=== PATIENT | female | born 1990 | race Caucasian/White ===

== ENCOUNTER 2016-11-22 14:49 | Emergency (ER) | payer BC, OTHER ==
[~2016-11-22] VITALS: Ht 152.4 cm; Wt 94.5 kg
[~2016-11-22 14:49] MED LIST: CITA20TA9 PO; GLC/500 PO; HMLI SQ; WARF5TAB7 PO
[2016-11-22 14:53] VITALS: TEMP 37.1; Ht 152.4 cm; Wt 94.5 kg
--- NOTE | 2016-11-22 17:37 | DIAGNOSTIC IMAGING REPORT ---
CHEST ONE VIEW PORTABLE CLINICAL HISTORY: Mood Disorder COMPARISON STUDY: 01/28/2016 FINDINGS: The cardiac and mediastinal contours are normal. There is no evidence of focal pulmonary consolidation. There is no evidence of failure. No pleural effusions are visualized.[ IMPRESSION: No active disease in the chest. Electronically signed by: Kin Smith M.D. 11/22/2016 5:36 PM Dictated Date/Time: 11/22/2016 5:35 PM
[2016-11-22 17:46] LABS: BASO % 0.2 %; BASO ABS # 0.02 K/uL (0-0.2); COMPLETE YES; EOS % 1.5 %; HEMATOCRIT 38.5 % (37-47); IG% 0.6 %; LYMPH % 22.3 %; LYMPH ABS # 2.19 K/uL (1.2-3.4); MEAN CELL VOLUME 82.4 fL (80-100); MEAN CORPUSCULAR HEMOGLOBIN 28.3 pg (25-34); MEAN CORPUSCULAR HGB CONC 34.3 g/dl (32-36); MEAN PLATELET VOLUME 10.1 fL (7.4-10.4); MONO % 5.1 %; NEUT % 70.3 %; PLATELET COUNT 235 K/uL (130-400); RED BLOOD COUNT 4.67 M/uL (4.2-5.4); WHITE BLOOD COUNT 9.81 K/uL (4.8-10.8)
[2016-11-22] MEDS ORDERED: EFFSR75 PO (17:55)
[2016-11-22 17:56] LABS: INR 1.2 (0.9-1.1); PROTHROMBIN TIME (PATIENT) 12.4 SECONDS (9.0-12.0)
[2016-11-22 18:05] LABS: BUN/CREATININE RATIO 23.9 (10-20); CALCIUM 9.1 mg/dl (8.5-10.1); CREATININE 0.65 mg/dl (0.60-1.20); POTASSIUM 3.8 mmol/L (3.5-5.1)
[2016-11-22] MEDS ORDERED: OPTIRAY 320 IV PRN (18:15)
[2016-11-22 18:16] LABS: ALB/GLOB RATIO 1.3 (0.9-2); THYROID STIMULATING HORMONE 2.35 uIu/ml (0.300-4.500)
--- NOTE | 2016-11-22 20:27 | EMERGENCY ROOM VISIT NOTE ---
History Report prepared by Hoang: Marija Mccullough Under the Supervision of: Dr. Robin Leavitt D.O. First contact with patient: 16:51 Chief Complaint: ANXIETY Stated Complaint: REOCCURING ANXIETY ATTACKS History of Present Illness The patient is a 25 year old female who presents to the Emergency Room with complaints of intermittent, reoccurring anxiety attacks that have been ongoing for the past year and a half. She currently rates her discomfort as a 10/10 in severity. The patient states that she is unsure what has been causing her anxiety attacks, but states that she has been getting them 2-3 times per week. She states that her longest one lasted one hour. The patient states that with each attack, she has been experiencing chest pain describing it as a tightness and diaphoresis. She states that she becomes worked up, has been crying, freaking out, and scratching herself with each attack. The patient stats that if someone tells her to calm down, it worsens her symptoms, but states that music alleviates her symptoms. She states that she is a previous self-mutilator , stating that she used to cut herself. The patient denies any current suicidal or homicidal ideation. She states that when she scratches herself during the anxiety attacks, she feels itchy, and is not trying to do it out of self harm. The patient states that she is on Effexor, but is unsure of her dosage. She states that she has been compliant with her medications. The patient additionally notes with her anxiety attacks she experiences hallucinations. She denies any current or regular auditory or visual hallucinations. The patient notes that she has a diagnosis of depression and anxiety, but denies any other psychiatric diagnosis. She states that she was following with a therapist up until August, but states that her mother's insurance is no longer accepted where she was going, so she had to stop seeing her therapist. The patient states that since she stopped seeing the therapist, her anxiety attacks have worsened. She states that she has a history of diabetes and Factor Five, noting that she is on Warfarin. The patient states that she has her INR checked monthly, and states that last time it was only slightly abnormal. She denies any history of heart disease. The patient states that she had chest pain today, and was seeing her PCP, so she was sent to the emergency department for further evaluation and treatment. Pt denies headache, change in vision, fevers, shortness of breath, nausea, vomiting, diarrhea, pain with urination, and melena. Source of History: patient Onset: year and a half Position: other (global) Symptom Intensity: 08/02 Quality: other (anxiety attacks) Timing: intermittent Modifying Factors (Worsening): other (telling her to calm down) Modifying Factors (Relieving): other (music) Associated Symptoms: + chest pain, + diaphoresis Note: Associated Symptoms: scratching self, crying, freaking out, hallucinations with anxiety attacks. Review of Systems See HPI for pertinent positives & negatives. A total of 10 systems reviewed and were otherwise negative. Past Medical & Surgical Medical Problems: (1) Diabetes mellitus type 2 in obese (2) Hearing loss (3) History of DVT (deep vein thrombosis) (4) History of pulmonary embolism (5) Learning disorder (6) Obesity Surgical Problems: (1) History of dental surgery (2) History of tonsillectomy and adenoidectomy (3) Hx of tympanostomy tubes Family History Diabetes mellitus Heart disease Kidney disease Kidney stones Social History Smoking Status: Never Smoker Alcohol Use: none Drug Use: none Marital Status: single Housing Status: lives with family Current/Historical Medications Scheduled Insulin Lispro (Humalog), 15 UNITS SQ AC Metformin Hcl (Glucophage), 500 MG PO BID Venlafaxine Hcl (Effexor Extended Rel), 75 MG PO DAILY Warfarin Sod (Jantoven), 15 MG PO UD Allergies Coded Allergies: No Known Allergies (Verified , 11/22/16) Physical Exam Vital Signs Date Time Temp Pulse Resp B/P Pulse Ox O2 Delivery O2 Flow Rate FiO2 11/22/16 19:19 95 18 168/72 99 Room Air 11/22/16 17:52 90 15 135/88 97 Room Air 11/22/16 14:53 37.1 104 18 138/75 96 Room Air Physical Exam GENERAL: Sitting up in bed, disheveled, no acute distress, nontoxic. EYE EXAM: normal conjunctiva. OROPHARYNX: no exudate, no erythema, lips, buccal mucosa, and tongue normal and mucous membranes are moist NECK: supple, no nuchal rigidity, no adenopathy, non-tender LUNGS: Clear to auscultation. Normal chest wall mechanics HEART: no murmurs, S1 normal and S2 normal ABDOMEN: abdomen soft, non-tender, normo-active bowel sounds, no masses, no rebound or guarding. BACK: Back is symmetrical on inspection and there is no deformity, no midline tenderness, no CVA tenderness. SKIN: Multiple tattoos. Four abrasions over the dorsal aspect of the right hand , no bleeding. no rashes. UPPER EXTREMITIES: upper extremities are grossly normal. LOWER EXTREMITIES: No pitting edema. Calves are equal bilaterally. NEURO EXAM: Normal sensorium, cranial nerves II-XII grossly intact, normal speech, no gross weakness of arms, no gross weakness of legs. PSYCH: Denies any suicidal or homicidal ideation. Denies any auditory or visual hallucinations. Medical Decision & Procedures ER Provider Diagnostic Interpretation: Xray results per the radiologist and my interpretation. Other results have been interpreted by the radiologist and reviewed by me. CHEST ONE VIEW PORTABLE CLINICAL HISTORY: Mood Disorder COMPARISON STUDY: 01/28/2016 FINDINGS: The cardiac and mediastinal contours are normal. There is no evidence of focal pulmonary consolidation. There is no evidence of failure. No pleural effusions are visualized.[ IMPRESSION: No active disease in the chest. Electronically signed by: Kin Smith M.D. 11/22/2016 5:36 PM Dictated Date/Time: 11/22/2016 5:[address] ANGIOGRAM OF THE CHEST CLINICAL HISTORY: Chest pain. Low INR. SUSPECTED PULMONARY EMBOLISM. HISTORY OF PRIOR PULMONARY EMBOLISM. COMPARISON STUDY: 09/06/2016 TECHNIQUE: Following the IV administration of 90 mL of Optiray-320, CT angiogram of the thorax was performed from the thoracic inlet to the lung bases utilizing the pulmonary embolus protocol. Images are reviewed in the axial, sagittal, and coronal planes. IV contrast was administered without complication. MIP imaging was performed. CT DOSE: 465.48 mGy.cm FINDINGS: No pathologically enlarged axillary mediastinal or hilar lymph nodes were visualized. There was no evidence of thoracic aortic dilatation. There were no pulmonary artery filling defects to indicate acute pulmonary embolism. No pleural effusions are visualized. There was no evidence of focal pulmonary consolidation. There is severe hepatic steatosis. IMPRESSION: 1. No CT evidence of acute pulmonary embolism 2. No evidence of pathologic adenopathy 3. No evidence of acute parenchymal consolidation 4. Severe hepatic steatosis Electronically signed by: Kin Smith M.D. 11/22/2016 8:32 PM Dictated Date/Time: 11/22/2016 8:28 PM Laboratory Results 11/22/16 17:30 Red Blood Count 4.67, Mean Corpuscular Volume 82.4, Mean Corpuscular Hemoglobin 28.3, Mean Corpuscular Hemoglobin Concent 34.3, Mean Platelet Volume 10.1, Neutrophils (%) (Auto) 70.3, Lymphocytes (%) (Auto) 22.3, Monocytes (%) (Auto) 5.1, Eosinophils (%) (Auto) 1.5, Basophils (%) (Auto) 0.2, Neutrophils # (Auto) 6.89, Lymphocytes # (Auto) 2.19, Monocytes # (Auto) 0.50, Eosinophils # (Auto) 0.15, Basophils # (Auto) 0.02 11/22/16 17:30 Test 11/22/16 17:30 11/22/16 17:39 11/22/16 18:25 White Blood Count 9.81 K/uL (4.8-10.8) Red Blood Count 4.67 M/uL (4.2-5.4) Hemoglobin 13.2 g/dL (12.0-16.0) Hematocrit 38.5 % (37-47) Mean Corpuscular Volume 82.4 fL (80-100) Mean Corpuscular Hemoglobin 28.3 pg (25-34) Mean Corpuscular Hemoglobin Concent 34.3 g/dl (32-36) Platelet Count 235 K/uL (130-400) Mean Platelet Volume 10.1 fL (7.4-10.4) Neutrophils (%) (Auto) 70.3 % Lymphocytes (%) (Auto) 22.3 % Monocytes (%) (Auto) 5.1 % Eosinophils (%) (Auto) 1.5 % Basophils (%) (Auto) 0.2 % Neutrophils # (Auto) 6.89 K/uL (1.4-6.5) Lymphocytes # (Auto) 2.19 K/uL (1.2-3.4) Monocytes # (Auto) 0.50 K/uL (0.11-0.59) Eosinophils # (Auto) 0.15 K/uL (0-0.5) Basophils # (Auto) 0.02 K/uL (0-0.2) RDW Standard Deviation 53.2 fL (36.4-46.3) RDW Coefficient of Variation 17.8 % (11.5-14.5) Immature Granulocyte % (Auto) 0.6 % Immature Granulocyte # (Auto) 0.06 K/uL (0.00-0.02) Prothrombin Time 12.4 SECONDS (9.0-12.0) Prothromb Time International Ratio 1.2 (0.9-1.1) Anion Gap 12.0 mmol/L (3-11) Est Creatinine Clear Calc Drug Dose 138.3 ml/min Estimated GFR () 145.0 Estimated GFR (Non- 125.1 BUN/Creatinine Ratio 23.9 (10-20) Calcium Level 9.1 mg/dl (8.5-10.1) Total Bilirubin 0.5 mg/dl (0.2-1) Direct Bilirubin 0.1 mg/dl (0-0.2) Aspartate Amino Transf (AST/SGOT) 16 U/L (15-37) Alanine Aminotransferase (ALT/SGPT) 36 U/L (12-78) Alkaline Phosphatase 86 U/L (45-117) Total Protein 7.7 gm/dl (6.4-8.2) Albumin 4.3 gm/dl (3.4-5.0) Globulin 3.4 gm/dl (2.5-4.0) Albumin/Globulin Ratio 1.3 (0.9-2) Thyroid Stimulating Hormone (TSH) 2.350 uIu/ml (0.300-4.500) Ethyl Alcohol mg/dL < 3.0 mg/dl (0-3) Bedside Glucose 164 mg/dl (70-90) Urine Color YELLOW Urine Appearance CLEAR (CLEAR) Urine pH 6.0 (4.5-7.5) Urine Specific [place] 1.019 (1.000-1.030) Urine Protein NEG (NEG) Urine Glucose (UA) NEG (NEG) Urine Ketones NEG (NEG) Urine Occult Blood NEG (NEG) Urine Nitrite NEG (NEG) Urine Bilirubin NEG (NEG) Urine Urobilinogen NEG (NEG) Urine Leukocyte Esterase MODERATE (NEG) Urine WBC (Auto) 10-30 /hpf (0-5) Urine RBC (Auto) 0-4 /hpf (0-4) Urine Hyaline Casts (Auto) 1-5 /lpf (0-5) Urine Epithelial Cells (Auto) >30 /lpf (0-5) Urine Bacteria (Auto) 1+ (NEG) Laboratory results per my review. ECG Indication: chest pain Rate (beats per minute): 83 Rhythm: sinus rhythm Findings: no ectopy, other (normal axis) ED Course ED COURSE: Vital signs were reviewed and showed tachycardic The patients medical record was reviewed The above diagnostic studies were performed and reviewed. ED treatments and interventions as stated above. 1654: The patient was evaluated in room A8. A complete history and physical examination was performed. 1826: I reevaluated the patient and she is resting comfortably. I discussed doing a CT PE with her and her family and they verbalized complete understanding and agreement. The patient will have a CT PE. 840: CT PE neg 845: Upon reevaluation, the patient is comfortable .I discussed my findings with the patient and family understands and agrees with the treatment plan. Based on the patients age, coexisting illnesses, exam and lab findings the decision to treat as an outpatient was made. The patient remained stable while under my care. The patient appeared well at the time of discharge. The patient will be evaluated for further management. Medical Decision Differential diagnosis: Etiologies such as viral syndrome, otitis, pharyngitis, pneumonia, meningitis, urinary tract infection, sepsis, bacteremia, intussusception, as well as others were entertained. Patient is a 25-year-old female who presents the ER for bouts of anxiety. She notes that she gets these panic attacks but 3 times a week has been having this for about 1.5 years. When she gets these attacks she feels very anxious, heart racing and has some mild chest pain. 2 days ago she started scratching her hand. She denies any suicidal or homicidal ideations. She notes that she would not hurt herself. She notes that she does have a history of depression and anxiety and takes Effexor. She just wishes these anxiety attacks would stop. Patient was evaluated by psych liaison and notes that the patient doesn' t meet any inpatient criteria. She set her up with outpatient psychiatry and will check which places tomorrow except her based on her insurance. Patient family were comfortable with this. Labs were obtained and showed no significant leukocytosis or anemia. BMP along with LFTs, bilirubin and TSH were unremarkable. INR was subtherapeutic at 1.2. Patient notes that she has missed several overdoses. CT PE was performed as she had a subtherapeutic INR did have some chest pain. EKG and chest x-ray were unremarkable. This was negative. Patient tolerated updated bedside. They're instructed to follow up with psychiatry as an outpatient as set forth by our care managers. Any worsening of her symptoms she'll return to the ER. She is also showed start taking her Coumadin again and follow-up with her prescriber. Discussed with Pt concerning signs and symptoms to watch out for. Pt was instructed to follow up with their PCP and discussed with the patient their option to return to the ED at anytime for persistent or worsening symptoms. The appropriate anticipatory guidance and out-patient management, including indications for return to the emergency department, were explained at length to the patient and understood. Impression Primary Impression: Mood disorder Additional Impression: Anxiety Scribe Attestation The scribe's documentation has been prepared under my direction and personally reviewed by me in its entirety. I confirm that the note above accurately reflects all work, treatment, procedures, and medical decision making performed by me. Departure Information Referrals Blake López M.D. (PCP) Patient Instructions My [facility] Additional Instructions Please follow up with your primary care doctor with in the next 24 hours. Any worsening of your symptoms, please return to the ED immediately. This includes any thoughts of of wanting to harm herself, thoughts of wanting to harming anybody else, auditory or visual hallucinations, or any other concerning signs or symptoms from your standpoint. Please make sure that you follow up with outpatient treatment as set forward by care management. Please restart taking your Coumadin tonight and follow up with the coming in clinic for your primary care doctor providing this. Problem Qualifiers
[2016-11-22 20:32] LABS: URINE APPEARANCE CLEAR (CLEAR); URINE BILIRUBIN NEG (NEG); URINE COLOR YELLOW; URINE EPITHELIAL CELL AUTO >30 /lpf (0-5); URINE NITRITE NEG (NEG); URINE SPECIFIC GRAVITY 1.019 (1.000-1.030); UROBILINOGEN NEG (NEG)
--- NOTE | 2016-11-22 20:33 | DIAGNOSTIC IMAGING REPORT ---
CT ANGIOGRAM OF THE CHEST CLINICAL HISTORY: Chest pain. Low INR. SUSPECTED PULMONARY EMBOLISM. HISTORY OF PRIOR PULMONARY EMBOLISM. COMPARISON STUDY: 09/06/2016 TECHNIQUE: Following the IV administration of 90 mL of Optiray-320, CT angiogram of the thorax was performed from the thoracic inlet to the lung bases utilizing the pulmonary embolus protocol. Images are reviewed in the axial, sagittal, and coronal planes. IV contrast was administered without complication. MIP imaging was performed. CT DOSE: 465.48 mGy.cm FINDINGS: No pathologically enlarged axillary mediastinal or hilar lymph nodes were visualized. There was no evidence of thoracic aortic dilatation. There were no pulmonary artery filling defects to indicate acute pulmonary embolism. No pleural effusions are visualized. There was no evidence of focal pulmonary consolidation. There is severe hepatic steatosis. IMPRESSION: 1. No CT evidence of acute pulmonary embolism 2. No evidence of pathologic adenopathy 3. No evidence of acute parenchymal consolidation 4. Severe hepatic steatosis Electronically signed by: Kin Smith M.D. 11/22/2016 8:32 PM Dictated Date/Time: 11/22/2016 8:28 PM
[2016-11-22 20:34] LABS: MANUAL MICROSCOPIC REQUIRED? NO; REVIEW REQ? NO
[2016-11-22 20:55] VITALS: BP 112/56; PULSE 96; O2SAT 100
[2016-11-22 21:00] LABS: BENZODIAZEPINE, URINE NEG (NEG); COCAINE,URINE NEG (NEG); PHENCYCLIDINE, URINE NEG (NEG)
== END 2016-11-22 20:58 | disposition home or self-care (01) ==
LOC: C.EDB 14:51 → C.EDA 20:58
DX: F39 Unspecified mood [affective] disorder (principal); F41.8 Other specified anxiety disorders; E11.9 Type 2 diabetes mellitus without complications; Z86.711 Personal history of pulmonary embolism; Z86.718 Personal history of other venous thrombosis and embolism; Z79.4 Long term (current) use of insulin; Z79.01 Long term (current) use of anticoagulants; Z83.3 Family history of diabetes mellitus; Z82.49 Family history of ischemic heart disease and other diseases of the circulatory system; Z84.1 Family history of disorders of kidney and ureter

== ENCOUNTER 2019-07-04 16:06 | Inpatient (IN) ==
--- OUTSIDE RECORDS SUMMARY | 2019-07-04 16:10 | External Medical Summary | Continuity of Care Document ---
:1990 Author Name Alfredo Crane, Provider Address Unavailable Unavailable , Care Team Providers Name Role Phone Tommie Crane, [email or web address], A Unavailable Unavailable Unavailable Unavailable Unavailable Assessments Assessed Problems:External hemorrhoids with complicationThrombosed external hemorrhoids Problems H/O blood clots (V12.51) (Z86.718) Thrombosed external hemorrhoids (455.4) (K64.5) External hemorrhoids with complication (455.5) (K64.4) Allergies and Adverse Reactions No Known Drug Allergies (Allergy) Medications No Reported Medications Refills: 0 Procedures History of Tonsillectomy Status: Complet ed Immunizations Immunizations not documented Family History Grandmother Family history of diabetes mellitus (V18.0) (Z83.3) Status: Active Grandfather Family history of diabetes mellitus (V18.0) (Z83.3) Status: Active uncle Family history of hypertension (V17.49) (Z82.49) Status: Act ra Social History - Smoking Status Never smoker Plan of Treatment Planned Observations Planned Goals not documented Results No Known Results Results not documented Encounters Appointment; You Reilly M.D. 18-Jul-2014 13:40 Encounter Diagnosis: Problem not documented
[2019-07-04] MEDS ORDERED: SODIUM CHLORIDE 0.9% 1000ML 1,000 ML IV SCH (16:45)
[2019-07-04 17:27] LABS: Basophils # (auto) 0.01 K/uL (0-0.2); Basophils % (auto) 0.1 %; Hematocrit (blood only) 39.3 % (37-47); Hemoglobin 13.3 g/dL (12.0-16.0); Immature Granulocytes # (auto) 0.09 K/uL (0.00-0.02); Immature Granulocytes % (auto) 0.9 %; Lymphocytes % (auto) 12.6 %; Mean Corpuscular Hemoglobin 27.9 pg (25-34); Mean Corpuscular Hgb Conc 33.8 g/dL (32-36); Mean Corpuscular Volume 82.6 fL (80-100); Mean Platelet Volume 10.5 fL (7.4-10.4); Monocytes # (auto) 0.58 K/uL (0.11-0.59); Monocytes % (auto) 5.6 %; Neutrophils # (auto) 8.27 K/uL (1.4-6.5); Neutrophils % (auto) 79.8 %; Platelet Count 187 K/uL (130-400); RDW Coefficient of Variation 17.5 % (11.5-14.5); RDW Standard Deviation 51.8 fL (36.4-46.3); Red Blood Count 4.76 M/uL (4.2-5.4); White Blood Count 10.35 K/uL (4.8-10.8)
[2019-07-04 17:34] LABS: iSTAT Creatinine 0.6 mg/dl (0.6-1.3); iSTAT Hemoglobin 12.9 g/dl (12.0-16.0); iSTAT Ionized Calcium 1.25 mmol/l (1.12-1.32); iSTAT Potassium 3.1 mEq/L (3.3-5.0)
[2019-07-04 17:44] LABS: Alanine Aminotransferase 31 U/L (12-78); Albumin Level 4.2 gm/dl (3.4-5.0); Aspartate Aminotransferase 19 U/L (15-37); BUN Creatinine Ratio 27.2 (10-20); Blood Urea Nitrogen 21 mg/dl (7-18); Calcium 9.1 mg/dl (8.5-10.1); Carbon Dioxide 25 mmol/L (21-32); Chloride 106 mmol/L (98-107); Creatinine Clr Calc Pharmacy 111.5 ml/min; Est GFR (African American) 125.5; Est GFR (Non-African American) 108.3; Glucose 62 mg/dl (70-99); Lipase 173 U/L (73-393); Potassium 3.1 mmol/L (3.5-5.1); Sodium 140 mmol/L (136-145)
[2019-07-04] MEDS ORDERED: OPTIRAY 320 125ml IV PRN (17:45)
[2019-07-04] MEDS ORDERED: POTASSIUM CHLORIDE 20 MEQ TABCR PO STA (17:50)
[2019-07-04 17:51] LABS: Albumin Globulin Ratio 1.1 (0.9-2); Alkaline Phosphatase 100 U/L (45-117); Bilirubin,Total 0.4 mg/dl (0.2-1); Creatine Kinase 51 U/L (26-192); Creatine Kinase MB 1.1 ng/ml (0.5-3.6); Globulin 3.8 gm/dl (2.5-4.0); Troponin I < 0.015 ng/ml (0-0.045)
--- NOTE | 2019-07-04 17:58 | CT Scan Report ---
CT angio chest PE protocol CLINICAL HISTORY: 28 years-old Female presenting with atypical chest pain and shortness of breath. TECHNIQUE: Multidetector CT angiography of the chest was performed after administration of intravenou s contrast. 3-D volumetric and/or maximum intensity projection (MIP) images were subsequently reconst ructed for review. IV contrast: 117 mL of Optiray 320. One or more dose lowering techniques were used consistent with the principles of ALARA (as low as reasonably achievable), including automatic expos ure control, mA or kV adjustment to individual patient size, and/or use of iterative reconstruction. COMPARISON: 11/22/2016. CT DOSE (mGy.cm): The estimated cumulative dose is 394.68 mGy.cm. FINDINGS: [place] topogram: Unremarkable. Pulmonary vasculature: The study is suboptimal for the assessment of the pulmonary vascular tree secondary to timing of the contrast bolus and respiratory motion artifact. Findings highly suspicious for acute pulmonary emboli in segmental and subsegmental pulmonary arteries of the bilateral lower lobes. These are poorly demo nstrated given the respiratory motion artifact in the timing of the contrast bolus. Enlargement of th e main pulmonary artery, which measures 3.2 cm in diameter. No flattening of the interventricular sep nina. No intracardiac filling defect. No reflux of contrast into the hepatic veins. Remaining chest: Soft tissues: Normal thyroid and thoracic inlet. No axillary, supraclavicular, mediastinal, or hilar lymphadenopathy. Normal aorta. Normal heart size. No pericardial or pleural effusion. Hepatic steatos is. Lungs and airways: No pneumothorax. Central airways patent. Pulmonary arteries are not significantly enlarged relative to adjacent bronchi. No interlobular septal thickening. Prominent mosaic attenuatio n. Punctate nodule in the lingula (series 4 image 81), unchanged. No new nodule or focal infiltrate. Musculoskeletal: Normal osseous structures. IMPRESSION: 1. Findings highly suspicious for segmental and subsegmental acute pulmonary emboli in the lower lob es. However, given the degree of respiratory motion artifact and the timing of the contrast bolus, th danita findings are not definitive. A VQ scan could be considered for further confirmation versus short- term follow-up CTA. Alternatively, bilateral lower extremity DVT study could be useful to height the clinical confidence. 2. Main pulmonary artery enlargement is evidence of mild pulmonary hypertension. 3. Mosaic attenuation could suggest small airways disease or have a vascular etiology in the setting of pulmonary emboli. No focal infiltrate to suggest pneumonia or infarct. The report will be called/faxed according to standard departmental protocol for a critical finding. Electronically signed by: Jacky Holland M.D. 07/04/2019 5:57 PM
[2019-07-04 18:14] LABS: Pregnancy Test, Serum Negative (Negative)
--- NOTE | 2019-07-04 18:55 | Ultrasound Report ---
US venous doppler LE BI CLINICAL HISTORY: 28 years-old Female presenting with Pt c/o B/l leg cramp, history of DVT. TECHNIQUE: Real-time grayscale and color and spectral Doppler ultrasound imaging of the veins of the bilateral lower extremities was performed. Compression and augmentation were also utilized. COMPARISON: 09/06/2016. FINDINGS: RIGHT: Common femoral vein: Nonocclusive filling defect consistent with thrombus at the saphenofemoral junct ion. Greater saphenous vein (superficial): Patent. Deep femoral vein: Patent. Femoral vein: Extensive nearly occlusive thrombus throughout the femoral vein. Popliteal vein: Nonocclusive thrombus throughout. Calf veins: Limited thrombus noted within the peroneal vein. Anterior and posterior tibial veins wood nt. Superficial vein within the popliteal fossa likely the lesser saphenous vein also contains thromb us. LEFT: Common femoral vein: Patent. Greater saphenous vein (superficial): Patent. Deep femoral vein: Patent. Femoral vein: Patent. Popliteal vein: Nonocclusive eccentric thrombus. Calf veins: Nonocclusive thrombus in the posterior tibial and peroneal veins. Anterior tibial vein pa tent. Nonocclusive thrombus in the lesser saphenous vein. Other: None. IMPRESSION: Bilateral deep venous thrombosis more extensive on the right. There is suspected acute or acute on ch ronic DVT on the right and largely chronic appearing DVT on the left. The report will be called/faxed according to standard departmental protocol for a critical finding. Electronically signed by: Jacky Holland M.D. 07/04/2019 6:54 PM
[2019-07-04] MEDS ORDERED: WARFARIN SOD 5 MG TAB PO ONE (19:48)
--- NOTE | 2019-07-04 19:58 | History & Physical Report ---
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 CTA Chest revealed high suspicious for segmental and subsegmental acute pulmonary emboli in bilateral lower lobes. Venous Doppler: Bilateral DVT more extensive on the right. Suspected acute DVT on the right and large chronic appearing DVT on the left. Remarkable lab abnormalities include potassium 3.1, BUN 21, creatinine 0.76, glucose 62 Negative troponin, negative hCG, CBC relatively unremarkable Please refer to HPI in regards to patient's extensive past medical history regarding prior anticoagulants Admit to telemetry Initiate heparin drip Given failed Eliquis will discontinue and initiate warfarin 5 mg this evening Monitor PTT, PT/INR replace electrolytes will need to have discussion in a.m. regarding pt recurrent hx of DVT/PE and previous failure of eliquis, xarelto and difficulty maintaining therapeutic INR on warfarin in past Consider discussion with hematology for further management (4) Hypokalemia: repleted in ED repeat bmp in a.m. (5) Diabetes mellitus type 2 in obese: uncontrolled t2dm Last A1C 10.3 on 06/21 On Basaglar, Lispro, Janumet as outpt Hold outpt regimen lantus/novolog per protocol (6) Obesity: encourage lifestyle modifications Disposition: discharge to home when able Follow up: PCP Stephany Castillo PA-C upon discharge Patient was seen and examined in collaboration with Dr. Trejo, please see addendum History of Present Illness Chief Complaint: Chest pain with exertion and RLE pain x 1 day. 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 Patient was in her usual state of health whenever she was walking today and noted to have precordial, nonradiating chest discomfort, not worse with deep breathing or movement. Chest discomfort similar to prior diagnosis of PE. Did not try anything OTC for pain. She also complained of right leg and ankle pain and increased swelling of her right leg. Due to these concerns she called her PCP who recommended she seek ED. Currently she denies any fever, chills, sweats, recent illness, lightheadedness, dizziness, chest pain at rest, palpitations, hemoptysis, nausea, vomiting, abdominal pain, change in her bowel or urinary habits. She denies smoking. Denies OCP use. Of significance patient was first diagnosed with PE at age 19. Was found to have antiphospholipid antibody syndrome. Was on warfarin in past with difficulty maintaining therapeutic INR and therefore was switched to NOAC. Has been on Xarelto and most recently Eliquis. Unfortunately patient recently hospitalized 04/12 at [facility] secondary to CT scan revealing multiple PEs are new from prior study. At this time she was on Eliquis. She was seen by hematology who recommended discontinuing Eliquis and patient was discharged home on Lovenox. She did success with Lovenox in the past and had previously been on it for a year duration, but not a fan of it due to discomfort of injection. She admits to being compliant with Eliquis. She is very frustrated with her frequent hospitalizations without answers as to why she keeps getting blood clots. Patient family members at bedside. Outline of recent medical history: - November 2017: Admitted to [facility] for bilateral pulmonary emboli with possible right heart strain. Found to have Antiphospholipid syndrome. - January 2018: At [facility]. Re-admitted with sub-therapeutic INR, found to have new RLE DVT w/ bilateral pulmonary emboli. Discharged on coumadin. - January 2018 - November 2018: at some point patient started taking Eliquis, after sometime she was unable to afford this and switched to Xarelto. - November 2018: Admitted to [facility], on Xarelto at presentation, diagnosed with recurrent DVT and PE, discharged on Lovenox. Was supposed to follow up with Dr. Dariusz Kohler (hematology at [facility] for recurrent DVT/PE while on OAC). - January 2019: Per [facility] ED note and patient, still on Lovenox at home - February 2019: Transitioned to Eliquis (says PCP switched her to Eliquis and was supplying free samples bc she could not afford Lovenox) Says the only anticoagulant that she did not experience pulmonary emboli or DVT while taking was Lovenox during her teenage years. Stopped coumadin as she was unable to maintain a therapeutic INR. Allergies Allergy/AdvReac Type Severity Reaction Status Date / Time No Known Allergies Allergy Verified 07/04/19 17:16 Home Medications Home Medications Medication Instructions Recorded Confirmed Type apixaban [Eliquis] 10 mg PO BID 07/04/19 07/04/19 History fluoxetine [Prozac] 20 mg PO DAILY 07/04/19 07/04/19 History insulin glargine [Basaglar KwikPen 40 unit SUBCUT HS 07/04/19 07/04/19 History U-100 Insulin] insulin lispro [Admelog SoloStar 15 unit SUBCUT TIDM 07/04/19 07/04/19 History U-100 Insulin] lamotrigine [Lamictal] 100 mg PO DAILY 07/04/19 07/04/19 History sitagliptin-metformin [Janumet] 1 tab PO BIDM 07/04/19 07/04/19 History trazodone 100 mg PO HS 07/04/19 07/04/19 History Past Med/Surg History Medical History Hearing loss (Chronic) Learning disorder (Chronic) History of DVT (deep vein thrombosis) (Chronic) "LLE in 2009 and 12/2015" Diabetes mellitus type 2 in obese (Chronic) Obesity (Chronic) History of pulmonary embolism (Chronic) "06/2010- Multiple segmental and subsegmental pulmonary emboli bilaterally 01/09/16 CTA chest- Small bilateral pulmonary emboli" Substernal chest pain (Acute) Subtherapeutic international normalized ratio (INR) (Acute) Surgical History Hx of tympanostomy tubes (Chronic) History of tonsillectomy and adenoidectomy (Chronic) History of dental surgery (Chronic) Family History Grandfather (Maternal) Coronary heart disease CABG Grandmother (Paternal) Coronary heart disease CABG Social History Preferred Language: Syrian Communication Ability: Effective Current Living Situation: Family Feels Safe at Home: Yes Smoking Status: Never smoker Hx Alcohol Use: Yes Alcohol Intake Frequency: Rarely Hx Substance Use: Yes substance use type: marijuana Last Used Substance Other:: 1 week ago Review of Systems Review of Systems: All systems reviewed & are unremarkable except as noted in HPI & below Results & Data Vital Signs (Past 12 Hours) Vital Signs Temp Pulse Pulse Resp BP BP Pulse Ox 07/04/19 18:00 103 H 18 123/79 98 07/04/19 16:11 37.0 C 113 H 20 146/95 H 98 Laboratory Results Short CBC 07/04/19 Range/Units 17:11 WBC 10.35 (4.8-10.8) K/uL Hgb 13.3 (12.0-16.0) g/dL Hct 39.3 (37-47) % Plt Count 187 (130-400) K/uL BMP 07/04/19 17:11 Sodium 140 Potassium 3.1 L Chloride 106 Carbon Dioxide 25 BUN 21 H Creatinine 0.76 Glucose 62 L Calcium 9.1 Cardiac Enzymes 07/04/19 Range/Units 17:11 Total Creatine Kinase 51 (26-192) U/L CK-MB (CK-2) 1.1 (0.5-3.6) ng/ml Troponin I < 0.015 (0-0.045) ng/ml Liver Function 07/04/19 Range/Units 17:11 Total Bilirubin 0.4 (0.2-1) mg/dl AST 19 (15-37) U/L ALT 31 (12-78) U/L Alkaline Phosphatase 100 (45-117) U/L Albumin 4.2 (3.4-5.0) gm/dl Diagnostic Findings Venous Doppler: IMPRESSION: Bilateral deep venous thrombosis more extensive on the right. There is suspected acute or acute on chronic DVT on the right and largely chronic appearing DVT on the left. Chest CTA: IMPRESSION: 1. Findings highly suspicious for segmental and subsegmental acute pulmonary emboli in the lower lobes. However, given the degree of respiratory motion artifact and the timing of the contrast bolus, these findings are not definitive. A VQ scan could be considered for further confirmation versus short- term follow-up CTA. Alternatively, bilateral lower extremity DVT study could be useful to height the clinical confidence. 2. Main pulmonary artery enlargement is evidence of mild pulmonary hypertension. 3. Mosaic attenuation could suggest small airways disease or have a vascular etiology in the setting of pulmonary emboli. No focal infiltrate to suggest pneumonia or infarct. Medications Administered Ioversol (Optiray 320 125ml) 117 ml IV ONCE PRN PRN Reason: Interaction Checking Stop: 07/08/19 17:44 Last Admin: 07/04/19 17:45 Dose: 117 ml Documented by: [id number] Discontinued Medications Sodium Chloride (Nss 1000ml) 1,000 mls @ 999 mls/hr IV .Q1H1M ALDEN Stop: 07/04/19 17:45 Last Infusion: 07/04/19 18:28 Dose: 0 mls/hr Documented by: [id number] Admin: 07/04/19 17:20 Dose: 999 mls/hr Documented by: [id number] Potassium Chloride (Klor-Con M20) 40 meq PO NOW STA Stop: 07/04/19 17:51 Last Admin: 07/04/19 18:00 Dose: 40 meq Documented by: [id number] Code Status & VTE Plan Code Status Full Code VTE Prophylaxis Plan VTE Prophylaxis will be ordered: Yes Supervising Physician Co-Signing Physician Notes I, Dr. Tyson Trejo, have seen and examined the patient with physician special education assistant and agree with the assessment and plan as above and would like to comment that This is a 28 year old female with OBESITY with BMII of 38.4 who had been taking Eliquis for anticogualtion and presents to the hospital and found to have concerns for exacerbation of acute progression of Thromboembolism as ACUTE PULMONARY EMBOLISM and ACUTE ON CHRONIC DEEP VEIN THROMBOSIS Admission Imaging as below (US venous doppler Bilateral deep venous thrombosis more extensive on the right. There is suspected acute or acute on chronic DVT on the right and largely chronic appearing DVT on the left CT angio chest PE protocol 1. Findings highly suspicious for segmental and subsegmental acute pulmonary emboli in the lower lobes. However, given the degree of respiratory motion artifact and the timing of the contrast bolus, these findings are not definitive. A VQ scan could be considered for further confirmation versus short- term follow-up CTA. Alternatively, bilateral lower extremity DVT study could be useful to height the clinical confidence. 2. Main pulmonary artery enlargement is evidence of mild pulmonary hypertension. 3. Mosaic attenuation could suggest small airways disease or have a vascular etiology in the setting of pulmonary emboli. No focal infiltrate to suggest pneumonia or infarct.) One EXAM general: no acute distress Lungs: breathing on room air, no wheezing, non labored, no use of accessory muscles Heart: regular rate and rhythm Abdomen: soft, nontender Legs: right calf larger than left calf Skin: no rashes observed, has multiple tattoos Neuro/Psych: awake and alert, verbal, oriented to person/time/place, normal affect Patient reports that she has been consistently taking twice a day Eliquis, previously had issues with Coumadin monitoring in the past, when initially diagnosed with ANTIPHOSPHOLIPID SYNDROME at age 19 she was doing well for 1 year on Lovenox but her insurance would not cover the medication At this time, will started patient on IV heparin drip with bolus on admission and start first dose of Coumadin for now as patient may have failed NOAC. In addition, patients obesity also puts her at the borderline on researched efficacy of NOACs for obese patients with a BMI >40 kg/m2 or weight >120 kg due to the lack of clinical data in this population Case management consult needed on drug benefits and costs as outpatient Agree with other medical issues as documented by physician special education assistant My colleague Dr. Whitley will be taking over the patient care as hospitalist physician starting on 07/05/19
[2019-07-04] MEDS ORDERED: HEPARIN 25000 UNIT/500 ML D5W IV ONE (20:50)
[2019-07-04] MEDS ORDERED: HEPARIN SOD 5,000 UNIT/0.5 ML VIAL ONE (20:50)
[2019-07-04] MEDS: Heparin Adult STANDARD Wt-Based Dextrose 5% 25,000 units/500 mL IV SCH (20:56)
[2019-07-04] MEDS ORDERED: GLUCOSE 10 TABS/TUBE PO PRN (21:14)
[2019-07-04] MEDS ORDERED: GLUCAGON FOR INJ 1 MG VIAL SQ PRN (21:14)
[2019-07-04] MEDS ORDERED: GLUCOSE 40% GEL 15 GM TUBE PO PRN (21:14)
[2019-07-04] MEDS ORDERED: ALUMINUM/MAGNESIUM SUSP 30 ML UDC PO PRN (21:14)
[2019-07-04] MEDS ORDERED: TRAZODONE HCL 50 MG TAB PO SCH (21:14)
[2019-07-04] MEDS ORDERED: POLYETHYLENE (MIRALAX) 17 GM PACK PO PRN (21:14)
[2019-07-04] MEDS ORDERED: CARBOHYDRATES FOR HYPOGLYCEMIA PO PRN (21:14)
[2019-07-04] MEDS ORDERED: MAGNESIUM HYDROXIDE SUSP 30 ML UDC PO PRN (21:14)
[2019-07-04] MEDS ORDERED: HEPARIN SODIUM/DEXTROSE 25,000 UNITS/500 ML BAG IV SCH (21:14)
[2019-07-04] MEDS ORDERED: DEXTROSE 50% 50 ML SYRINGE IV PRN (21:14)
[2019-07-04] MEDS ORDERED: ONDANSETRON INJ 2 MG/ML 2 ML VIAL IV PRN (21:14)
[2019-07-04] MEDS: INSULIN GLARGINE SOLOSTAR 100 UNITS/ML 3 ML PEN SC SCH (21:39)
[2019-07-04] MEDS: INSULIN ASPART 100 UNITS/ML 3 ML PEN SC SCH (21:39)
--- NOTE | 2019-07-05 00:10 | Emergency Department Note ---
Entered by Lori Lynn acting as a scribe for William Rick MD History of Present Illness General Chief complaint: Leg Injury/Pain Stated complaint: PAIN IN RT LEG/CHEST DISCOMFORT/FACTOR 5 Time Seen by Provider: 07/04/19 16:32 Source: patient Limitations: no limitations History of Present Illness Provider complaint: Leg pain/ chest discomfort Onset (ago): hour(s) Location: chest and right (leg) Pain Consistency: + constant Maximum Pain Intensity: 6 Quality: + constant Associated symptoms: + shortness of breath and + other (Positive: right leg pain, chest discofmort, purpolish discoloration on right ankle. Negative: numbness or tingling in hands or feet.) The patient is a 28 year old female with past medical history of DVT, substernal chest pain, INR, who presents to the ED with complaints of constant right leg pain and chest discomfort that started a few hours ago. The patient reports her symptoms started after a 15 minute walk to the hospital. She notes she has shortness of breath that is worsened with exertion and relieved by embolization. The patient states she called her PCP and was referred to the ED. She reports she has history of blood clots in her lung and legs. The patient states she was diagnosed with the clot in her legs in March. She notes she takes her eliquis daily and has not missed a dose. The patient additionally states she has never h ad a stress done before because her doctor was worried about too much movement. She reports she has a purplish discoloration on her right ankle. The patient denies numbness or tingling in her hands or feet. Home Medications Home Medications Medication Instructions Recorded Confirmed Type apixaban [Eliquis] 10 mg PO BID 07/04/19 07/04/19 History fluoxetine [Prozac] 20 mg PO DAILY 07/04/19 07/04/19 History insulin glargine [Basaglar KwikPen 40 unit SUBCUT HS 07/04/19 07/04/19 History U-100 Insulin] insulin lispro [Admelog SoloStar 15 unit SUBCUT TIDM 07/04/19 07/04/19 History U-100 Insulin] lamotrigine [Lamictal] 100 mg PO DAILY 07/04/19 07/04/19 History sitagliptin-metformin [Janumet] 1 tab PO BIDM 07/04/19 07/04/19 History trazodone 100 mg PO HS 07/04/19 07/04/19 History Allergies Allergy/AdvReac Type Severity Reaction Status Date / Time No Known Allergies Allergy Verified 07/04/19 17:16 Past Med/Surg History Medical History Hearing loss (Chronic) Learning disorder (Chronic) History of DVT (deep vein thrombosis) (Chronic) "LLE in 2009 and 12/2015" Diabetes mellitus type 2 in obese (Chronic) Obesity (Chronic) History of pulmonary embolism (Chronic) "06/2010- Multiple segmental and subsegmental pulmonary emboli bilaterally 01/09/16 CTA chest- Small bilateral pulmonary emboli" Substernal chest pain (Acute) Subtherapeutic international normalized ratio (INR) (Acute) Surgical History Hx of tympanostomy tubes (Chronic) History of tonsillectomy and adenoidectomy (Chronic) History of dental surgery (Chronic) Family History Grandfather (Maternal) Coronary heart disease CABG Grandmother (Paternal) Coronary heart disease CABG Social History Preferred Language: Luxembourgish Communication Ability: Effective Woods Overseer Required: No Beliefs That Will Affect Care: None Current Living Situation: Parent Other Information That Helps Us Care for You: No Feels Safe at Home: Yes Safety Concerns: Feels Safe At This Time Smoking Status: Never smoker Do You Dip or Chew Tobacco: No ; Second Hand Exposure: No ; Tobacco Cessation Education Requested by Patient: No Hx Alcohol Use: Yes Alcohol type: beer Alcohol Intake Frequency: Rarely Hx Substance Use: No Review of Systems See HPI for pertinent positives & negatives. and A total of 10 systems reviewed and were otherwise negative Physical Exam Vital Signs Vital Signs - 24 hr 07/04/19 16:11 07/04/19 18:00 Temperature 37.0 C Temperature Source Oral Sepsis Recent Fever Within 48 Hours No Sepsis New/Unexplained Change in Mental Status No Sepsis Action Taken by Nursing No Action Required Pulse Rate 113 H Pulse Rate [Apical] 103 H Respiratory Rate 20 18 Respiratory Effort / Characteristics Non-Labored Spontaneous Respiratory Depth Normal Blood Pressure 146/95 H Blood Pressure [Left Arm] 123/79 Blood Pressure Mean 112 Blood Pressure Mean [Left Arm] 93 Blood Pressure Position Sitting Pulse Oximetry 98 98 Oxygen Delivery Method Room Air Room Air GENERAL: Awake, alert, hyperventilating, diaphoretic HENT: Normocephalic, atraumatic. Oropharynx unremarkable. EYES: Normal conjunctiva. Sclera non-icteric. NECK: Supple. No nuchal rigidity. FROM. No JVD. RESPIRATORY: Clear to auscultation. CARDIAC: Regular rate, normal rhythm. Extremities warm and well perfused. Pulses equal. ABDOMEN: Soft, non-distended. No tenderness to palpation. No rebound or guarding. No masses. RECTAL: Deferred. MUSCULOSKELETAL: Chest examination reveals no tenderness. The back is symmetrical on inspection without obvious abnormality. There is no CVA tenderness to palpation. No joint edema. LOWER EXTREMITIES: Calves are equal size bilaterally and non-tender. No edema. No discoloration. NEURO: Normal sensorium. No sensory or motor deficits noted. SKIN: No rash or jaundice noted. Course 1633: The patient was evaluated in room B9. A complete history and physical exam was performed. 1644: I checked on the patient. 175: I checked on the patient. 1907: I discussed the patient's case with Lydia Smith PA-C. The patient will be evaluated for [facility]: Upon reevaluation, the patient appeared to have improvement of her symptoms. I discussed findings with her and the mother. The patient verbalized agreement of the treatment plan. The patient was discharged home. Administered Medications Heparin Sodium/Dextrose (Heparin Sodium/Dextrose) 25,000 units in 500 mls @ 23 mls/hr IV .[id number] ALDEN; Protocol Stop: 08/03/19 20:59 Last Admin: 07/04/19 20:56 Dose: 1,150 units/hr, 23 mls/hr Documented by: [id number] Cosigned by: [id number] Insulin Aspart (Novolog Flexpen) 0 units SC ACHS ALDEN Stop: 08/03/19 21:13 Last Admin: 07/04/19 21:39 Dose: Not Given Documented by: [id number] Cosigned by: [id number] Insulin Glargine (Lantus Solostar Pen) 0 units SC BID ALDEN; Protocol Stop: 08/03/19 21:13 Last Admin: 07/04/19 21:39 Dose: Not Given Documented by: [id number] Cosigned by: [id number] Trazodone HCl (Desyrel) 100 mg PO HS ALDEN Stop: 08/03/19 21:13 Last Admin: 07/04/19 22:09 Dose: 100 mg Documented by: [id number] Discontinued Medications Heparin Sodium (Porcine) (Heparin Sodium (Porcine)) Confirm Administered Dose 5,000 units .ROUTE .STK-MED ONE Stop: 07/04/19 20:51 Last Admin: 07/04/19 20:55 Dose: 5,000 units Documented by: [id number] Cosigned by: [id number] Heparin Sodium/Dextrose (Heparin Sodium/Dextrose) Confirm Administered Dose 25,000 units IV .STK-MED ONE Stop: 07/04/19 20:51 Last Admin: 07/04/19 20:57 Dose: Not Given Documented by: [id number] Sodium Chloride (Nss 1000ml) 1,000 mls @ 999 mls/hr IV .Q1H1M ALDEN Stop: 07/04/19 17:45 Last Infusion: 07/04/19 18:28 Dose: 0 mls/hr Documented by: [id number] Admin: 07/04/19 17:20 Dose: 999 mls/hr Documented by: [id number] Ioversol (Optiray 320 125ml) 117 ml IV ONCE PRN PRN Reason: Interaction Checking Stop: 07/08/19 17:44 Last Admin: 07/04/19 17:45 Dose: 117 ml Documented by: [id number] Potassium Chloride (Klor-Con M20) 40 meq PO NOW STA Stop: 07/04/19 17:51 Last Admin: 07/04/19 18:00 Dose: 40 meq Documented by: [id number] Warfarin Sodium (Coumadin) 5 mg PO NOW ONE Stop: 07/04/19 19:49 Last Admin: 07/04/19 19:58 Dose: 5 mg Documented by: [id number] Medical Decision Making Differential Diagnosis Differential diagnosis: Etiologies such as cardiac ischemia, aortic dissection, pulmonary embolism, pneumonia, pneumothorax, musculoskeletal, infections, pericarditis, myocarditis, esophageal rupture, gastrointestinal, as well as others were entertained. Medical Records Attestation: I reviewed the patient's medical records. Home Medications Current Medication List: was personally reviewed by me Laboratory Data Attestation: I reviewed the patient's lab results. Result diagrams: 07/04/19 17:11 07/04/19 17:11 Lab Results 07/04/19 07/04/19 07/04/19 Range/Units 16:41 16:42 17:11 WBC 10.35 (4.8-10.8) K/uL RBC 4.76 (4.2-5.4) M/uL Hgb 13.3 (12.0-16.0) g/dL POC Hgb (12.0-16.0) g/dl Hct 39.3 (37-47) % POC Hct (37-47) % MCV 82.6 (80-100) fL MCH 27.9 (25-34) pg MCHC 33.8 (32-36) g/dL RDW Std Deviation 51.8 H (36.4-46.3) fL RDW Coeff of Rosita 17.5 H (11.5-14.5) % Plt Count 187 (130-400) K/uL MPV 10.5 H (7.4-10.4) fL Immature Gran % (Auto) 0.9 % Neut % (Auto) 79.8 % Lymph % (Auto) 12.6 % [place] % (Auto) 5.6 % Eos % (Auto) 1.0 % Baso % (Auto) 0.1 % Immature Gran # (Auto) 0.09 H (0.00-0.02) K/uL Neut # (Auto) 8.27 H (1.4-6.5) K/uL Lymph # (Auto) 1.30 (1.2-3.4) K/uL [place] # (Auto) 0.58 (0.11-0.59) K/uL Eos # (Auto) 0.10 (0-0.5) K/uL Baso # (Auto) 0.01 (0-0.2) K/uL POC Sodium (135-144) mEq/L Sodium (136-145) mmol/L POC Potassium (3.3-5.0) mEq/L Potassium (3.5-5.1) mmol/L POC Chloride (101-112) mEq/L Chloride (98-107) mmol/L Carbon Dioxide (21-32) mmol/L POC Total CO2 (24-31) mEq/l Anion Gap (3-11) POC Anion Gap (16-25) mmol/L POC BUN (7-18) mg/dl BUN (7-18) mg/dl Creatinine (0.6-1.2) mg/dl POC Creatinine (0.6-1.3) mg/dl Est Cr Clr Drug Dosing ml/min Est GFR ( Amer) Est GFR (Non-Af Amer) BUN/Creatinine Ratio (10-20) Glucose (70-99) mg/dl POC Glucose 64 L* 68 L* (70-99) POC Glucose (other) (70-99) mg/dl Calcium (8.5-10.1) mg/dl POC Ioniz Calcium Gabriella (1.12-1.32) mmol/l Total Bilirubin (0.2-1) mg/dl AST (15-37) U/L ALT (12-78) U/L Alkaline Phosphatase (45-117) U/L Total Creatine Kinase (26-192) U/L CK-MB (CK-2) (0.5-3.6) ng/ml CK/CKMB % Calc (0-3.0) Troponin I (0-0.045) ng/ml Total Protein (6.4-8.2) gm/dl Albumin (3.4-5.0) gm/dl Globulin (2.5-4.0) gm/dl Albumin/Globulin Ratio (0.9-2) Lipase (73-393) U/L HCG, Qual (Negative) 07/04/19 07/04/19 07/04/19 Range/Units 17:11 17:11 17:22 WBC (4.8-10.8) K/uL RBC (4.2-5.4) M/uL Hgb (12.0-16.0) g/dL POC Hgb 12.9 (12.0-16.0) g/dl Hct (37-47) % POC Hct 38 (37-47) % MCV (80-100) fL MCH (25-34) pg MCHC (32-36) g/dL RDW Std Deviation (36.4-46.3) fL RDW Coeff of Rosita (11.5-14.5) % Plt Count (130-400) K/uL MPV (7.4-10.4) fL Immature Gran % (Auto) % Neut % (Auto) % Lymph % (Auto) % [place] % (Auto) % Eos % (Auto) % Baso % (Auto) % Immature Gran # (Auto) (0.00-0.02) K/uL Neut # (Auto) (1.4-6.5) K/uL Lymph # (Auto) (1.2-3.4) K/uL [place] # (Auto) (0.11-0.59) K/uL Eos # (Auto) (0-0.5) K/uL Baso # (Auto) (0-0.2) K/uL POC Sodium 139 (135-144) mEq/L Sodium 140 (136-145) mmol/L POC Potassium 3.1 L (3.3-5.0) mEq/L Potassium 3.1 L (3.5-5.1) mmol/L POC Chloride 104 (101-112) mEq/L Chloride 106 (98-107) mmol/L Carbon Dioxide 25 (21-32) mmol/L POC Total CO2 24 (24-31) mEq/l Anion Gap 9.0 (3-11) POC Anion Gap 16.0 (16-25) mmol/L POC BUN 21 H (7-18) mg/dl BUN 21 H (7-18) mg/dl Creatinine 0.76 (0.6-1.2) mg/dl POC Creatinine 0.6 (0.6-1.3) mg/dl Est Cr Clr Drug Dosing 111.5 ml/min Est GFR ( Amer) 125.5 Est GFR (Non-Af Amer) 108.3 BUN/Creatinine Ratio 27.2 H (10-20) Glucose 62 L (70-99) mg/dl POC Glucose (70-99) POC Glucose (other) 60 L* (70-99) mg/dl Calcium 9.1 (8.5-10.1) mg/dl POC Ioniz Calcium Gabriella 1.25 (1.12-1.32) mmol/l Total Bilirubin 0.4 (0.2-1) mg/dl AST 19 (15-37) U/L ALT 31 (12-78) U/L Alkaline Phosphatase 100 (45-117) U/L Total Creatine Kinase 51 (26-192) U/L CK-MB (CK-2) 1.1 (0.5-3.6) ng/ml CK/CKMB % Calc 2.2 (0-3.0) Troponin I < 0.015 (0-0.045) ng/ml Total Protein 8.0 (6.4-8.2) gm/dl Albumin 4.2 (3.4-5.0) gm/dl Globulin 3.8 (2.5-4.0) gm/dl Albumin/Globulin Ratio 1.1 (0.9-2) Lipase 173 (73-393) U/L HCG, Qual Negative (Negative) Imaging Data Radiologist's Impression: Radiology results as stated below per my review and the radiologist's interpretation: CT angio chest PE protocol CLINICAL HISTORY: 28 years-old Female presenting with atypical chest pain and shortness of breath. TECHNIQUE: Multidetector CT angiography of the chest was performed after administration of intravenous contrast. 3-D volumetric and/or maximum intensity projection (MIP) images were subsequently reconstructed for review. IV contrast: 117 mL of Optiray 320. One or more dose lowering techniques were used consistent with the principles of ALARA (as low as reasonably achievable), including automatic exposure control, mA or kV adjustment to individual patient size, and/or use of iterative reconstruction. COMPARISON: 11/22/2016. CT DOSE (mGy.cm): The estimated cumulative dose is 394.68 mGy.cm. FINDINGS: Powder Loader topogram: Unremarkable. Pulmonary vasculature: The study is suboptimal for the assessment of the pulmonary vascular tree secondary to timing of the contrast bolus and respiratory motion artifact. Findings highly suspicious for acute pulmonary emboli in segmental and subsegmental pulmonary arteries of the bilateral lower lobes. These are poorly demonstrated given the respiratory motion artifact in the timing of the contrast bolus. Enlargement of the main pulmonary artery, which measures 3.2 cm in d iameter. No flattening of the interventricular septum. No intracardiac filling defect. No reflux of contrast into the hepatic veins. Remaining chest: Soft tissues: Normal thyroid and thoracic inlet. No axillary, supraclavicular, mediastinal, or hilar lymphadenopathy. Normal aorta. Normal heart size. No pericardial or pleural effusion. Hepatic steatosis. Lungs and airways: No pneumothorax. Central airways patent. Pulmonary arteries are not significantly enlarged relative to adjacent bronchi. No interlobular septal thickening. Prominent mosaic attenuation. Punctate nodule in the lingula (series 4 image 81), unchanged. No new nodule or focal infiltrate. Musculoskeletal: Normal osseous structures. IMPRESSION: 1. Findings highly suspicious for segmental and subsegmental acute pulmonary em boli in the lower lobes. However, given the degree of respiratory motion artifact and the timing of the contrast bolus, these findings are not definitive. A VQ scan could be considered for further confirmation versus short- term follow-up CTA. Alternatively, bilateral lower extremity DVT study could be useful to height the clinical confidence. 2. Main pulmonary artery enlargement is evidence of mild pulmonary hypertension. 3. Mosaic attenuation could suggest small airways disease or have a vascular etiology in the setting of pulmonary emboli. No focal infiltrate to suggest pneumonia or infarct. The report will be called/faxed according to standard departmental protocol for a critical finding. Electronically signed by: Jacky Holland M.D. 07/04/2019 5:57 PM US venous doppler LE BI CLINICAL HISTORY: 28 years-old Female presenting with Pt c/o B/l leg cramp, history of DVT. TECHNIQUE: Real-time grayscale and color and spectral Doppler ultrasound imaging of the veins of the bilateral lower extremities was performed. Compression and augmentation were also utilized. COMPARISON: 09/06/2016. FINDINGS: RIGHT: Common femoral vein: Nonocclusive filling defect consistent with thrombus at the saphenofemoral junction. Greater saphenous vein (superficial): Patent. Deep femoral vein: Patent. Femoral vein: Extensive nearly occlusive thrombus throughout the femoral vein. Popliteal vein: Nonocclusive thrombus throughout. Calf veins: Limited thrombus noted within the peroneal vein. Anterior and posterior tibial veins patent. Superficial vein within the popliteal fossa likely the lesser saphenous vein also contains thrombus. LEFT: Common femoral vein: Patent. Greater saphenous vein (superficial): Patent. Deep femoral vein: Patent. Femoral vein: Patent. Popliteal vein: Nonocclusive eccentric thrombus. Calf veins: Nonocclusive thrombus in the posterior tibial and peroneal veins. Anterior tibial vein patent. Nonocclusive thrombus in the lesser saphenous vein. Other: None. IMPRESSION: Bilateral deep venous thrombosis more extensive on the right. There is suspected acute or acute on chronic DVT on the right and largely chronic appearing DVT on the left. The report will be called/faxed according to standard departmental protocol for a critical finding. Electronically signed by: Jacky Holland M.D. 07/04/2019 6:54 PM ECG Data Attestation: I personally reviewed and interpreted this ECG as follows: Indication: chest pain Rate (beats per minute): 94 Rhythm: normal sinus Findings: + other (Normal axis and intervals); no ST depression and no ST elevation Blood Pressure Blood Pressure Findings: Normal blood pressure Blood Pressure Disposition: did not require urgent referral MDM Narrative This is a 28-year-old female who presents emergency department complaining of cramping in her legs as well as chest pain. Patient has a history of DVT as well as PE and is on Eliquis. She denies missing any doses of the Eliquis. Ultrasound of the lower extremities are concerning for acute DVT in the does appear to be acute PE on the CAT scan of the chest. In addition the patient's potassium was repleted here in the emergency department. Because of the failure of Eliquis I did discuss the case with the hospitalist service who agreed to admit the patient. Patient family were in agreement with the treatment plan. Impression & Plan DVT, bilateral lower limbs, Bilateral pulmonary embolism, Diabetes mellitus type 2 in obese Discharge Plan Visit Data *Final* Discharge Date/Time: 07/04/19 20:30 Chief Complaint: Leg Injury/Pain Stated Complaint: PAIN IN RT LEG/CHEST DISCOMFORT/FACTOR 5 ED Provider: William Rick Discharge Problem: DVT, bilateral lower limbs, Bilateral pulmonary embolism, Diabetes mellitus type 2 in obese Patient Disposition: Admitted As Inpatient Discharge Instructions Interventions: ED Discharge Assessment Last Done: 07/04/19 20:30 The scribe's documentation has been prepared under my direction and personally reviewed by me in its entirety. I confirm that the note above accurately reflects all work, treatment, procedures, and medical decision making performed by me.
[2019-07-05 03:12] LABS: Hematocrit (blood only) 34.3 % (37-47); Hemoglobin 11.5 g/dL (12.0-16.0); Mean Corpuscular Hgb Conc 33.5 g/dL (32-36); Mean Corpuscular Volume 83.7 fL (80-100); Mean Platelet Volume 10.3 fL (7.4-10.4); Platelet Count 177 K/uL (130-400); RDW Coefficient of Variation 17.7 % (11.5-14.5); RDW Standard Deviation 53.7 fL (36.4-46.3); White Blood Count 8.69 K/uL (4.8-10.8)
[2019-07-05 03:30] LABS: Albumin Level 3.3 gm/dl (3.4-5.0); BUN Creatinine Ratio 28.7 (10-20); Calcium 8.1 mg/dl (8.5-10.1); Creatinine Clr Calc Pharmacy 118.5 ml/min; Est GFR (African American) 136.2; Est GFR (Non-African American) 117.6; Potassium 3.6 mmol/L (3.5-5.1)
[2019-07-05 03:37] LABS: Partial Thromboplastin Ratio 2.1
[2019-07-05 03:39] LABS: Partial Thromboplastin Time 57.8 Seconds (21.0-31.0)
[2019-07-05 03:43] LABS: Albumin Globulin Ratio 1.1 (0.9-2); Bilirubin,Total 0.4 mg/dl (0.2-1); Globulin 3.1 gm/dl (2.5-4.0); Total Protein 6.4 gm/dl (6.4-8.2)
[2019-07-05] MEDS ORDERED: PNEUMOCOCCAL ADMINISTRATION CHARGE ONE (04:45)
[2019-07-05] MEDS ORDERED: PNEUMOCOCCAL POLYSACCHARIDES 25 MCG/0.5 ML VIAL/SYR IM ONE (04:45)
[2019-07-05] MEDS: INSULIN ASPART 100 UNITS/ML 3 ML PEN SC SCH ×4 (07:52→21:14)
[2019-07-05] MEDS: INSULIN GLARGINE SOLOSTAR 100 UNITS/ML 3 ML PEN SC SCH (07:53)
[2019-07-05] MEDS: lamoTRIgine 100 MG TAB PO SCH (07:53)
[2019-07-05] MEDS: FLUOXETINE HCL 20 MG CAP PO SCH (07:55)
[2019-07-05] MEDS ORDERED: INSULIN GLARGINE SOLOSTAR 100 UNITS/ML 3 ML PEN SC SCH (08:31)
[2019-07-05 08:47] LABS: Prothrombin Time 10.7 Seconds (9.0-12.0)
[2019-07-05] MEDS ORDERED: PHARMACY GLYCEMIC MGMT CONSULT PRN (14:11)
--- NOTE | 2019-07-05 14:19 | Hospitalist Progress Note ---
Date of Service July 05, 2019 Assessment & Plan (1) Bilateral pulmonary embolism: (2) DVT, bilateral lower limbs: (3) Antiphospholipid antibody syndrome: Patient is a 28 yr female with H/O antiphospholipid antibody syndrome, recurrent DVTs/PEs, DM II, bipolar disorder, depression, morbid obesity who presents secondary to exertional chest pain and right leg pain x1 day. Acute pulmonary emboli B/L R LE DVT H/O antiphospholipid syndrome, recurrent DVT, PEs --CTA:high suspicious for segmental and subsegmental acute pulmonary emboli in bilateral lower lobes. --Venous Doppler: Bilateral DVT more extensive on the right. Suspected acute DVT on the right and large chronic appearing DVT on the left. Negative troponin, negative hCG Was on Eliquis 10 mg p.o. twice daily Given history of antiphospholipid antibody syndrome, patient not an ideal candidate for Eliquis Continue heparin, Coumadin Monitor PT/INR Appreciate input from Needs follow-up with Coumadin clinic upon discharge Saturating well on room air As per patient, due to insurance issues patient cannot afford Lovenox (4) Hypokalemia: Replace and monitor electrolytes as needed (5) Diabetes mellitus type 2 in obese: uncontrolled DM II Last A1C 10.3 on 06/21 On Basaglar, Lispro, Janumet as outpt Hold outpt regimen Continue lantus/novolog per protocol (6) Obesity: BMI:38.1 encourage lifestyle modifications DVT Px: on Heparin, coumadin Code Status Full Code Disposition: Expected discharge home in stable Follow up: PCP Stephany Castillo PA-C upon discharge Subjective Patient is seen and examined at bedside Complains of pleuritic chest pain, right leg discomfort Also reports shortness of breath on exertion On Heparin ggt No bleeding issues Offers no other complaints Review of Systems Review of Systems: All systems reviewed & are unremarkable except as noted in HPI & below Physical Exam Physical Exam: Physical Exam: Vitals signs as noted above General Appearance:Obese, no apparent distress Head: normocephalic, Atraumatic Eyes: normal inspection, EOMI Neck: supple, Trachea midline Respiratory/Chest: Normal breath sounds, CTA Cardiovascular: S1, S2, No murmur Abdomen/GI:Soft, Non tender, Bowel sounds present Extremities/Musculoskelatal:normal inspection, Right leg tender Neurologic/Psych:AAOX3, grossly no focal neurological deficits Skin: normal color, warm Results & Data Vital Signs (Past 12 Hours) Vital Signs Temp Pulse Pulse Resp BP BP Pulse Ox 07/05/19 11:00 37.0 C 88 16 118/77 97 07/05/19 08:00 87 07/05/19 06:44 37.0 C 89 20 117/73 98 07/05/19 03:41 36.6 C 98 H 18 113/73 96 Laboratory Results Short CBC 07/04/19 07/05/19 Range/Units 17:11 03:03 WBC 10.35 8.69 (4.8-10.8) K/uL Hgb 13.3 11.5 L (12.0-16.0) g/dL Hct 39.3 34.3 L (37-47) % Plt Count 187 177 (130-400) K/uL BMP 07/04/19 07/05/19 17:11 03:03 Sodium 140 140 Potassium 3.1 L 3.6 D Chloride 106 106 Carbon Dioxide 25 25 BUN 21 H 20 H Creatinine 0.76 0.71 Glucose 62 L 156 H Calcium 9.1 8.1 L Cardiac Enzymes 07/04/19 Range/Units 17:11 Total Creatine Kinase 51 (26-192) U/L CK-MB (CK-2) 1.1 (0.5-3.6) ng/ml Troponin I < 0.015 (0-0.045) ng/ml Liver Function 07/04/19 07/05/19 Range/Units 17:11 03:03 Total Bilirubin 0.4 0.4 (0.2-1) mg/dl AST 19 16 (15-37) U/L ALT 31 28 (12-78) U/L Alkaline Phosphatase 100 77 (45-117) U/L Albumin 4.2 3.3 L (3.4-5.0) gm/dl (1) DVT, bilateral lower limbs Affected thrombotic vein of extremity: unspecified vein of extremity Chronicity: unspecified Qualified Code(s): I82.403 - Acute embolism and thrombosis of unspecified deep veins of lower extremity, bilateral
[2019-07-05] MEDS ORDERED: INSULIN GLARGINE SOLOSTAR 100 UNITS/ML 3 ML PEN SC ONE ×2 (14:30→21:00)
--- NOTE | 2019-07-05 14:43 | Pharmacy Report ---
Glycemic Control Consultation - Date of Service July 05, 2019 - Scope Scope: Glycemic Pharmacist consulted by Dr Whitley on 07/05/19 for glycemic control and to write orders per [facility] inpatient glycemic control protocol - Objective Weight: 88.6 kg Accuchecks BSG (last 24hrs): 07/04/19 07/04/19 07/04/19 16:41 16:42 17:11 Glucose 62 L POC Glucose 64 L* 68 L* POC Glucose (other) 07/04/19 07/04/19 07/05/19 17:22 21:16 03:03 Glucose 156 H POC Glucose 80 POC Glucose (other) 60 L* 07/05/19 07/05/19 07:00 11:11 Glucose POC Glucose 244 H 283 H POC Glucose (other) Laboratory Data (last 24hrs): 07/04/19 07/05/19 17:11 03:03 Potassium 3.1 L 3.6 D Carbon Dioxide 25 25 Anion Gap 9.0 9.0 Creatinine 0.76 0.71 Est Cr Clr Drug Dosing 111.5 118.5 - Recent Pertinent Medications Outpatient Anti-diabetic Regimen: * Lantus 40 units HS, Lispro 15 units TIDM, Janumet * A1c = 10.3 % 06/21 per physician report The patient is currently receiving: * Basal insulin: Lantus scale 0-15 units every 12 hours * Correctional Insulin: Novolog Correction per scale ACHS Goal Range: Low 120 mg/dL - High 140 mg/dL Correction Factor: 25 mg/dL/unit * Prandial insulin: Per carb ratio of 1 unit per 9 grams CHO consumed Risk Factors for Insulin Resistance: * Steroids: * Infection: * Pressors: * IVF: Heparin gtt * Recent Surgery * Diet: T2DM * Mechanical Ventilation: - Assessment & Plan Assessment & Plan: ASSESSMENT: * Ms. Berkowitz was admitted for pulmonary embolism, has a history of DVT/PE, obesity * Patient was hypoglycemic on admission and did not receive her nightly lantus dose, hyperglycemic this morning, suspect combination of basal deficiency, dextrose from heparin infusion and need for tighter carb ratio/correction factor. However, A1c 10.3% indicates poor outpatient control, difficult to predict inpatient insulin needs. * Will give additional dose of lantus this afternoon- up to 30 units (weight based stress of two full daily dose) and place a scale for PM for additional if needed (up to weight based stress of 3/outpatient dose stress of 2) * Novolog parameters tightened to between weight based stress of 2/3- tis is also between outpatient stressed dose of 1/2 PLAN FOR INPATIENT GLYCEMIC CONTROL: * Holding outpatient oral diabetes medications * Basal insulin * Lantus 15 units x1 this AM * 15 units x 1 this evening * Scale for PM 10/15/20 units (up to total daily dose of 50 units) * Bolus insulin * NovoLog per scale ACHS or Q6hrs while NPO * Goal Range: Low 110 mg/dL - High 140 mg/dL * Correction Factor: 20 mg/dL/unit * Nutritional / Prandial insulin per carb ratio of 1 unit per 7 grams CHO consumed * Please note that the plan above was derived based on current level of insulin resistance and hospital stress. These recommendations are appropriate for inpatient admission only. Plan of care upon discharge will need to be reassessed to avoid potential outpatient hypo/hyperglycemia. Thank you.
[2019-07-05] MEDS: WARFARIN SOD 7.5 MG TAB PO SCH (17:19)
[2019-07-05] MEDS: Heparin Adult STANDARD Wt-Based Dextrose 5% 25,000 units/500 mL IV SCH (17:26)
[2019-07-05] MEDS: ACETAMINOPHEN 325 MG TAB PO PRN (17:43)
[2019-07-05] MEDS: TRAZODONE HCL 100 MG TAB PO PRN (21:16)
[2019-07-06] MEDS ORDERED: INSULIN ASPART 100 UNITS/ML 3 ML PEN SC ONE (02:00)
[2019-07-06 05:42] LABS: Hematocrit (blood only) 37.2 % (37-47); Hemoglobin 12.2 g/dL (12.0-16.0); Mean Corpuscular Hemoglobin 27.7 pg (25-34); Mean Corpuscular Hgb Conc 32.8 g/dL (32-36); Mean Corpuscular Volume 84.5 fL (80-100); Mean Platelet Volume 10.7 fL (7.4-10.4); Platelet Count 190 K/uL (130-400); RDW Coefficient of Variation 17.8 % (11.5-14.5); RDW Standard Deviation 54.9 fL (36.4-46.3); White Blood Count 5.82 K/uL (4.8-10.8)
[2019-07-06 06:05] LABS: Prothrombin Time 10.5 Seconds (9.0-12.0)
[2019-07-06 06:10] LABS: BUN Creatinine Ratio 22.1 (10-20); Calcium 8.6 mg/dl (8.5-10.1); Creatinine Clr Calc Pharmacy 134.2 ml/min; Est GFR (African American) 143.5; Est GFR (Non-African American) 123.8; Potassium 3.5 mmol/L (3.5-5.1)
[2019-07-06 06:17] LABS: Partial Thromboplastin Time 54.1 Seconds (21.0-31.0)
[2019-07-06] MEDS: lamoTRIgine 100 MG TAB PO SCH (08:43)
[2019-07-06] MEDS: FLUOXETINE HCL 20 MG CAP PO SCH (08:44)
[2019-07-06] MEDS: INSULIN ASPART 100 UNITS/ML 3 ML PEN SC SCH ×4 (08:46→20:24)
[2019-07-06] MEDS ORDERED: INSULIN GLARGINE SOLOSTAR 100 UNITS/ML 3 ML PEN SC ONE (11:30)
[2019-07-06] MEDS: ACETAMINOPHEN 325 MG TAB PO PRN ×2 (12:10→20:24)
[2019-07-06] MEDS: Heparin Adult STANDARD Wt-Based Dextrose 5% 25,000 units/500 mL IV SCH (13:19)
[2019-07-06] MEDS: LIDOCAINE 5% 1 PATCH TD SCH (13:34)
[2019-07-06] MEDS: WARFARIN SOD 7.5 MG TAB PO SCH (16:50)
--- NOTE | 2019-07-06 18:53 | Hospitalist Progress Note ---
Date of Service July 06, 2019 Assessment & Plan (1) Bilateral pulmonary embolism: (2) DVT, bilateral lower limbs: (3) Antiphospholipid antibody syndrome: Patient is a 28 yr female with H/O antiphospholipid antibody syndrome, recurrent DVTs/PEs, DM II, bipolar disorder, depression, morbid obesity who presents secondary to exertional chest pain and right leg pain x1 day. Acute pulmonary emboli B/L R LE DVT H/O antiphospholipid syndrome, recurrent DVT, PEs --CTA:high suspicious for segmental and subsegmental acute pulmonary emboli in bilateral lower lobes. --Venous Doppler: Bilateral DVT more extensive on the right. Suspected acute DVT on the right and large chronic appearing DVT on the left. Negative troponin, negative hCG Was on Eliquis 10 mg p.o. twice daily Given history of antiphospholipid antibody syndrome, patient not an ideal candidate for Eliquis Appreciate input from Continue heparin, Coumadin Monitor PT/INR: 1.0 We will give 7.5 mg Coumadin today Needs follow-up with Coumadin clinic upon discharge (4) Hypokalemia: Replace and monitor electrolytes as needed (5) Diabetes mellitus type 2 in obese: uncontrolled DM II Last A1C 10.3 on 06/21 On Basaglar, Lispro, Janumet as outpt Hold outpt regimen Continue lantus/novolog per protocol (6) Obesity: BMI:38.1 encourage lifestyle modifications DVT Px: on Heparin, coumadin Code Status Full Code Disposition: Expected discharge home in stable Patient cannot afford Lovenox, due to insurance issues Follow up: PCP Stephany Castillo PA-C upon discharge Subjective Patient is seen and examined at bedside Pleuritic chest pain improved Still has some leg pain Denies any shortness of breath Offers no other complaints Review of Systems Review of Systems: All systems reviewed & are unremarkable except as noted in HPI & below Physical Exam Physical Exam: Physical Exam: Vitals signs as noted above General Appearance:Obese, no apparent distress Head: normocephalic, Atraumatic Eyes: normal inspection, EOMI Neck: supple, Trachea midline Respiratory/Chest: Normal breath sounds, CTA Cardiovascular: S1, S2, No murmur Abdomen/GI:Soft, Non tender, Bowel sounds present Extremities/Musculoskelatal:normal inspection, Right leg tender Neurologic/Psych:AAOX3, grossly no focal neurological deficits Skin: normal color, warm Results & Data Vital Signs (Past 12 Hours) Vital Signs Temp Pulse Pulse Resp BP Pulse Ox 07/06/19 16:30 84 07/06/19 15:15 36.5 C 81 18 99/62 L 95 07/06/19 11:15 36.7 C 88 16 99/62 L 97 Laboratory Results Short CBC 07/06/19 Range/Units 05:15 WBC 5.82 (4.8-10.8) K/uL Hgb 12.2 (12.0-16.0) g/dL Hct 37.2 (37-47) % Plt Count 190 (130-400) K/uL BMP 07/06/19 05:15 Sodium 139 Potassium 3.5 Chloride 105 Carbon Dioxide 26 BUN 14 Creatinine 0.63 Glucose 177 H Calcium 8.6 (1) DVT, bilateral lower limbs Affected thrombotic vein of extremity: unspecified vein of extremity Chronicity: unspecified Qualified Code(s): I82.403 - Acute embolism and thrombosis of unspecified deep veins of lower extremity, bilateral
[2019-07-06] MEDS ORDERED: INSULIN GLARGINE SOLOSTAR 100 UNITS/ML 3 ML PEN SC SCH (21:00)
[2019-07-06] MEDS: TRAZODONE HCL 100 MG TAB PO PRN (23:02)
[2019-07-07 06:12] LABS: Hematocrit (blood only) 34.9 % (37-47); Hemoglobin 11.7 g/dL (12.0-16.0); Mean Corpuscular Hemoglobin 27.9 pg (25-34); Mean Corpuscular Hgb Conc 33.5 g/dL (32-36); Mean Corpuscular Volume 83.3 fL (80-100); Mean Platelet Volume 10.4 fL (7.4-10.4); Platelet Count 193 K/uL (130-400); RDW Coefficient of Variation 17.8 % (11.5-14.5); RDW Standard Deviation 54.2 fL (36.4-46.3); Red Blood Count 4.19 M/uL (4.2-5.4); White Blood Count 6.39 K/uL (4.8-10.8)
[2019-07-07 06:30] LABS: INR 1.2 (0.9-1.1); Partial Thromboplastin Ratio 1.9; Partial Thromboplastin Time 51.5 Seconds (21.0-31.0); Prothrombin Time 11.9 Seconds (9.0-12.0)
[2019-07-07 06:39] LABS: BUN Creatinine Ratio 22.2 (10-20); Calcium 8.6 mg/dl (8.5-10.1); Creatinine Clr Calc Pharmacy 132.7 ml/min; Est GFR (African American) 142.7; Est GFR (Non-African American) 123.2; Potassium 3.4 mmol/L (3.5-5.1)
[2019-07-07] MEDS: ACETAMINOPHEN 325 MG TAB PO PRN (07:20)
[2019-07-07] MEDS: INSULIN ASPART 100 UNITS/ML 3 ML PEN SC SCH ×4 (07:52→22:10)
[2019-07-07] MEDS: lamoTRIgine 100 MG TAB PO SCH (08:00)
[2019-07-07] MEDS: LIDOCAINE 5% 1 PATCH TD SCH (08:00)
[2019-07-07] MEDS: FLUOXETINE HCL 20 MG CAP PO SCH (08:01)
[2019-07-07] MEDS ORDERED: POTASSIUM CHLORIDE 10 MEQ TABCR PO STA (08:51)
[2019-07-07] MEDS: Heparin Adult STANDARD Wt-Based Dextrose 5% 25,000 units/500 mL IV SCH (09:12)
--- NOTE | 2019-07-07 11:34 | Pharmacy Report ---
Pharmacy Glycemic Short Note 2 - Date of Service July 07, 2019 - Glycemic Short BSG Results (Last 24 hours): 07/06/19 07/06/19 07/06/19 11:17 17:08 20:15 Glucose POC Glucose 254 H 221 H 138 H 07/07/19 07/07/19 05:27 07:15 Glucose 128 H POC Glucose 133 H OUTPATIENT ANTIDIABETIC REGIMEN: * Basaglar 40 units qHS * Lispro 15 units with meals * Eliazar ASSESSMENT: 07/07 * Ms. Berkowitz ended up inadvertently receiving 80 units of basal yesterday as the qHS order was started last night; however, it appears that she needed close to this amount as her fasting is in range and her lunch BSG remains elevated * Total insulin received on 07/05 - 95 units * Total insulin received on 07/06 - 121 units * Fasting today = 128 mg/dL * Will adjust regimen to a estimated total daily dose of ~110 units PLAN FOR INPATIENT GLYCEMIC CONTROL: * Hold outpatient oral diabetes medications * Basal insulin * Lantus 60 units qHS * Bolus insulin * NovoLog per scale ACHS or Q6hrs while NPO * Goal Range: Low 110 mg/dL - High 140 mg/dL * Correction Factor: 20 mg/dL/unit * Nutritional / Prandial insulin per carb ratio of 1 unit per 5 grams CHO consumed
[2019-07-07] MEDS ORDERED: LORATADINE 10 MG TAB PO ONE (12:12)
[2019-07-07] MEDS ORDERED: LORATADINE 10 MG TAB PO PRN (12:15)
[2019-07-07] MEDS: ACETAMINOPHEN 1,000 MG/100 ML VIAL IV PRN (13:58)
[2019-07-07] MEDS: KETOROLAC TROMETHAMINE 10 MG TABLET PO PRN ×2 (16:11→22:06)
[2019-07-07] MEDS: WARFARIN SOD 7.5 MG TAB PO SCH (16:11)
--- NOTE | 2019-07-07 17:39 | Hospitalist Progress Note ---
Date of Service July 07, 2019 Assessment & Plan (1) Bilateral pulmonary embolism: (2) DVT, bilateral lower limbs: (3) Antiphospholipid antibody syndrome: Patient is a 28 yr female with H/O antiphospholipid antibody syndrome, recurrent DVTs/PEs, DM II, bipolar disorder, depression, morbid obesity who presents secondary to exertional chest pain and right leg pain x1 day. Acute pulmonary emboli B/L R LE DVT H/O antiphospholipid syndrome, recurrent DVT, PEs --CTA:high suspicious for segmental and subsegmental acute pulmonary emboli in bilateral lower lobes. --Venous Doppler: Bilateral DVT more extensive on the right. Suspected acute DVT on the right and large chronic appearing DVT on the left. Negative troponin, negative hCG Was on Eliquis 10 mg p.o. twice daily Given history of antiphospholipid antibody syndrome, patient not an ideal candidate for Eliquis Appreciate input from Continue heparin, Coumadin Monitor PT/INR: 1.2 Continue 7.5 mg Coumadin today Needs follow-up with Coumadin clinic upon discharge (4) Hypokalemia: Replace and monitor electrolytes as needed (5) Diabetes mellitus type 2 in obese: uncontrolled DM II Last A1C 10.3 on 06/21 On Basaglar, Lispro, Janumet as outpt Hold outpt regimen Continue lantus/novolog per protocol (6) Obesity: BMI:38.1 encourage lifestyle modifications DVT Px: on Heparin, coumadin Code Status Full Code Disposition: Expected discharge home in stable Patient cannot afford Lovenox due to insurance issues Follow up: PCP Stephany Castillo PA-C upon discharge Subjective Patient is seen and examined at bedside Complains of right ankle pain Chest pain resolved No bleeding issues Denies any shortness of breath Offers no other complaints Review of Systems Review of Systems: All systems reviewed & are unremarkable except as noted in HPI & below Physical Exam Physical Exam: Physical Exam: Vitals signs as noted above General Appearance:Obese, no apparent distress Head: normocephalic, Atraumatic Eyes: normal inspection, EOMI Neck: supple, Trachea midline Respiratory/Chest: Normal breath sounds, CTA Cardiovascular: S1, S2, No murmur Abdomen/GI:Soft, Non tender, Bowel sounds present Extremities/Musculoskelatal:normal inspection, Right leg tender Neurologic/Psych:AAOX3, grossly no focal neurological deficits Skin: normal color, warm Results & Data Vital Signs (Past 12 Hours) Vital Signs Temp Pulse Pulse Resp BP Pulse Ox 07/07/19 15:27 36.6 C 78 18 108/70 96 07/07/19 11:53 36.6 C 78 16 117/75 98 07/07/19 07:15 76 07/07/19 06:47 36.5 C 70 19 98/63 L 96 Laboratory Results Short CBC 07/07/19 Range/Units 05:27 WBC 6.39 (4.8-10.8) K/uL Hgb 11.7 L (12.0-16.0) g/dL Hct 34.9 L (37-47) % Plt Count 193 (130-400) K/uL BMP 07/07/19 05:27 Sodium 138 Potassium 3.4 L Chloride 105 Carbon Dioxide 26 BUN 14 Creatinine 0.64 Glucose 128 H Calcium 8.6 (1) DVT, bilateral lower limbs Affected thrombotic vein of extremity: unspecified vein of extremity Chronicity: unspecified Qualified Code(s): I82.403 - Acute embolism and thrombosis of unspecified deep veins of lower extremity, bilateral
[2019-07-07] MEDS ORDERED: INSULIN GLARGINE SOLOSTAR 100 UNITS/ML 3 ML PEN SC SCH (21:00)
[2019-07-07] MEDS: TRAZODONE HCL 100 MG TAB PO PRN (22:52)
[2019-07-08 07:02] LABS: INR 1.4 (0.9-1.1); Partial Thromboplastin Ratio 2.2
[2019-07-08 07:22] LABS: BUN Creatinine Ratio 26.3 (10-20); Calcium 8.6 mg/dl (8.5-10.1); Creatinine Clr Calc Pharmacy 135.6 ml/min; Est GFR (African American) 143.5; Est GFR (Non-African American) 123.8; Potassium 3.7 mmol/L (3.5-5.1)
[2019-07-08] MEDS: KETOROLAC TROMETHAMINE 10 MG TABLET PO PRN ×3 (07:45→22:28)
[2019-07-08] MEDS: FLUOXETINE HCL 20 MG CAP PO SCH (07:45)
[2019-07-08] MEDS: LIDOCAINE 5% 1 PATCH TD SCH (07:45)
[2019-07-08] MEDS: lamoTRIgine 100 MG TAB PO SCH (07:45)
[2019-07-08] MEDS: INSULIN ASPART 100 UNITS/ML 3 ML PEN SC SCH ×4 (07:49→21:26)
[2019-07-08] MEDS: Heparin Adult STANDARD Wt-Based Dextrose 5% 25,000 units/500 mL IV SCH (08:34)
--- NOTE | 2019-07-08 10:55 | Pharmacy Report ---
Pharmacy Glycemic Short Note 2 - Date of Service July 08, 2019 - Glycemic Short BSG Results (Last 24 hours): 07/07/19 07/07/19 07/07/19 11:27 16:20 20:31 Glucose POC Glucose 208 H 170 H 243 H 07/08/19 07/08/19 05:54 07:08 Glucose 144 H POC Glucose 162 H OUTPATIENT ANTIDIABETIC REGIMEN: * Basaglar 40 units qHS * Lispro per sliding scale with meals (ave of 15 units with each meal) * Janumet ASSESSMENT: 07/08 * Ms. Berkowitz received 60 units of basal and 41 units of bolus insulin yesterday * Fasting = 162 mg/dL; this is increased slightly from yesterday so will provide a scaled dose for tonight in case BSGs remain elevated * Postprandials elevated; will tighten CF/CR further * Est TDD ~110-120 units * Spoke with patient on the phone re: outpatient glycemic management. She confirmed that she does not count carbs and only uses a sliding scale for her bolus insulin. I noted that her requirements in here are quite higher (although she does not have the Janumet on board) so she may need to increase her insulin doses on discharge. 07/07 * Ms. Berkowitz ended up inadvertently receiving 80 units of basal yesterday as the qHS order was started last night; however, it appears that she needed close to this amount as her fasting is in range and her lunch BSG remains elevated * Total insulin received on 07/05 - 95 units * Total insulin received on 07/06 - 121 units * Fasting today = 128 mg/dL * Will adjust regimen to a estimated total daily dose of ~110 units PLAN FOR INPATIENT GLYCEMIC CONTROL: * Continue to hold outpatient oral diabetes medications * Basal insulin - add scale to provide increased dose tonight if BSGs remain elevated * Lantus qHS per the following scale: * 60 units for BSG 180 or lower * 70 units for BSG > 180 * Bolus insulin * NovoLog per scale ACHS or Q6hrs while NPO * Goal Range: Low 110 mg/dL - High 140 mg/dL * Correction Factor: 15 mg/dL/unit * Nutritional / Prandial insulin per carb ratio of 1 unit per 4 grams CHO consumed Discharge Recommendations: A1c = 10.3 % on 06/21/19 Goal A1c = < 7 % based on age and comorbidities A reasonable A1C goal for many non- adults is A1c less than 7% Recommendations for Patient A1c greater than 10% with a goal of <7% * A1c is greater than or equal to 10% -> patient already on triple therapy but this is not maximized * Consider increasing Basaglar to 50 units qHS * Consider adding mealtime insulin coverage in addition to her sliding scale. Dose will depend on patient being willing to carb count or not. May need to start with a set dose of 15 units with meals IN ADDITION TO a sliding scale.
[2019-07-08] MEDS: WARFARIN SOD 7.5 MG TAB PO SCH (14:57)
--- NOTE | 2019-07-08 18:36 | Hospitalist Progress Note ---
Date of Service July 08, 2019 Assessment & Plan (1) Bilateral pulmonary embolism: (2) DVT, bilateral lower limbs: (3) Antiphospholipid antibody syndrome: Patient is a 28 yr female with H/O antiphospholipid antibody syndrome, recurrent DVTs/PEs, DM II, bipolar disorder, depression, morbid obesity who presents secondary to exertional chest pain and right leg pain x1 day. Acute pulmonary emboli B/L R LE DVT H/O antiphospholipid syndrome, recurrent DVT, PEs --CTA:high suspicious for segmental and subsegmental acute pulmonary emboli in bilateral lower lobes. --Venous Doppler: Bilateral DVT more extensive on the right. Suspected acute DVT on the right and large chronic appearing DVT on the left. Negative troponin, negative hCG Was on Eliquis 10 mg p.o. twice daily Given history of antiphospholipid antibody syndrome, patient not an ideal candidate for Eliquis Appreciate input from Continue heparin, Coumadin Monitor PT/INR: 1.2>>>1.4 Continue 7.5 mg Coumadin Needs follow-up with Coumadin clinic upon discharge No bleeding issues (4) Hypokalemia: Resolved Replace and monitor electrolytes as needed (5) Diabetes mellitus type 2 in obese: uncontrolled DM II Last A1C 10.3 on 06/21 On Basaglar, Lispro, Janumet as outpt Hold outpt regimen Continue lantus/novolog per protocol (6) Obesity: BMI:38.1 encourage lifestyle modifications DVT Px: on Heparin, coumadin Code Status Full Code Disposition: Expected discharge home when INR is therapeutic Patient cannot afford Lovenox due to insurance issues Follow up: PCP Stephany Castillo PA-C upon discharge Subjective Patient is seen and examined at bedside Right ankle pain improved No bleeding issues Denies any chest pain, SOB, dizziness No other complaints Review of Systems Review of Systems: All systems reviewed & are unremarkable except as noted in HPI & below Physical Exam Physical Exam: Physical Exam: Vitals signs as noted above General Appearance:Obese, no apparent distress Head: normocephalic, Atraumatic Eyes: normal inspection, EOMI Neck: supple, Trachea midline Respiratory/Chest: Normal breath sounds, CTA Cardiovascular: S1, S2, No murmur Abdomen/GI:Soft, Non tender, Bowel sounds present Extremities/Musculoskelatal:normal inspection, Right leg tender Neurologic/Psych:AAOX3, grossly no focal neurological deficits Skin: normal color, warm Results & Data Vital Signs (Past 12 Hours) Vital Signs Temp Pulse Resp BP BP Pulse Ox 07/08/19 15:20 37.0 C 74 17 106/65 97 07/08/19 11:32 37.3 C 80 16 122/79 99 07/08/19 07:11 37.0 C 68 17 95/62 L 98 Laboratory Results [facility] 07/08/19 05:54 Sodium 139 Potassium 3.7 Chloride 106 Carbon Dioxide 25 BUN 17 Creatinine 0.63 Glucose 144 H Calcium 8.6 (1) DVT, bilateral lower limbs Affected thrombotic vein of extremity: unspecified vein of extremity Chronicity: unspecified Qualified Code(s): I82.403 - Acute embolism and thrombosis of unspecified deep veins of lower extremity, bilateral
[2019-07-08] MEDS ORDERED: INSULIN GLARGINE SOLOSTAR 100 UNITS/ML 3 ML PEN SC SCH (21:00)
[2019-07-08] MEDS: TRAZODONE HCL 100 MG TAB PO PRN (22:29)
[2019-07-09 06:16] LABS: Hematocrit (blood only) 33.2 % (37-47); Hemoglobin 11.2 g/dL (12.0-16.0); Mean Corpuscular Hemoglobin 28.1 pg (25-34); Mean Corpuscular Hgb Conc 33.7 g/dL (32-36); Mean Corpuscular Volume 83.4 fL (80-100); Mean Platelet Volume 10.3 fL (7.4-10.4); Platelet Count 200 K/uL (130-400); RDW Coefficient of Variation 17.7 % (11.5-14.5); RDW Standard Deviation 53.9 fL (36.4-46.3); Red Blood Count 3.98 M/uL (4.2-5.4); White Blood Count 6.99 K/uL (4.8-10.8)
[2019-07-09 06:47] LABS: BUN Creatinine Ratio 21.3 (10-20); Calcium 8.9 mg/dl (8.5-10.1); Creatinine Clr Calc Pharmacy 104.2 ml/min; Est GFR (African American) 114.5; Est GFR (Non-African American) 98.8; Potassium 3.5 mmol/L (3.5-5.1)
[2019-07-09 06:48] LABS: Partial Thromboplastin Ratio 2.3
[2019-07-09 06:56] LABS: Partial Thromboplastin Time 62.4 Seconds (21.0-31.0)
[2019-07-09] MEDS: Heparin Adult STANDARD Wt-Based Dextrose 5% 25,000 units/500 mL IV SCH (07:28)
[2019-07-09] MEDS: INSULIN ASPART 100 UNITS/ML 3 ML PEN SC SCH ×4 (08:22→21:28)
[2019-07-09] MEDS: LIDOCAINE 5% 1 PATCH TD SCH (08:24)
[2019-07-09] MEDS: FLUOXETINE HCL 20 MG CAP PO SCH (08:24)
[2019-07-09] MEDS: lamoTRIgine 100 MG TAB PO SCH (08:25)
[2019-07-09] MEDS: KETOROLAC TROMETHAMINE 10 MG TABLET PO PRN (08:26)
[2019-07-09 08:32] LABS: INR 1.6 (0.9-1.1); Prothrombin Time 15.8 Seconds (9.0-12.0)
[2019-07-09] MEDS: WARFARIN SOD 7.5 MG TAB PO SCH (16:56)
--- NOTE | 2019-07-09 18:17 | Hospitalist Progress Note ---
Date of Service July 09, 2019 Assessment & Plan (1) Bilateral pulmonary embolism: (2) DVT, bilateral lower limbs: (3) Antiphospholipid antibody syndrome: Patient is a 28 yr female with H/O antiphospholipid antibody syndrome, recurrent DVTs/PEs, DM II, bipolar disorder, depression, morbid obesity who presents secondary to exertional chest pain and right leg pain x1 day. Acute pulmonary emboli B/L R LE DVT H/O antiphospholipid syndrome, recurrent DVT, PEs --CTA:high suspicious for segmental and subsegmental acute pulmonary emboli in bilateral lower lobes. --Venous Doppler: Bilateral DVT more extensive on the right. Suspected acute DVT on the right and large chronic appearing DVT on the left. Negative troponin, negative hCG Was on Eliquis 10 mg p.o. twice daily Given history of antiphospholipid antibody syndrome, patient not an ideal candidate for Eliquis Appreciate input from Continue heparin, Coumadin Monitor PT/INR: 1.2>>>1.4>>1.6 Continue 7.5 mg Coumadin Needs follow-up with Coumadin clinic upon discharge No bleeding issues Continue current management (4) Hypokalemia: Resolved Replace and monitor electrolytes as needed (5) Diabetes mellitus type 2 in obese: uncontrolled DM II Last A1C 10.3 on 06/21 On Basaglar, Lispro, Janumet as outpt Hold outpt regimen Continue lantus/novolog per protocol (6) Obesity: BMI:38.1 encourage lifestyle modifications DVT Px: on Heparin, coumadin Code Status Full Code Disposition: Expected discharge home when INR is therapeutic Patient cannot afford Lovenox due to insurance issues Follow up: PCP Stephany Castillo PA-C upon discharge Subjective Patient is seen and examined at bedside Right ankle pain is controlled No bleeding issues No new complaints Denies any chest pain, SOB, dizziness INR still subtherapeutic Review of Systems Review of Systems: All systems reviewed & are unremarkable except as noted in HPI & below Physical Exam Physical Exam: Physical Exam: Vitals signs as noted above General Appearance:Obese, no apparent distress Head: normocephalic, Atraumatic Eyes: normal inspection, EOMI Neck: supple, Trachea midline Respiratory/Chest: Normal breath sounds, CTA Cardiovascular: S1, S2, No murmur Abdomen/GI:Soft, Non tender, Bowel sounds present Extremities/Musculoskelatal:normal inspection, Right leg tender Neurologic/Psych:AAOX3, grossly no focal neurological deficits Skin: normal color, warm Results & Data Vital Signs (Past 12 Hours) Vital Signs Temp Pulse Pulse Resp BP BP Pulse Ox 07/09/19 15:46 36.6 C 76 18 112/76 97 07/09/19 11:02 36.9 C 75 18 115/77 97 07/09/19 07:44 78 07/09/19 07:06 36.9 C 76 20 99/63 L 98 Laboratory Results Short CBC 07/09/19 Range/Units 05:24 WBC 6.99 (4.8-10.8) K/uL Hgb 11.2 L (12.0-16.0) g/dL Hct 33.2 L (37-47) % Plt Count 200 (130-400) K/uL BMP 07/09/19 05:24 Sodium 140 Potassium 3.5 Chloride 108 H Carbon Dioxide 23 BUN 18 Creatinine 0.82 Glucose 111 H Calcium 8.9 (1) DVT, bilateral lower limbs Affected thrombotic vein of extremity: unspecified vein of extremity Chronicity: unspecified Qualified Code(s): I82.403 - Acute embolism and thrombosis of unspecified deep veins of lower extremity, bilateral
[2019-07-09] MEDS: INSULIN GLARGINE SOLOSTAR 100 UNITS/ML 3 ML PEN SC SCH (21:29)
[2019-07-09] MEDS: TRAZODONE HCL 100 MG TAB PO PRN (22:14)
[2019-07-10 06:21] LABS: Hematocrit (blood only) 34.9 % (37-47)
[2019-07-10 06:37] LABS: INR 1.8 (0.9-1.1); Prothrombin Time 18.1 Seconds (9.0-12.0)
[2019-07-10 07:16] LABS: Partial Thromboplastin Ratio 2.2
[2019-07-10 07:19] LABS: Partial Thromboplastin Time 59.5 Seconds (21.0-31.0)
[2019-07-10] MEDS: Heparin Adult STANDARD Wt-Based Dextrose 5% 25,000 units/500 mL IV SCH (07:46)
[2019-07-10] MEDS: FLUOXETINE HCL 20 MG CAP PO SCH (09:52)
[2019-07-10] MEDS: INSULIN ASPART 100 UNITS/ML 3 ML PEN SC SCH ×4 (09:53→20:34)
[2019-07-10] MEDS: LIDOCAINE 5% 1 PATCH TD SCH (09:53)
[2019-07-10] MEDS: lamoTRIgine 100 MG TAB PO SCH (09:53)
--- NOTE | 2019-07-10 14:38 | Pharmacy Report ---
Pharmacy Glycemic Short Note 2 - Date of Service July 10, 2019 - Glycemic Short BSG Results (Last 24 hours): 07/09/19 07/09/19 07/10/19 16:21 20:39 11:10 POC Glucose 170 H 232 H 143 H OUTPATIENT ANTIDIABETIC REGIMEN: * Basaglar 40 units qHS * Lispro per sliding scale with meals (ave of 15 units with each meal) * Janumet ASSESSMENT: * Pt has been receiving an average of ~110-125 units of insulin per day with near-adequate control * AM fasting BSG not taken this morning by mistake - HS BSG was used from last night by mistake but pre-lunch BSG was in range. * Regimen is currently weighted slightly more on the basal side- may need to decrease basal to 60-65 units based on AM fasting BSG tomorrow * Heparin infusion remains runnings at ~23ml/hr. Insulin regimen may need reduced once this is stopped since it is mixed in dextrose. * CF/CR are c/w current TDD of 125 units/day --> no changes needed PLAN FOR INPATIENT GLYCEMIC CONTROL: No changes needed at this time * Continue to hold outpatient oral diabetes medications * Basal insulin * Lantus 70 units SQ HS * Bolus insulin * NovoLog per scale ACHS or Q6hrs while NPO * Goal Range: Low 110 mg/dL - High 140 mg/dL * Correction Factor: 15 mg/dL/unit * Nutritional / Prandial insulin per carb ratio of 1 unit per 4 grams CHO consumed Discharge Recommendations: A1c = 10.3 % on 06/21/19 Goal A1c = < 7 % based on age and comorbidities A reasonable A1C goal for many non- adults is A1c less than 7% Recommendations for Patient A1c greater than 10% with a goal of <7% * A1c is greater than or equal to 10% -> patient already on triple therapy but this is not maximized * Continue Janumet as Rx * Consider increasing Basaglar to 50 units qHS * Consider adding mealtime insulin coverage in addition to her sliding scale. Dose will depend on patient being willing to carb count or not. May need to start with a set dose of 15 units with meals IN ADDITION TO a sliding scale.
[2019-07-10] MEDS: WARFARIN SOD 7.5 MG TAB PO SCH (17:12)
--- NOTE | 2019-07-10 17:20 | Hospitalist Progress Note ---
Date of Service July 10, 2019 Assessment & Plan (1) Bilateral pulmonary embolism: (2) DVT, bilateral lower limbs: (3) Antiphospholipid antibody syndrome: Patient is a 28 yr female with H/O antiphospholipid antibody syndrome, recurrent DVTs/PEs, DM II, bipolar disorder, depression, morbid obesity who presents secondary to exertional chest pain and right leg pain x1 day. Acute pulmonary emboli B/L R LE DVT H/O antiphospholipid syndrome, recurrent DVT, PEs --CTA:high suspicious for segmental and subsegmental acute pulmonary emboli in bilateral lower lobes. --Venous Doppler: Bilateral DVT more extensive on the right. Suspected acute DVT on the right and large chronic appearing DVT on the left. Negative troponin, negative hCG Was on Eliquis 10 mg p.o. twice daily Given history of antiphospholipid antibody syndrome, patient not an ideal candidate for Eliquis Appreciate input from Continue heparin, Coumadin Monitor PT/INR: 1.2>>>1.4>>1.6>>1.8 Continue 7.5 mg Coumadin Needs follow-up with Coumadin clinic upon discharge No bleeding issues Continue current management Plan to discharge when INR is therapeutic (4) Hypokalemia: Resolved Replace and monitor electrolytes as needed (5) Diabetes mellitus type 2 in obese: uncontrolled DM II Last A1C 10.3 on 06/21 On Basaglar, Lispro, Janumet as outpt Hold outpt regimen Continue lantus/novolog per protocol (6) Obesity: BMI:38.1 encourage lifestyle modifications DVT Px: on Heparin, coumadin Code Status Full Code Disposition: Expected discharge home when INR is therapeutic --likely tomorrow Patient cannot afford Lovenox due to insurance issues Follow up: PCP Stephany Castillo PA-C upon discharge Subjective Patient is seen and examined at bedside No new complaints Right ankle pain improved No bleeding issues Denies any chest pain, SOB, dizziness INR still subtherapeutic Review of Systems Review of Systems: All systems reviewed & are unremarkable except as noted in HPI & below Physical Exam Physical Exam: Physical Exam: Vitals signs as noted above General Appearance:Obese, no apparent distress Head: normocephalic, Atraumatic Eyes: normal inspection, EOMI Neck: supple, Trachea midline Respiratory/Chest: Normal breath sounds, CTA Cardiovascular: S1, S2, No murmur Abdomen/GI:Soft, Non tender, Bowel sounds present Extremities/Musculoskelatal:normal inspection, Right leg tender Neurologic/Psych:AAOX3, grossly no focal neurological deficits Skin: normal color, warm Results & Data Vital Signs (Past 12 Hours) Vital Signs Temp Pulse Pulse Pulse Resp BP Pulse Ox 07/10/19 15:27 37.2 C 74 20 104/62 98 07/10/19 11:18 37.0 C 78 19 104/65 97 07/10/19 08:00 79 07/10/19 07:03 36.7 C 92 H 18 92/58 L 96 Laboratory Results Short CBC 07/10/19 Range/Units 05:43 Hgb 12.0 (12.0-16.0) g/dL Hct 34.9 L (37-47) % (1) DVT, bilateral lower limbs Affected thrombotic vein of extremity: unspecified vein of extremity Chronicity: unspecified Qualified Code(s): I82.403 - Acute embolism and thrombosis of unspecified deep veins of lower extremity, bilateral
[2019-07-10] MEDS: ACETAMINOPHEN 1,000 MG/100 ML VIAL IV PRN (19:23)
[2019-07-10] MEDS: INSULIN GLARGINE SOLOSTAR 100 UNITS/ML 3 ML PEN SC SCH (20:36)
[2019-07-10] MEDS: TRAZODONE HCL 100 MG TAB PO PRN (21:48)
[2019-07-11] MEDS: Heparin Adult STANDARD Wt-Based Dextrose 5% 25,000 units/500 mL IV SCH (05:16)
[2019-07-11 05:58] LABS: Hematocrit (blood only) 34.8 % (37-47); Hemoglobin 11.6 g/dL (12.0-16.0); Mean Corpuscular Hemoglobin 27.6 pg (25-34); Mean Corpuscular Hgb Conc 33.3 g/dL (32-36); Mean Corpuscular Volume 82.9 fL (80-100); Mean Platelet Volume 9.8 fL (7.4-10.4); Platelet Count 205 K/uL (130-400); RDW Coefficient of Variation 17.6 % (11.5-14.5); RDW Standard Deviation 53.3 fL (36.4-46.3); White Blood Count 6.83 K/uL (4.8-10.8)
[2019-07-11 06:15] LABS: INR 1.7 (0.9-1.1); Partial Thromboplastin Ratio 2.4
[2019-07-11 06:16] LABS: Partial Thromboplastin Time 65.1 Seconds (21.0-31.0)
[2019-07-11 06:29] LABS: BUN Creatinine Ratio 19.2 (10-20); Calcium 8.8 mg/dl (8.5-10.1); Creatinine Clr Calc Pharmacy 123.7 ml/min; Est GFR (African American) 139.2; Est GFR (Non-African American) 120.1; Potassium 3.5 mmol/L (3.5-5.1)
[2019-07-11] MEDS: INSULIN ASPART 100 UNITS/ML 3 ML PEN SC SCH ×4 (08:11→21:12)
[2019-07-11] MEDS: lamoTRIgine 100 MG TAB PO SCH (08:12)
[2019-07-11] MEDS: LIDOCAINE 5% 1 PATCH TD SCH (08:12)
[2019-07-11] MEDS: FLUOXETINE HCL 20 MG CAP PO SCH (08:12)
--- NOTE | 2019-07-11 10:21 | Pharmacy Report ---
Pharmacy Glycemic Short Note 2 - Date of Service July 11, 2019 - Glycemic Short BSG Results (Last 24 hours): 07/10/19 07/10/19 07/10/19 11:10 16:24 20:18 Glucose POC Glucose 143 H 121 H 147 H 07/11/19 07/11/19 07/11/19 05:28 05:43 07:08 Glucose 95 POC Glucose 102 H 112 H OUTPATIENT ANTIDIABETIC REGIMEN: * Basaglar 40 units qHS * Lispro per sliding scale with meals (ave of 15 units with each meal) * Janumet ASSESSMENT: 07/11: * Patient received total of 122 units of insulin yesterday, of which 70 were basal * Fasting trending down more this am at 95 mg/dL - will titrate back on basal to 60 units tonight * BSGs well controlled throughout the day yesterday, continue same CF/CR PLAN FOR INPATIENT GLYCEMIC CONTROL: No changes needed at this time * Continue to hold outpatient oral diabetes medications * Basal insulin - decrease * Lantus 60 units SQ HS * Bolus insulin - no change * NovoLog per scale ACHS or Q6hrs while NPO * Goal Range: Low 110 mg/dL - High 140 mg/dL * Correction Factor: 15 mg/dL/unit * Nutritional / Prandial insulin per carb ratio of 1 unit per 4 grams CHO consumed
[2019-07-11] MEDS: WARFARIN SOD 10 MG TAB PO SCH (15:24)
[2019-07-11] MEDS ORDERED: PNEUMOCOCCAL POLYSACCHARIDES 25 MCG/0.5 ML VIAL/SYR IM ONE (15:45)
[2019-07-11] MEDS ORDERED: PNEUMOCOCCAL ADMINISTRATION CHARGE ONE (15:45)
--- NOTE | 2019-07-11 16:21 | Hospitalist Progress Note ---
Date of Service July 11, 2019 Assessment & Plan (1) Bilateral pulmonary embolism: (2) DVT, bilateral lower limbs: (3) Antiphospholipid antibody syndrome: Patient is a 28 yr female with H/O antiphospholipid antibody syndrome, recurrent DVTs/PEs, DM II, bipolar disorder, depression, morbid obesity who presents secondary to exertional chest pain and right leg pain x1 day. Acute pulmonary emboli B/L R LE DVT H/O antiphospholipid syndrome, recurrent DVT, PEs --CTA:high suspicious for segmental and subsegmental acute pulmonary emboli in bilateral lower lobes. --Venous Doppler: Bilateral DVT more extensive on the right. Suspected acute DVT on the right and large chronic appearing DVT on the left. Negative troponin, negative hCG Was on Eliquis 10 mg p.o. twice daily Given history of antiphospholipid antibody syndrome, patient not an ideal candidate for Eliquis Appreciate input from Continue heparin, Coumadin Monitor PT/INR: 1.2>>>1.4>>1.6>>1.8 Continue 7.5 mg Coumadin 2 (4) Hypokalemia: Resolved Replace and monitor electrolytes as needed (5) Diabetes mellitus type 2 in obese: uncontrolled DM II Last A1C 10.3 on 06/21 On Basaglar, Lispro, Janumet as outpt Hold outpt regimen Continue lantus/novolog per protocol (6) Obesity: BMI:38.1 encourage lifestyle modifications DVT Px: on iv Heparin, coumadin Code Status Full Code Disposition: Expected discharge home when INR is therapeutic -- Patient cannot afford Lovenox due to insurance issues Follow up: PCP Stephany Castillo PA-C upon discharge Subjective pt is very eager to be discharged form hospital disappointed that her INR is still below 2 ( 1.7 today ) no complain of chest pain or SOB , no hypoxia , no complain of leg pain no leg swelling noted Physical Exam Physical Exam: GENERAL: No sign of distress, HEENT: Sclera nonicteric, pink-purple bilateral equal reactive to light extraocular muscle intact Normal oral mucosa, neck: No JVD, no thyromegaly, trachea midline Lungs: Clear to auscultate, no wheeze or rales Cardiovascular: Regular S1 and S2, no murmur or gallop, no JVD, no lower extremity edema Abdomen: Soft, nontender, bowel sounds active, no hepatosplenomegaly Extremities: No rash or deformity, normal joint, Neuro: No focal neurological deficit, no dysarthria, no facial droop Psych: Alert awake oriented x3: Euthymic Skin: No rash LYMPH NODES: No cervical lymphadenopathy Results & Data Vital Signs (Past 12 Hours) Vital Signs Temp Pulse Pulse Resp BP BP Pulse Ox 07/11/19 15:30 90 07/11/19 15:03 36.5 C 83 16 105/68 96 07/11/19 10:56 36.9 C 73 17 100/64 97 07/11/19 07:29 36.9 C 87 18 106/70 97 (1) DVT, bilateral lower limbs Affected thrombotic vein of extremity: unspecified vein of extremity Chronicity: unspecified Qualified Code(s): I82.403 - Acute embolism and thrombosis of unspecified deep veins of lower extremity, bilateral
[2019-07-11] MEDS: INSULIN GLARGINE SOLOSTAR 100 UNITS/ML 3 ML PEN SC SCH (21:11)
[2019-07-11] MEDS: TRAZODONE HCL 100 MG TAB PO PRN (22:29)
[2019-07-12] MEDS: Heparin Adult STANDARD Wt-Based Dextrose 5% 25,000 units/500 mL IV SCH ×2 (01:03→23:44)
[2019-07-12 06:15] LABS: INR 1.9 (0.9-1.1); Partial Thromboplastin Ratio 2.5; Prothrombin Time 18.8 Seconds (9.0-12.0)
[2019-07-12 06:20] LABS: Partial Thromboplastin Time 68.3 Seconds (21.0-31.0)
[2019-07-12] MEDS: INSULIN ASPART 100 UNITS/ML 3 ML PEN SC SCH ×4 (09:55→20:55)
[2019-07-12] MEDS: FLUOXETINE HCL 20 MG CAP PO SCH (09:56)
[2019-07-12] MEDS: lamoTRIgine 100 MG TAB PO SCH (09:56)
[2019-07-12] MEDS: LIDOCAINE 5% 1 PATCH TD SCH (09:57)
--- NOTE | 2019-07-12 10:34 | Pharmacy Report ---
Pharmacy Glycemic Short Note 2 - Date of Service July 12, 2019 - Glycemic Short BSG Results (Last 24 hours): 07/11/19 07/11/19 07/11/19 11:18 16:17 20:21 POC Glucose 116 H 154 H 179 H 07/12/19 07:40 POC Glucose 185 H OUTPATIENT ANTIDIABETIC REGIMEN: * Basaglar 40 units qHS * Lispro per sliding scale with meals (ave of 15 units with each meal) * Janumet ASSESSMENT: * 28yo T2DM female with sub-optimal degree of outpatient control per recent A1c of 10.3% * Pt has been receiving stressed outpatient SQ basal bolus insulin regimen d/t acute illness and continuous dextrose administration {heparin drip} * Have been decreasing basal insulin dosing over the past 2 days for AM fasting BSG trending downwards. Current dosing is at Lantus 60 units SQ HS. * AM fasting BSG is above goal range this morning at 185 mg/dl. However, anticipate heparin infusion {mixed in dextrose} to dc in the next 24hrs as INR = 1.9 and bridging with warfarin. * Fasting trending down more this am at 95 mg/dL - will titrate back on basal to 60 units tonight * BSGs well controlled throughout the day yesterday, continue same CF/CR PLAN FOR INPATIENT GLYCEMIC CONTROL: No changes needed at this time * Continue to hold outpatient oral diabetes medications * Basal insulin - no change * Lantus 60 units SQ HS * Bolus insulin - no change * NovoLog per scale ACHS or Q6hrs while NPO * Goal Range: Low 110 mg/dL - High 140 mg/dL * Correction Factor: 15 mg/dL/unit * Nutritional / Prandial insulin per carb ratio of 1 unit per 4 grams CHO consumed
[2019-07-12 12:44] LABS: Partial Thromboplastin Ratio 2.4
[2019-07-12 13:00] LABS: Partial Thromboplastin Time 64.2 Seconds (21.0-31.0)
[2019-07-12 14:24] LABS: INR 1.9 (0.9-1.1)
[2019-07-12] MEDS: WARFARIN SOD 10 MG TAB PO SCH (16:51)
--- NOTE | 2019-07-12 18:14 | Hospitalist Progress Note ---
Date of Service July 12, 2019 Assessment & Plan (1) Bilateral pulmonary embolism: Recurrent DVT and PE secondary to under lying hyper coagulable state, antiphospholipid antibody syndrome, Patient should be treated with either Coumadin, or low molecular weight Lovenox only Consult NOAC (2) DVT, bilateral lower limbs: (3) Antiphospholipid antibody syndrome: Patient is a 28 yr female with H/O antiphospholipid antibody syndrome, recurrent DVTs/PEs, DM II, bipolar disorder, depression, morbid obesity who presents secondary to exertional chest pain and right leg pain x1 day. Acute pulmonary emboli B/L R LE DVT H/O antiphospholipid syndrome, recurrent DVT, PEs --CTA:high suspicious for segmental and subsegmental acute pulmonary emboli in bilateral lower lobes. --Venous Doppler: Bilateral DVT more extensive on the right. Suspected acute DVT on the right and large chronic appearing DVT on the left. Negative troponin, negative hCG Was on Eliquis 10 mg p.o. twice daily Given history of antiphospholipid antibody syndrome, patient not an ideal candidate for Eliquis Appreciate input from Continue heparin, Coumadin Monitor PT/INR: 1.2>>>1.4>>1.6>>1.8 Continue 7.5 mg Coumadin 2 (4) Hypokalemia: Resolved Replace and monitor electrolytes as needed (5) Diabetes mellitus type 2 in obese: uncontrolled DM II Last A1C 10.3 on 06/21 On Basaglar, Lispro, Janumet as outpt Hold outpt regimen Continue lantus/novolog per protocol (6) Obesity: BMI:38.1 encourage lifestyle modifications DVT Px: on iv Heparin, coumadin Code Status Full Code Disposition: Expected discharge home when INR is therapeutic -- Patient cannot afford Lovenox due to insurance issues Follow up: PCP Stephany Castillo PA-C upon discharge Subjective Waiting to be discharged from hospital, INR 1.9 today, patient is on Coumadin 10 mg daily, on IV heparin bridge therapy Denies of any shortness of breath, no hypoxia in room air ambulating independently, lower extremity swelling, erythema has completely resolved No fever or chills no cough denies of any other GI or symptoms Review of Systems Review of Systems: All systems reviewed & are unremarkable except as noted in HPI & below Physical Exam Physical Exam: GENERAL: No sign of distress, HEENT: Sclera nonicteric, pink-purple bilateral equal reactive to light extraocular muscle intact Normal oral mucosa, neck: No JVD, no thyromegaly, trachea midline Lungs: Clear to auscultate, no wheeze or rales Cardiovascular: Regular S1 and S2, no murmur or gallop, no JVD, no lower extremity edema Abdomen: Soft, nontender, bowel sounds active, no hepatosplenomegaly Extremities: No rash or deformity, normal joint, Neuro: No focal neurological deficit, no dysarthria, no facial droop Psych: Alert awake oriented x3: Euthymic Skin: No rash LYMPH NODES: No cervical lymphadenopathy Results & Data Vital Signs (Past 12 Hours) Vital Signs Temp Pulse Resp BP Pulse Ox 07/12/19 15:20 36.8 C 84 20 123/82 98 07/12/19 07:13 37.0 C 77 18 97/64 L 96 (1) DVT, bilateral lower limbs Affected thrombotic vein of extremity: unspecified vein of extremity Chronicity: unspecified Qualified Code(s): I82.403 - Acute embolism and thrombosis of unspecified deep veins of lower extremity, bilateral
[2019-07-12] MEDS: ACETAMINOPHEN 1,000 MG/100 ML VIAL IV PRN (19:58)
[2019-07-12] MEDS: INSULIN GLARGINE SOLOSTAR 100 UNITS/ML 3 ML PEN SC SCH (20:55)
[2019-07-12] MEDS: TRAZODONE HCL 100 MG TAB PO PRN (20:56)
[2019-07-13 06:03] LABS: INR 2.2 (0.9-1.1); Prothrombin Time 21.2 Seconds (9.0-12.0)
[2019-07-13] MEDS: lamoTRIgine 100 MG TAB PO SCH (07:50)
[2019-07-13] MEDS: LIDOCAINE 5% 1 PATCH TD SCH (07:50)
[2019-07-13] MEDS: FLUOXETINE HCL 20 MG CAP PO SCH (07:50)
[2019-07-13 08:13] LABS: Partial Thromboplastin Ratio 2.6
[2019-07-13 08:18] LABS: Partial Thromboplastin Time 71.8 Seconds (21.0-31.0)
[2019-07-13] MEDS: INSULIN ASPART 100 UNITS/ML 3 ML PEN SC SCH ×2 (08:51→13:34)
[2019-07-13] MEDS ORDERED: ACETAMINOPHEN 325 MG TAB PO STA (14:19)
--- NOTE | 2019-07-13 19:13 | Discharge Summary ---
Date of Service July 13, 2019 Admission HPI Per Admitting Provider This is a 28 yr old F who has significant past medical history of antiphospholipid antibody syndrome, recurrent DVTs/PEs due to above with first being diagnosed at age 19, T2DM, bipolar disorder, depression, morbid obesity who presents to [facility] ED secondary to exertional chest pain and right leg pain x1 day. Patient was in her usual state of health whenever she was walking today and noted to have precordial, nonradiating chest discomfort, not worse with deep breathing or movement. Chest discomfort similar to prior diagnosis of PE. Did not try anything OTC for pain. She also complai amandeep of right leg and ankle pain and increased swelling of her right leg. Due to these concerns she called her PCP who recommended she seek ED. Currently she denies any fever, chills, sweats, recent illness, lightheadedness, dizziness, chest pain at rest, palpitations, hemoptysis, nausea, vomiting, abdominal pain, change in her bowel or urinary habits. She denies smoking. Denies OCP use. Of significance patient was first diagnosed with PE at age 19. Was found to have antiphospholipid antibody syndrome. Was on warfarin in past with difficulty maintaining therapeutic INR and therefore was switched to NOAC. Has been on Xarelto and most recently Eliquis. Unfortunately patient recently hospitalized 04/12 at [facility] secondary to CT scan revealing multiple PEs are new from prior study. At this time she was on Eliquis. She was seen by hematology who recommended discontinuing Eliquis and patient was discharged home on Lovenox. She did success with Lovenox in the past and had previously been on it for a year duration, but not a fan of it due to discomfort of injection. She admits to being compliant with Eliquis. She is very frustrated with her frequent hospitalizations without answers as to why she keeps getting blood clots. Patient family members at bedside. Outline of recent medical history: - November 2017: Admitted to [facility] for bilateral pulmonary emboli with possible right heart strain. Found to have Antiphospholipid syndrome. - January 2018: At [facility]. Re-admitted with sub-therapeutic INR, found to have new RLE DVT w/ bilateral pulmonary emboli. Discharged on coumadin. - January 2018 - November 2018: at some point patient started taking Eliquis, after sometime she was unable to afford this and switched to Xarelto. - November 2018: Admitted to [facility], on Xarelto at presentation, diagnosed with recurrent DVT and PE, discharged on Lovenox. Was supposed to follow up with Dr. Dariusz Kohler (hematology at [facility] for recurrent DVT/PE while on OAC). - January 2019: Per [facility] ED note and patient, still on Lovenox at home - February 2019: Transitioned to Eliquis (says PCP switched her to Eliquis and was supplying free samples bc she could not afford Lovenox) Says the only anticoagulant that she did not experience pulmonary emboli or DVT while taking was Lovenox during her teenage years. Stopped coumadin as she was unable to maintain a therapeutic INR. Principal Diagnosis Bilateral lower extremity deep vein thrombosis/ANTIPHOSPHOLIPID ANTIBODY SYNDROME Discharge Exam GENERAL: No sign of distress, HEENT: Sclera nonicteric, pink-purple bilateral equal reactive to light extraocular muscle intact Normal oral mucosa, neck: No JVD, no thyromegaly, trachea midline Lungs: Clear to auscultate, no wheeze or rales Cardiovascular: Regular S1 and S2, no murmur or gallop, no JVD, no lower extremity edema Abdomen: Soft, nontender, bowel sounds active, no hepatosplenomegaly Extremities: No rash or deformity, normal joint, Neuro: No focal neurological deficit, no dysarthria, no facial droop Psych: Alert awake oriented x3: Euthymic Skin: No rash LYMPH NODES: No cervical lymphadenopathy Discharge Data Allergies Allergy/AdvReac Type Severity Reaction Status Date / Time No Known Allergies Allergy Verified 07/04/19 17:16 Consultations 07/04/19 19:10 ED Decision to Admit Stat 07/04/19 21:14 Consult Case Management - Discharge Planning Routine Ordered Studies 07/04/19 16:41 CT angio chest PE protocol Stat US venous doppler LE BI Stat Hospital Course (1) Bilateral pulmonary embolism: Recurrent DVT and PE secondary to under lying hyper coagulable state, antiphospholipid antibody syndrome, Patient should be treated with either Coumadin, or low molecular weight Lovenox only Avoid NOAC , Insufficient data for the effectiveness of NOAC (new oral anticoagulants) in the setting of hyper coagulable state due to antiphospholipid antibody syndrome Patient presented with bilateral lower extremity extensive DVT/PE while on Eliquis Patient was treated with IV heparin bridge and Coumadin, INR therapeutic 3.1 today, IV heparin bridge discontinued She was discharged home with p.o. Coumadin, goal INR 23, patient will continue to follow with Coumadin clinic (2) DVT, bilateral lower limbs: (3) Antiphospholipid antibody syndrome: Patient is a 28 yr female with H/O antiphospholipid antibody syndrome, recurrent DVTs/PEs, DM II, bipolar disorder, depression, morbid obesity who presents secondary to exertional chest pain and right leg pain x1 day. Presented with acute PE B/L R LE DVT H/O antiphospholipid syndrome, recurrent DVT, PEs --CTA:high suspicious for segmental and subsegmental acute pulmonary emboli in bilateral lower lobes. --Venous Doppler: Bilateral DVT more extensive on the right. Suspected acute DVT on the right and large chronic appearing DVT on the left. Negative troponin, negative hCG Was on Eliquis 10 mg p.o. twice daily Given history of antiphospholipid antibody syndrome, patient not an ideal candidate for Eliquis Appreciate input from Treated with IV heparin bridge therapy, Coumadin INR therapeutic, IV heparin discontinued, patient is discharged on p.o. Coumadin today (4) Hypokalemia: Resolved (5) Diabetes mellitus type 2 in obese: uncontrolled DM II Last A1C 10.3 on 06/21 On Basaglar, Lispro, Janumet as outpt Hold outpt regimen Continue lantus/novolog per protocol (6) Obesity: BMI:38.1 encourage lifestyle modifications DVT Px: On Coumadin Code Status Full Code Disposition: Stable to be discharged home today with oral Coumadin for chronic anticoagulation therapy patient will need lifelong Coumadin anticoagulation secondary to antiphospholipid antibody syndrome Follow up: PCP Stephany Castillo PA-C upon discharge Total Time Total Time Spent Total Time Spent (In Minutes): Approximately 35 minutes Total Time Includes: Examination of the Patient, Discharge Planning and Medication Reconciliation Discharge Plan Discharge Items Patient Disposition: Home - Self-Care Reason For Visit: PE Discharge Diagnosis: Bilateral lower extremity deep vein thrombosis/ANTIPHOSPHOLIPID ANTIBODY SYNDROME Condition on Discharge: Good Activity: Resume your previous activity Non-emergency contact: Primary Care Provider Call non-emergency contact if: you have any medication questions Follow-up/Referrals: PCP,RAPHAEL [Primary Care Provider] - Diet: Regular Addtl Attending Provider Instructions: Hospital follow-up with Dr. Danny Melendez on 07/16/2019 at 11 AM at [facility] Follow-up with Coumadin clinic for further adjustment of Coumadin dose if needed and monitoring of PT/INR Pending Studies at Discharge: No Stand-Alone Forms: My [facility] Medications and DC Order Prescriptions: New warfarin [Coumadin] 7.5 mg tablet 7.5 mg PO DAILY Qty: 30 RF: 5 Continued trazodone 50 mg Tablet 100 mg PO HS RF: 0 lamotrigine [Lamictal] 100 mg Tablet 100 mg PO DAILY RF: 0 insulin lispro [Admelog SoloStar U-100 Insulin] 100 unit/mL Insulin Pen 15 unit subcut TIDM RF: 0 fluoxetine [Prozac] 20 mg Capsule 20 mg PO DAILY RF: 0 Janumet 50-500 mg Tablet 1 tab PO BIDM RF: 0 Basaglar KwikPen U-100 Insulin 100 unit/mL (3 mL) Insulin Pen 40 unit SUBCUT HS RF: 0 Discontinued Eliquis 5 mg Tablet 10 mg PO BID PRN (Reason: Insomnia) RF: 0 Discharge Orders: Discharge Order (Routine); Ordered 07/13/19 Ordered By: Juanita Robbins/Other Patient Handouts: Hyperglycemia, Hypoglycemia, Diabetes Type 2 Coping, Diabetes Meal Planning Admission Data Admit Date/Time: 07/04/19 19:33 Attending Provider: Juanita Brown Admit Provider: Tyson Trejo Primary Care Provider: PCP,NO Other Providers: Tyson Trejo Other Interventions: Discharge Summary Assessment (RN) Last Done: 07/13/19 10:35 DC Date/Time DO NOT enter until pt leaves facility: 07/13/19 15:32
== END 2019-07-13 15:32 | disposition home or self-care (01) | DRG 814 ==
LOC: ED 16:06 → SUATTDRO 19:33 → 2S 19:33 → 4W 07-11 19:12

== ENCOUNTER 2020-01-24 00:46 | Observation (INO) ==
[2020-01-24] MEDS ORDERED: ACETAMINOPHEN 1,000 MG/100 ML VIAL IV STA (00:59)
[2020-01-24] MEDS ORDERED: ONDANSETRON INJ 2 MG/ML 2 ML VIAL IV STA (00:59)
[2020-01-24] MEDS ORDERED: SODIUM CHLORIDE 0.9% 1000ML 1,000 ML IV SCH (01:00)
[2020-01-24 01:20] LABS: Hemoglobin 9.5 g/dL (12.0-16.0); Mean Corpuscular Hemoglobin 29.8 pg (25-34); Mean Corpuscular Hgb Conc 32.8 g/dL (32-36); Mean Corpuscular Volume 90.9 fL (80-100); Mean Platelet Volume 11.1 fL (7.4-10.4); Nucleated RBC # (auto) 0.03 K/uL (0-0); Nucleated RBC % (auto) 0.3 %; Platelet Count 157 K/uL (130-400); RDW Coefficient of Variation 19.1 % (11.5-14.5); RDW Standard Deviation 63.1 fL (36.4-46.3); Red Blood Count 3.19 M/uL (4.2-5.4); White Blood Count 12.63 K/uL (4.8-10.8)
[2020-01-24 01:38] LABS: Appearance Urine Cloudy (Clear); Bacteria Urine Automated 1+ (Negative); Bilirubin Urine Negative (Negative); Blood Urine Negative (Negative); Cast Urine Automated 0 /lpf (0-5); Color Urine Yellow; Glucose Urine UA Negative (Negative); Ketones Urine Negative (Negative); Leukocyte Esterase Urine 1+ (Negative); Nitrite Urine Negative (Negative); Protein Urine Negative (Negative); RBC Urine Automated 0-4 /hpf (0-4); Urobilinogen Urine Negative (Negative)
[2020-01-24 01:38] LABS: Alanine Aminotransferase 140 U/L (12-78); Albumin Level 2.7 gm/dl (3.4-5.0); Aspartate Aminotransferase 78 U/L (15-37); BUN Creatinine Ratio 24.4 (10-20); Blood Urea Nitrogen 18 mg/dl (7-18); Calcium 8.8 mg/dl (8.5-10.1); Carbon Dioxide 24 mmol/L (21-32); Chloride 108 mmol/L (98-107); Est GFR (African American) 126.6; Est GFR (Non-African American) 109.2; Glucose 87 mg/dl (70-99); Potassium 4.1 mmol/L (3.5-5.1); Sodium 137 mmol/L (136-145)
[2020-01-24 01:40] LABS: Albumin Globulin Ratio 0.6 (0.9-2); Alkaline Phosphatase 146 U/L (45-117); Bilirubin,Total 0.5 mg/dl (0.2-1); Globulin 4.7 gm/dl (2.5-4.0); Total Protein 7.4 gm/dl (6.4-8.2)
[2020-01-24 01:41] LABS: Basophils # (auto) 0.02 K/uL (0-0.2); Basophils % (auto) 0.2 %; Eosinophils # (auto) 0.07 K/uL (0-0.5); Eosinophils % (auto) 0.6 %; Immature Granulocytes # (auto) 0.58 K/uL (0.00-0.02); Immature Granulocytes % (auto) 4.6 %; Lymphocytes # (auto) 0.85 K/uL (1.2-3.4); Lymphocytes % (auto) 6.7 %; Monocytes # (auto) 0.75 K/uL (0.11-0.59); Monocytes % (auto) 5.9 %; Neutrophils # (auto) 10.36 K/uL (1.4-6.5); Polychromasia 1+
[2020-01-24 01:55] LABS: Amphetamines+Metham, Urine Neg (Neg); Barbiturates, Urine Neg (Neg); Benzodiazepine, Urine Neg (Neg); Cocaine, Urine Neg (Neg); MDMA (Ecstacy), Urine Neg (Neg); Methadone, Urine Neg (Neg); Opiate, Urine Neg (Neg); Phencyclidine, Urine Neg (Neg)
[2020-01-24 03:41] LABS: Hepatitis B Surface Antigen Neg (Neg)
[2020-01-24 04:09] LABS: Hepatitis C IgG 13Yrs+Old_Rflx Neg (Neg)
[2020-01-24] MEDS ORDERED: FAMOTIDINE 20MG IV PUSH 20 MG/5 ML SYR IV STA (04:10)
[2020-01-24] MEDS ORDERED: BETAMETH SOD PHOS/ACETATE IA 6 MG/ML IM STA (04:38)
[2020-01-24] MEDS ORDERED: ONDANSETRON INJ 2 MG/ML 2 ML VIAL IV PRN (04:38)
[2020-01-24] MEDS ORDERED: PROMETHAZINE HCL 25 MG in SODIUM CHLORIDE 0.9% 50 ML IV PRN (04:44)
[2020-01-24] MEDS ORDERED: FAMOTIDINE 20 MG TAB PO STA (04:52)
[2020-01-24] MEDS ORDERED: PROMETHAZINE HCL INJ 25 MG/ML 1 ML VIAL ONE (04:57)
[2020-01-24] MEDS ORDERED: PROMETHAZINE 25 MG/51 ML NSS IV ONE (04:57)
--- NOTE | 2020-01-24 05:02 | History & Physical Report ---
Date of Service January 24, 2020 Assessment & Plan (1) Acute epigastric pain: 29 yo at 31+ wks with abdominal pain/ epigastric pain, N&V and elevated LFT's VSS Afebrile Preliminary US with normal GB, cervical length and growth but low TAMERA Plan to transfer to L&D for observation, IVF, IV antiemetics and repeat labs, GI consult and [place] [facility] [place] seems like pre[place] (2) Nausea & vomiting: (3) Nausea and vomiting: (4) Elevated LFTs: (5) History of DVT (deep vein thrombosis): (6) History of pulmonary embolism: History of Present Illness Chief Complaint: Abdominal apin Primary Care Provider: Melissa Melendez MD Patient is a 29 yo at 31+ wks who presented to ER with epigastric pain, " pain on breast bone" this morning She was given IVF and Zofran and it helped a little bit and now she has pain all over her abdomen Not sure she has ctxs but might be she is cramping No LOF/VB She is not sure baby is moving but states she has been in pain and not paying attention, was told baby is fine on US and was moving last night No CLARK/ Change in vision +N&V No diarrhea or constipation. She had blood work with elevated LFT's, stable since last week No h/o liver problems No fever/ chills/ CP/SOB Allergies Allergy/AdvReac Type Severity Reaction Status Date / Time No Known Allergies Allergy Verified 01/24/20 01:05 Home Medications Home Medications Medication Instructions Recorded Confirmed Type enoxaparin 120 mg SUBCUT Q12 09/24/19 01/24/20 History PNV cmb#95-ferrous fumarate-FA 1 tab PO QAM 10/20/19 01/24/20 History [] ferrous sulfate 325 mg PO QAM 10/20/19 01/24/20 History levothyroxine 25 mcg PO QAM 10/20/19 01/24/20 History docusate sodium [Colace] 100 mg PO BID #60 cap 12/25/19 01/24/20 Rx acetaminophen [Tylenol Extra 500 mg PO Q6H PRN 01/15/20 01/24/20 History Strength] insulin aspart U-100 [Novolog 30 unit SUBCUT TIDM 01/15/20 01/24/20 History Flexpen U-100 Insulin] insulin glargine [Lantus Solostar 35 unit SUBCUT HS 01/15/20 01/24/20 History U-100 Insulin] Patient History Medical History Anemia affecting Depression Diabetes mellitus type 2 in obese (Chronic) Hearing loss (Chronic) Hepatic steatosis History of DVT (deep vein thrombosis) (Chronic) "LLE in 2009 and 12/2015" History of pulmonary embolism (Chronic) "06/2010- Multiple segmental and subsegmental pulmonary emboli bilaterally 01/09/16 CTA chest- Small bilateral pulmonary emboli" Hypothyroid in , antepartum Insomnia Learning disorder (Chronic) Obesity (Chronic) Red cell alloimmunization, maternal, antepartum Substernal chest pain (Acute) Subtherapeutic international normalized ratio (INR) (Acute) Surgical History History of dental surgery (Chronic) History of tonsillectomy and adenoidectomy (Chronic) Hx of tympanostomy tubes (Chronic) Family History Grandfather (Maternal) Coronary heart disease CABG Grandmother (Paternal) Coronary heart disease CABG Denies family history of Deep vein thrombosis Hypercoagulable state Social History Preferred Language: Yakut Communication Ability: Effective Steam Box Tender Required: No Beliefs That Will Affect Care: None marital status: Single Current Living Situation: Parent Feels Safe at Home: Yes Smoking Status: Never smoker Second Hand Exposure: No ; Hx Alcohol Use: Yes Alcohol type: beer Alcohol Intake Frequency: Rarely Hx Substance Use: No Review of Systems All systems reviewed & are unremarkable except as noted in HPI & below Physical Exam Constitutional: WD/WN, vitals as above well developed, well nourished, + acute distress (seems uncomfortable and vomiting) and + obese Gastrointestinal (Abdomen): Abd: soft, epigastric and RUQ tenderness+, no rebound Musculoskeletal: no cyanosis or clubbing, extremities motor strength 5/5 LE: Trace edema, no clonus, DTR +1/+1 Genitourinary: Cervix ft/ closed, high, posterior Results & Data Vital Signs (Past 12 Hours) Vital Signs Temp Pulse Resp BP Pulse Ox 01/24/20 03:31 88 24 97 01/24/20 03:30 94 H 21 124/71 96 01/24/20 03:00 86 22 128/70 98 01/24/20 02:45 36.9 C 85 19 134/75 98 01/24/20 01:30 99 H 24 153/93 H 99 01/24/20 01:13 97 H 24 132/95 99 01/24/20 00:53 37.6 C H 88 18 159/97 H 97 Laboratory Results 01/24/20 01/24/20 01/24/20 Range/Units 03:23 01:14 01:14 WBC (4.8-10.8) K/uL RBC (4.2-5.4) M/uL Hgb (12.0-16.0) g/dL Hct (37-47) % MCV (80-100) fL MCH (25-34) pg MCHC (32-36) g/dL RDW Std Deviation (36.4-46.3) fL RDW Coeff of Rosita (11.5-14.5) % Plt Count (130-400) K/uL MPV (7.4-10.4) fL Immature Gran % (Auto) % Neut % (Auto) % Lymph % (Auto) % [place] % (Auto) % Eos % (Auto) % Baso % (Auto) % Immature Gran # (Auto) (0.00-0.02) K/uL Neut # (Auto) (1.4-6.5) K/uL Lymph # (Auto) (1.2-3.4) K/uL [place] # (Auto) (0.11-0.59) K/uL Eos # (Auto) (0-0.5) K/uL Baso # (Auto) (0-0.2) K/uL Absolute Nucleated RBC (0-0) K/uL Nucleated RBC % (auto) % Polychromasia Sodium (136-145) mmol/L Potassium (3.5-5.1) mmol/L Chloride (98-107) mmol/L Carbon Dioxide (21-32) mmol/L Anion Gap (3-11) BUN (7-18) mg/dl Creatinine (0.6-1.2) mg/dl Est Cr Clr Drug Dosing Est GFR ( Amer) Est GFR (Non-Af Amer) BUN/Creatinine Ratio (10-20) Glucose (70-99) mg/dl Calcium (8.5-10.1) mg/dl Total Bilirubin (0.2-1) mg/dl AST (15-37) U/L ALT (12-78) U/L Alkaline Phosphatase (45-117) U/L Total Protein (6.4-8.2) gm/dl Albumin (3.4-5.0) gm/dl Globulin (2.5-4.0) gm/dl Albumin/Globulin Ratio (0.9-2) Urine Color Yellow Urine Appearance Cloudy A (Clear) Urine pH 5.0 (4.5-7.5) Ur Specific [place] 1.020 (1.000-1.030) Urine Protein Negative (Negative) Urine Glucose (UA) Negative (Negative) Urine Ketones Negative (Negative) Urine Blood Negative (Negative) Urine Nitrite Negative (Negative) Urine Bilirubin Negative (Negative) Urine Urobilinogen Negative (Negative) Ur Leukocyte Esterase 1+ H (Negative) Urine WBC (Auto) 10-30 H (0-5) /hpf Urine RBC (Auto) 0-4 (0-4) /hpf U Hyaline Cast (Auto) 0 (0-5) /lpf U Epithel Cells (Auto) 10-20 H (0-5) /lpf Urine Bacteria (Auto) 1+ H (Negative) Urine Opiates Screen Neg (Neg) Ur Methadone, Qual Neg (Neg) Urine Barbiturates Neg (Neg) Ur Phencyclidine (PCP) Neg (Neg) U Amphetamin/Meth Scrn Neg (Neg) MDMA (Ecstasy) Screen Neg (Neg) U Benzodiazepines Scrn Neg (Neg) Ur Cocaine Metabolite Neg (Neg) U Marijuana (THC) Screen Neg (Neg) Hepatitis A IgM Ab Pending Hep Bs Antigen (Neg) Hep B Core IgM Ab Pending Hepatitis C Antibody (Neg) Monoscreen (Negative) Influenza Type A Ag (Neg) Influenza Type B Ag (Neg) 01/24/20 01/24/20 01/24/20 Range/Units 01:10 01:00 01:00 WBC (4.8-10.8) K/uL RBC (4.2-5.4) M/uL Hgb (12.0-16.0) g/dL Hct (37-47) % MCV (80-100) fL MCH (25-34) pg MCHC (32-36) g/dL RDW Std Deviation (36.4-46.3) fL RDW Coeff of Rosita (11.5-14.5) % Plt Count (130-400) K/uL MPV (7.4-10.4) fL Immature Gran % (Auto) % Neut % (Auto) % Lymph % (Auto) % [place] % (Auto) % Eos % (Auto) % Baso % (Auto) % Immature Gran # (Auto) (0.00-0.02) K/uL Neut # (Auto) (1.4-6.5) K/uL Lymph # (Auto) (1.2-3.4) K/uL [place] # (Auto) (0.11-0.59) K/uL Eos # (Auto) (0-0.5) K/uL Baso # (Auto) (0-0.2) K/uL Absolute Nucleated RBC (0-0) K/uL Nucleated RBC % (auto) % Polychromasia Sodium (136-145) mmol/L Potassium (3.5-5.1) mmol/L Chloride (98-107) mmol/L Carbon Dioxide (21-32) mmol/L Anion Gap (3-11) BUN (7-18) mg/dl Creatinine (0.6-1.2) mg/dl Est Cr Clr Drug Dosing Est GFR ( Amer) Est GFR (Non-Af Amer) BUN/Creatinine Ratio (10-20) Glucose (70-99) mg/dl Calcium (8.5-10.1) mg/dl Total Bilirubin (0.2-1) mg/dl AST (15-37) U/L ALT (12-78) U/L Alkaline Phosphatase (45-117) U/L Total Protein (6.4-8.2) gm/dl Albumin (3.4-5.0) gm/dl Globulin (2.5-4.0) gm/dl Albumin/Globulin Ratio (0.9-2) Urine Color Urine Appearance (Clear) Urine pH (4.5-7.5) Ur Specific [place] (1.000-1.030) Urine Protein (Negative) Urine Glucose (UA) (Negative) Urine Ketones (Negative) Urine Blood (Negative) Urine Nitrite (Negative) Urine Bilirubin (Negative) Urine Urobilinogen (Negative) Ur Leukocyte Esterase (Negative) Urine WBC (Auto) (0-5) /hpf Urine RBC (Auto) (0-4) /hpf U Hyaline Cast (Auto) (0-5) /lpf U Epithel Cells (Auto) (0-5) /lpf Urine Bacteria (Auto) (Negative) Urine Opiates Screen (Neg) Ur Methadone, Qual (Neg) Urine Barbiturates (Neg) Ur Phencyclidine (PCP) (Neg) U Amphetamin/Meth Scrn (Neg) MDMA (Ecstasy) Screen (Neg) U Benzodiazepines Scrn (Neg) Ur Cocaine Metabolite (Neg) U Marijuana (THC) Screen (Neg) Hepatitis A IgM Ab Hep Bs Antigen Neg (Neg) Hep B Core IgM Ab Hepatitis C Antibody Neg (Neg) Monoscreen Negative (Negative) Influenza Type A Ag Neg for Influ A (Neg) Influenza Type B Ag Neg for Influ B (Neg) 01/24/20 01/24/20 Range/Units 01:00 01:00 WBC 12.63 H (4.8-10.8) K/uL RBC 3.19 L (4.2-5.4) M/uL Hgb 9.5 L (12.0-16.0) g/dL Hct 29.0 L (37-47) % MCV 90.9 (80-100) fL MCH 29.8 (25-34) pg MCHC 32.8 (32-36) g/dL RDW Std Deviation 63.1 H (36.4-46.3) fL RDW Coeff of Rosita 19.1 H (11.5-14.5) % Plt Count 157 (130-400) K/uL MPV 11.1 H (7.4-10.4) fL Immature Gran % (Auto) 4.6 % Neut % (Auto) 82.0 % Lymph % (Auto) 6.7 % [place] % (Auto) 5.9 % Eos % (Auto) 0.6 % Baso % (Auto) 0.2 % Immature Gran # (Auto) 0.58 H (0.00-0.02) K/uL Neut # (Auto) 10.36 H (1.4-6.5) K/uL Lymph # (Auto) 0.85 L (1.2-3.4) K/uL [place] # (Auto) 0.75 H (0.11-0.59) K/uL Eos # (Auto) 0.07 (0-0.5) K/uL Baso # (Auto) 0.02 (0-0.2) K/uL Absolute Nucleated RBC 0.03 H (0-0) K/uL Nucleated RBC % (auto) 0.3 % Polychromasia 1+ Sodium 137 (136-145) mmol/L Potassium 4.1 (3.5-5.1) mmol/L Chloride 108 H (98-107) mmol/L Carbon Dioxide 24 (21-32) mmol/L Anion Gap 5.0 (3-11) BUN 18 (7-18) mg/dl Creatinine 0.75 (0.6-1.2) mg/dl Est Cr Clr Drug Dosing Not Reportable Est GFR ( Amer) 126.6 Est GFR (Non-Af Amer) 109.2 BUN/Creatinine Ratio 24.4 H (10-20) Glucose 87 (70-99) mg/dl Calcium 8.8 (8.5-10.1) mg/dl Total Bilirubin 0.5 (0.2-1) mg/dl AST 78 H (15-37) U/L ALT 140 H (12-78) U/L Alkaline Phosphatase 146 H (45-117) U/L Total Protein 7.4 (6.4-8.2) gm/dl Albumin 2.7 L (3.4-5.0) gm/dl Globulin 4.7 H (2.5-4.0) gm/dl Albumin/Globulin Ratio 0.6 L (0.9-2) Urine Color Urine Appearance (Clear) Urine pH (4.5-7.5) Ur Specific [place] (1.000-1.030) Urine Protein (Negative) Urine Glucose (UA) (Negative) Urine Ketones (Negative) Urine Blood (Negative) Urine Nitrite (Negative) Urine Bilirubin (Negative) Urine Urobilinogen (Negative) Ur Leukocyte Esterase (Negative) Urine WBC (Auto) (0-5) /hpf Urine RBC (Auto) (0-4) /hpf U Hyaline Cast (Auto) (0-5) /lpf U Epithel Cells (Auto) (0-5) /lpf Urine Bacteria (Auto) (Negative) Urine Opiates Screen (Neg) Ur Methadone, Qual (Neg) Urine Barbiturates (Neg) Ur Phencyclidine (PCP) (Neg) U Amphetamin/Meth Scrn (Neg) MDMA (Ecstasy) Screen (Neg) U Benzodiazepines Scrn (Neg) Ur Cocaine Metabolite (Neg) U Marijuana (THC) Screen (Neg) Hepatitis A IgM Ab Hep Bs Antigen (Neg) Hep B Core IgM Ab Hepatitis C Antibody (Neg) Monoscreen (Negative) Influenza Type A Ag (Neg) Influenza Type B Ag (Neg) Code Status & VTE Plan VTE Prophylaxis Plan VTE Prophylaxis will be ordered: Yes (1) Nausea & vomiting Vomiting Intractability: non-intractable Vomiting type: unspecified Qualified Code(s): R11.2 - Nausea with vomiting, unspecified (2) Nausea and vomiting Vomiting Intractability: non-intractable Vomiting type: unspecified Qualified Code(s): R11.2 - Nausea with vomiting, unspecified
[2020-01-24] MEDS ORDERED: LACTATED RINGER'S 500 ML IV ONE (05:36)
[2020-01-24] MEDS: LACTATED RINGER'S 1,000 ML IV PRN ×3 (05:58→16:09)
[2020-01-24] MEDS ORDERED: BUTORPHANOL TARTRATE 1 MG/ML VIAL IV PRN (06:07)
[2020-01-24] MEDS: LEVOTHYROXINE SODIUM 25 MCG TABLET PO SCH ×2 (06:26→06:47)
[2020-01-24] MEDS ORDERED: GLUCOSE 10 TABS/TUBE PO PRN (06:45)
[2020-01-24] MEDS ORDERED: CARBOHYDRATES FOR HYPOGLYCEMIA PO PRN (06:45)
[2020-01-24] MEDS ORDERED: GLUCOSE 40% GEL 15 GM TUBE PO PRN (06:45)
[2020-01-24] MEDS ORDERED: GLUCAGON FOR INJ 1 MG VIAL IM PRN (06:45)
[2020-01-24] MEDS ORDERED: DEXTROSE 50% 50 ML SYRINGE IV PRN (06:45)
[2020-01-24 07:05] LABS: INR 1.2 (0.9-1.1); Prothrombin Time 12.1 Seconds (9.0-12.0)
--- NOTE | 2020-01-24 07:06 | Ultrasound Report ---
US gallbladder CLINICAL HISTORY: +preg. Abd pain. Elevated lfts COMPARISON STUDY: 01/15/2020 FINDINGS: The pancreas appears sonographically normal. The gallbladder appears sonographically normal . There is no ductal dilatation. The common bile duct measures 5 mm. There is no right-sided hydronep hrosis. There is a 6 mm echogenic focus within the right kidney. This is nonspecific but could repres ent an angiomyolipoma. There is a nonspecific 4 cm hypoechoic area within the left lobe of the liver. This cannot be further characterized. The liver is slightly heterogeneous in echotexture. IMPRESSION: 1. Ultrasonographically normal gallbladder 2. Slight hepatic heterogeneity. Nonspecific 4 cm hypoechoic area within the left lobe of the liver. This cannot be further characterized on ultrasound. 3. No evidence of ductal dilatation. ACT 112: Negative or not required by law. Electronically signed by: Kin Smith M.D. 01/24/2020 7:05 AM
--- NOTE | 2020-01-24 07:41 | Ultrasound Report ---
US OB limited CLINICAL HISTORY: 29 years-old Female presenting with generalized abdominal pain in 31 weeks 4 days p regnancy, no vaginal bleeding or cramping, . TECHNIQUE: Real-time grayscale and M-mode ultrasound imaging of the pelvis was performed using a prince sabdominal probe for a third trimester evaluation. COMPARISON: 09/24/2019. FINDINGS: Bladder: Normal. Uterus: Single live intrauterine . size metrics: 1. Head circumference 28.8 cm corresponding to a gestational age of 31 weeks 5 days. 2. Biparietal diameter 7.8 cm corresponding to gestational age 31 weeks 1 day. 3. Femur length 5.7 cm corresponding to an estimated gestational age 29 weeks 6 days. 4. Abdominal circumference 24.9 cm corresponding to an estimated gestational age 29 weeks 1 day. 5. Composite gestational age 30 weeks 1 day corresponding to an estimated date of delivery 04/02/2020 , which is likely concordant with the reported gestational age of 31 weeks 4 days. heart rate: 154 beats per minute. Orientation: Cephalic presentation. Gestational sac shape: No rmal configuration. Amniotic fluid volume: Borderline low amniotic fluid volume. TAMERA: 5.6 cm. Placent a: Anterior fundal placental implantation. Placental venous lakes suspected, which can be normal. No perigestational fluid to suggest hemorrhage. Cervix: Long and closed. Cervical length: 3.8 cm. Right adnexa: Right ovary: Not visualized. Left adnexa: Left ovary: Not visualized. Other: No large volume free fluid. IMPRESSION: Single live intrauterine third trimester with borderline low amniotic fluid volume raising concern for oligohydramnios. Recommend close clinical and imaging follow-up. ACT 112: Negative or not required by law. Electronically signed by: Jacky Holland M.D. 01/24/2020 7:39 AM
--- NOTE | 2020-01-24 08:41 | Gastrointestinal Consultation ---
Date of Consultation January 24, 2020 Assessment & Plan (1) Elevated LFTs: Pt is a 39 y/o female currently 31 weeks , admitted w epigastric pain and abdominal cramping symptoms. Initially suspected pre-eclampsia given elevated BP and LFTs, however currently less suspected given BP normalized and normal plt ct, no proteinuria. Hepatitis, monoscreen, flu screen, urine toxicity so far unremarkable. Hep A and Bc IgM Ab pending. DDx: PVT, hepatic steatosis, intrahepatic cholestasis in , ? HELLP - Trend LFTs - F/U Hep A and Bc serologies; add Hep E - Obtain liver doppler to r/o PVT given hx of antiphospholipid antibody syndrome, DVTs, PEs -> unremarkable - Obtain viral serologies to r/o CMV, EBV though monoscreen negative, HSV, Parvo. Add labs: GGT, Total bile acid - Discussed case with Dr. Frederick (OB) and pt/mom; if LFTs are trending upwards, and suspected acute fatty liver in , should consider having pt transferred to tertiary care center for early delivery Supervising Physician Co-Signing Physician Notes I have seen and examined the patient and discussed the management with SRINI Flores. 29 yo fm with a history of multiple prior thrombotic events, admitted with epigastric pain, fatty liver on epic imaging in the past (when no ). She appears to have had a recent ER visit for epigastric pain. No recent use of herbals, no new medications other than tylenol, no etoh use, no new tatoos, no recent viral exposures that she is aware of On today's admission, she is not febrile, no cough, just uncomfortable in her abdomen- denies recent nsaid use, no associated vomiting, pruritus, melena, diarrhea. PE - lethargic appearing with washcloth on her forehead, non-icteric, abd- , no ascites noted, Skin- multiple tatoos on arms and legs Labs reviewed- ast/alt elevation, alk phos elevation Abd robin reviewed- heterogenous appearing liver, liver lesion non specific. Prior cta reviewed from epic A/P: Elevated lft's- aih markers, viral serologies pending including hsv, hep e, she does not have hemolysis or low platelets at this time though initially she had higher bp that has improved so no current evidence of pre-eclampsia, she does not have pruritus so less likely ihcp. It is possible she could be having acute fatty liver of as the source for her elevated lft's but given the mild degree of elevation and prior imaging when not of fatty liver- would opt to trend lft's and if rising- would suspect this diagnosis as higher on the differential and likely earlier delivery of the baby could help with this. She did have underlying fatty liver prior to per review of her epic chart so this diagnosis of aflp is more common when no underlying history of fatty liver is present and occurs during but rarely can occur as a worsening of her underlying fatty liver condition during and earlier delivery is typically the recommended management (send out for chads protein could be considered but is not always helpful in mgmt of aflp). There are some concerning decelerations for the baby on the monitor per ob and also her ultrasound did show absence of breathing in the baby on the report but per discussion with ob and Carmen this is thought to be from a sedative effect on the mom and considering further options for management including potential transfer. History of Present Illness Reason for Consultation: Elevated LFTs Requesting Physician: Dr. Alicia Nolen Attending Physician: Dr. Venecia Rosas History of Present Illness Pt is a 29 y/o female who is currently seen in consultation for elevated LFTs. She is currently 31+ weeks (). She had presented to ED a week ago and last night w c/o epigastric pain, also diffuse abdominal cramping. Initial workup showed elevated BP 150/90s, and elevated LFTs (Tbili 0.5, AST 78, ALT 140, Alk phos 146). Values similar to 1 week ago during ED visit. She was admitted for possible pre-ecclempsia. However it's less suspected now given normal Plt ct, normalized BP (previous elevation suspected to be related to pain), and no proteinuria. Pt w hx of DM II, antiphospholipid antibody syndrome, previous DVTs and PE. She was previously on Xarelto, Coumadin, Eliquis but still having thrombotic complications. Currently on on Lovenox injections q12hrs & ASA 81mg daily. She denies fever, chills, CP, SOB, rashes including in oral mucosa/lips, jaundice, itching, easy bruising/bleeding. Denies changes in bowel habits such as diarrhea, rectal bleeding, black tarry stools. She did have loose stools last night after taking Colace. + nausea and some vomiting. Denies sick contact, lives w parents, and sister who she reports are not currently healthy. She has tattoos and body piercing. Denies hx of tobacco, ETOH, illicit drugs. Denies herbal supplements and APAP uses. Current workup: - Negative urine toxicology screen - Hep A IgM Ab & Hep Bc IgM Ab pending; Negative Hep BsAg, HCV Ab, Monoscreen, Influenza A/B - Gallbladder U/S showed normal gallbladder w/o CBD dilation. Liver slightly heterogenic, non specific 4cm hypoechoic area in L liver. Allergies Allergy/AdvReac Type Severity Reaction Status Date / Time No Known Allergies Allergy Verified 01/24/20 01:05 Home Medications Home Medications Medication Instructions Recorded Confirmed Type enoxaparin 120 mg SUBCUT Q12 09/24/19 01/24/20 History PNV cmb#95-ferrous fumarate-FA 1 tab PO QAM 10/20/19 01/24/20 History [] ferrous sulfate 325 mg PO QAM 10/20/19 01/24/20 History levothyroxine 25 mcg PO QAM 10/20/19 01/24/20 History docusate sodium [Colace] 100 mg PO BID #60 cap 12/25/19 01/24/20 Rx acetaminophen [Tylenol Extra 500 mg PO Q6H PRN 01/15/20 01/24/20 History Strength] insulin aspart U-100 [Novolog 30 unit SUBCUT TIDM 01/15/20 01/24/20 History Flexpen U-100 Insulin] insulin glargine [Lantus Solostar 35 unit SUBCUT HS 01/15/20 01/24/20 History U-100 Insulin] Patient History Medical History Anemia affecting Depression Diabetes mellitus type 2 in obese (Chronic) Hearing loss (Chronic) Hepatic steatosis History of DVT (deep vein thrombosis) (Chronic) "LLE in 2009 and 12/2015" History of pulmonary embolism (Chronic) "06/2010- Multiple segmental and subsegmental pulmonary emboli bilaterally 01/09/16 CTA chest- Small bilateral pulmonary emboli" Hypothyroid in , antepartum Insomnia Learning disorder (Chronic) Obesity (Chronic) Red cell alloimmunization, maternal, antepartum Substernal chest pain (Acute) Subtherapeutic international normalized ratio (INR) (Acute) Surgical History History of dental surgery (Chronic) History of tonsillectomy and adenoidectomy (Chronic) Hx of tympanostomy tubes (Chronic) Family History Grandfather (Maternal) Coronary heart disease CABG Grandmother (Paternal) Coronary heart disease CABG Denies family history of Deep vein thrombosis Hypercoagulable state Social History Preferred Language: Stateless Communication Ability: Effective Geriatrician Required: No Beliefs That Will Affect Care: None marital status: Single Current Living Situation: Parent Other Information That Helps Us Care for You: No Feels Safe at Home: Yes Safety Concerns: Feels Safe At This Time Smoking Status: Never smoker Second Hand Exposure: No ; Hx Alcohol Use: No Hx Substance Use: No Review of Systems Review of Systems: All systems reviewed & are unremarkable except as noted in HPI & below Physical Exam Constitutional: WD/WN, vitals as above well groomed, cooperative and comfortable Lethargic appearing, washcloth on her forehead Eyes: PERRL, conjunctivae normal, anicteric sclerae ENMT: external ear and nose normal, oropharynx normal Respiratory: normal respiratory effort, lungs clear to auscultation Cardiovascular: RRR, no murmur, no edema Gastrointestinal (Abdomen): Percussion/Palpation: + abdomen tender tenderness in the epigastic region Skin: no rashes, warm and dry no jaundice Neurologic: Motor/Sensory: no asterixis Psychiatric: A+Ox3, euthymic affect Lymphatic: no lymphedema Results & Data ([facility]) Vital Signs (Past 12 Hours) Vital Signs Temp Pulse Resp BP Pulse Ox 01/24/20 08:34 78 96 01/24/20 08:32 83 128/70 01/24/20 08:29 92 H 98 01/24/20 08:24 85 96 01/24/20 08:19 92 H 96 01/24/20 08:14 92 H 97 01/24/20 08:09 100 H 97 01/24/20 08:04 76 93 01/24/20 08:02 77 112/59 L 01/24/20 07:59 77 93 01/24/20 07:54 77 94 01/24/20 07:49 80 94 01/24/20 07:44 92 H 95 01/24/20 07:39 91 H 94 01/24/20 07:34 83 95 01/24/20 07:32 83 117/59 L 01/24/20 07:30 37.1 C 20 01/24/20 07:29 82 94 01/24/20 07:24 85 94 01/24/20 07:19 81 93 01/24/20 07:16 88 114/57 L 01/24/20 07:14 82 94 01/24/20 07:09 84 94 01/24/20 07:04 82 93 01/24/20 07:02 85 112/59 L 01/24/20 06:59 82 94 01/24/20 06:54 84 93 01/24/20 06:49 78 93 01/24/20 06:47 83 125/58 L 01/24/20 06:44 86 95 01/24/20 06:40 80 94 01/24/20 06:39 86 95 01/24/20 06:34 79 92 01/24/20 06:31 76 131/64 93 01/24/20 06:29 84 99 01/24/20 06:24 90 99 01/24/20 06:19 199 H 95 01/24/20 06:01 106 H 143/75 H 01/24/20 05:59 37.0 C 87 20 139/68 98 01/24/20 05:03 87 20 139/68 98 01/24/20 03:31 88 24 97 01/24/20 03:30 94 H 21 124/71 96 01/24/20 03:00 86 22 128/70 98 01/24/20 02:45 36.9 C 85 19 134/75 98 01/24/20 01:30 99 H 24 153/93 H 99 01/24/20 01:13 97 H 24 132/95 99 01/24/20 00:53 37.6 C H 88 18 159/97 H 97
[2020-01-24] MEDS ORDERED: PRENATAL VITAMIN 1 TAB PO SCH (09:00)
[2020-01-24] MEDS ORDERED: DOCUSATE SODIUM 100 MG CAP PO SCH (09:00)
[2020-01-24] MEDS ORDERED: ENOXAPARIN 100 MG/1ML SYR SQ SCH (09:00)
[2020-01-24] MEDS ORDERED: FERROUS SULFATE 325 MG TAB PO SCH (09:00)
[2020-01-24] MEDS: ENOXAPARIN INJ 120 MG/0.8 ML SYR SQ SCH ×2 (09:12→21:09)
--- NOTE | 2020-01-24 09:16 | Ultrasound Report ---
US OB BPP wo NST single CLINICAL HISTORY: 29 years-old Female presenting with decreased movement, , follow-up. TECHNIQUE: Real-time grayscale and M-mode ultrasound imaging of the pelvis was performed using a prince sabdominal probe for a third trimester evaluation. COMPARISON: 01/24/2020 at 1:56 AM. FINDINGS: Bladder: Decompressed resulting in poor sonographic penetration. Uterus: Single live intrauterine . Fetus: No breathing observed, which is abnormal. Abnormal tone. The umbilical cord is not grossly evident in the region of the neck. heart r ate: 126 beats per minute. Amniotic fluid volume: Low normal amniotic fluid volume. TAMERA: 6.1 cm. Cerv ix: Long and closed. Ultrasound biophysical profile: 01/29 Right adnexa: Right ovary: Not visualized. Left adnexa: Left ovary: Not visualized. Other: No large volume free fluid. IMPRESSION: 1. Abnormal biophysical profile: 01/29. Urgent obstetrical consultation necessary. 2. Low normal amniotic fluid volume. Oligohydramnios may be present. The report will be called/faxed according to standard departmental protocol for a critical finding. ACT 112: Negative or not required by law. Electronically signed by: Jacky Holland M.D. 01/24/2020 9:15 AM
[2020-01-24] MEDS ORDERED: INSULIN ASPART 100 UNITS/ML 3 ML PEN SC ONE (09:45)
--- NOTE | 2020-01-24 10:14 | Ultrasound Report ---
US duplex portal hepatic veins CLINICAL HISTORY: Evaluate for portal vein thrombosis. COMPARISON STUDY: Right upper quadrant ultrasound January 15, 2020 and January 24, 2020. TECHNIQUE: Color and duplex Doppler sonography of the major hepatic vessels was performed. FINDINGS: Heterogeneity of the liver is again noted. The main, left and right portal veins are patent with appropriately directed flow. The middle, left and right hepatic veins are patent. Main hepatic artery is patent with normal waveform. Splenic vein is patent with appropriately directed flow. IMPRESSION: Patent major hepatic vessels with appropriately directed flow. ACT 112: Negative or not required by law. Electronically signed by: Valentin Munoz M.D. 01/24/2020 10:13 AM
[2020-01-24] MEDS ORDERED: PANTOprazole 40 MG TAB PO SCH (11:45)
[2020-01-24 12:48] LABS: Albumin Level 2.3 gm/dl (3.4-5.0); BUN Creatinine Ratio 13.5 (10-20); Calcium 8.5 mg/dl (8.5-10.1); Creatinine Clr Calc Pharmacy 101.5 ml/min; Est GFR (African American) 97.6; Est GFR (Non-African American) 84.2
[2020-01-24 12:48] LABS: Creatinine Urine Random 39.6 mg/dl; Protein Creatinine Ratio Urine 0.2 (0-0.2); Total Protein Urine Random 8.4 mg/dl (0-11.9)
[2020-01-24 12:51] LABS: Albumin Globulin Ratio 0.5 (0.9-2); Bilirubin,Total 0.4 mg/dl (0.2-1); Globulin 4.2 gm/dl (2.5-4.0); Total Protein 6.5 gm/dl (6.4-8.2)
[2020-01-24 12:53] LABS: Basophils # (auto) 0.01 K/uL (0-0.2); Basophils % (auto) 0.1 %; Eosinophils # (auto) 0.02 K/uL (0-0.5); Eosinophils % (auto) 0.2 %; Hematocrit (blood only) 26.4 % (37-47); Hemoglobin 8.5 g/dL (12.0-16.0); Immature Granulocytes # (auto) 0.41 K/uL (0.00-0.02); Immature Granulocytes % (auto) 3.1 %; Lymphocytes # (auto) 0.53 K/uL (1.2-3.4); Mean Corpuscular Hemoglobin 29.4 pg (25-34); Mean Corpuscular Volume 91.3 fL (80-100); Mean Platelet Volume 11.6 fL (7.4-10.4); Monocytes # (auto) 0.39 K/uL (0.11-0.59); Monocytes % (auto) 2.9 %; Neutrophils # (auto) 11.94 K/uL (1.4-6.5); Neutrophils % (auto) 89.7 %; Platelet Count 157 K/uL (130-400); RDW Coefficient of Variation 19.3 % (11.5-14.5); RDW Standard Deviation 63.9 fL (36.4-46.3); Red Blood Count 2.89 M/uL (4.2-5.4)
[2020-01-24] MEDS: INSULIN ASPART 100 UNITS/ML 3 ML PEN SC SCH ×2 (12:56→17:16)
[2020-01-24 13:07] LABS: Mean Corpuscular Hgb Conc 32.2 g/dL (32-36)
--- NOTE | 2020-01-24 17:07 | Ultrasound Report ---
Study: Biophysical profile HISTORY:: Pain COMPARISON: Same day FINDINGS: biophysical profile remains 4 out of a possible 8. Amniotic fluid index is 5.3 cm. Mo vement is present. heart beat is 1 37 bpm. IMPRESSION: 1. Unchanged biophysical profile compared to the study earlier the same date. 2. Score is 4 out of a possible 8. This is again unchanged. Electronically signed by: Harsha Oneill M.D. 01/24/2020 5:06 PM
--- NOTE | 2020-01-24 19:02 | History and Physical Report ---
DATE OF ADMISSION: 01/24/2020 HISTORY OF PRESENT ILLNESS: This is a 29-year-old G1, P0, due date 03/23/2020 making her at 31 weeks and 4 days. The patient's has been complicated by the followin. History of antiphospholipid antibody syndrome, on Lovenox. 2. Pregestational diabetes. 3. History of PE in the past. The patient was doing well with her until 01/15/2020 when she presented to the Emergency Room with epigastric pain. She was seen in the ER and evaluated for epigastric pain. ALT and AST were elevated at that time. She presented today on 01/24/2020 to the Emergency Room again and was sent to labor and delivery for evaluation. Blood pressure except for when the patient was in pain is unremarkable. No protein in the urine. Platelets are fine. ALT and AST, however, continue to be high. It is unchanged from the ER visit. The patient was given Stadol for the pain. An ultrasound done showed TAMERA of 5.3. The patient was observed for several hours. GI was called to evaluate elevated LFT of unknown origin. Several labs have been ordered. Ultrasound done of the liver and gallbladder was unremarkable. Portal vein scan was done as well. Toxicology was performed of the urine. I eventually had a discussion with Dr. Scott of maternal medicine. Recommendation was to watch the patient for several hours and repeat labs. Repeat labs are unremarkable. LFT continues to be elevated, very minimally decreased, but not increasing. Biophysical profile is 4/8. The patient was on narcotics when biophysical profile was performed, so assumption at this time was that maybe biophysical profile was low because of the narcotics. strip has been most of the time reactive. Every once in a while, the patient has a deep variable or what they appeared as late deceleration. This is always improved with position change. I have therefore discussed the patient with Dr. Avila at [facility] who is the attending regional flatbed truck driver, who has agreed to admit the patient to [facility] for evaluation with MFM on board. The patient is therefore be transferred to [facility] for continuation of her care.
[2020-01-24] MEDS ORDERED: INSULIN GLARGINE SOLOSTAR 100 UNITS/ML 3 ML PEN SQ SCH (21:00)
--- NOTE | 2020-01-24 21:48 | Emergency Department Note ---
History of Present Illness General Chief complaint: Abdominal Pain Stated complaint: ABDOMINAL PAIN/NAUSEA/VOMITING Time Seen by Provider: 01/24/20 00:50 History of Present Illness Maximum Pain Intensity: 5 This is a 29-year-old female presenting to the emergency department for evaluation of epigastric abdominal pain, nausea, and vomiting. The patient is reported to be 31 weeks without complication at this point. The patient states that at times she will have full abdominal pain, that is dull, intermittent, and at worst is rated a 9/10. The patient states that she did ta ke Tylenol without any relief of symptoms. She has not had any vaginal bleeding, drainage, or discharge. No fevers or chills. She does have past history of DVT and PE and is on Lovenox. She rates her discomfort currently a 6/10. Home Medications Home Medications Medication Instructions Recorded Confirmed Type enoxaparin 120 mg SUBCUT Q12 09/24/19 01/24/20 History PNV cmb#[id number]-ferrous fumarate-FA 1 tab PO QAM 10/20/19 01/24/20 History [] ferrous sulfate 325 mg PO QAM 10/20/19 01/24/20 History levothyroxine 25 mcg PO QAM 10/20/19 01/24/20 History docusate sodium [Colace] 100 mg PO BID #60 cap 12/25/19 01/24/20 Rx acetaminophen [Tylenol Extra 500 mg PO Q6H PRN 01/15/20 01/24/20 History Strength] insulin aspart U-100 [Novolog 30 unit SUBCUT TIDM 01/15/20 01/24/20 History Flexpen U-100 Insulin] insulin glargine [Lantus Solostar 35 unit SUBCUT HS 01/15/20 01/24/20 History U-100 Insulin] Allergies Allergy/AdvReac Type Severity Reaction Status Date / Time No Known Allergies Allergy Verified 01/24/20 01:05 Past Med/Surg History Medical History Anemia affecting Depression Diabetes mellitus type 2 in obese (Chronic) Hearing loss (Chronic) Hepatic steatosis History of DVT (deep vein thrombosis) (Chronic) "LLE in 2009 and 12/2015" History of pulmonary embolism (Chronic) "06/2010- Multiple segmental and subsegmental pulmonary emboli bilaterally 01/09/16 CTA chest- Small bilateral pulmonary emboli" Hypothyroid in , antepartum Insomnia Learning disorder (Chronic) Obesity (Chronic) Red cell alloimmunization, maternal, antepartum Substernal chest pain (Acute) Subtherapeutic international normalized ratio (INR) (Acute) Surgical History History of dental surgery (Chronic) History of tonsillectomy and adenoidectomy (Chronic) Hx of tympanostomy tubes (Chronic) Family History Grandfather (Maternal) Coronary heart disease CABG Grandmother (Paternal) Coronary heart disease CABG Denies family history of Deep vein thrombosis Hypercoagulable state Social History Preferred Language: Faroese Communication Ability: Effective Voip Network Technician Required: No Beliefs That Will Affect Care: None marital status: Single Current Living Situation: Parent Other Information That Helps Us Care for You: No Feels Safe at Home: Yes Safety Concerns: Feels Safe At This Time Smoking Status: Never smoker Second Hand Exposure: No ; Hx Alcohol Use: No Hx Substance Use: No Review of Systems A total of 10 systems reviewed and were otherwise negative Physical Exam Vital Signs Vital Signs - 24 hr 01/24/20 00:53 01/24/20 01:13 01/24/20 01:30 Temperature 37.6 C H Temperature Source Oral Pulse Rate 88 97 H 99 H Pulse Rate from SpO2 Sensor 97 H 101 H Respiratory Rate 18 24 24 Respiratory Effort / Characteristics Non-Labored Spontaneous Respiratory Depth Normal Respiratory Pattern Regular Blood Pressure 159/97 H 132/95 153/93 H Blood Pressure Mean 117 104 107 Blood Pressure Position Lying Pulse Oximetry 97 99 99 Oxygen Delivery Method Room Air Room Air Room Air Sepsis Recent Fever Within 48 Hours No Sepsis Action Taken by Nursing No Action Required 01/24/20 02:45 01/24/20 03:00 01/24/20 03:30 Temperature 36.9 C Temperature Source Pulse Rate 85 86 94 H Pulse Rate from SpO2 Sensor 86 88 94 H Respiratory Rate 19 22 21 Respiratory Effort / Characteristics Respiratory Depth Respiratory Pattern Blood Pressure 134/75 128/70 124/71 Blood Pressure Mean 84 90 94 Blood Pressure Position Pulse Oximetry 98 98 96 Oxygen Delivery Method Room Air Sepsis Recent Fever Within 48 Hours Sepsis Action Taken by Nursing 01/24/20 03:31 Temperature Temperature Source Pulse Rate 88 Pulse Rate from SpO2 Sensor 88 Respiratory Rate 24 Respiratory Effort / Characteristics Respiratory Depth Respiratory Pattern Blood Pressure Blood Pressure Mean Blood Pressure Position Pulse Oximetry 97 Oxygen Delivery Method Sepsis Recent Fever Within 48 Hours Sepsis Action Taken by Nursing VITALS: Vitals are noted on the nurse's note and reviewed by myself. Vital signs stable. GENERAL: Well-developed, well-nourished, white female, who is mildly uncomfortable appearing but not toxic. HEAD: Normocephalic atraumatic. EARS: External ear normal. External auditory canals clear, tympanic membranes pearly cortes without erythema or effusion bilaterally. EYES: Pupils equal round and reactive to light and accommodation. Conjunctivae without injection, sclerae without icterus. Extraocular movements intact. NOSE: Patent, turbinates without inflammation or discharge. MOUTH: Mucous membranes moist. Tonsils are not enlarged. Pharynx without erythema, blood, or exudate. Uvula midline. Airway patent. NECK: Supple without nuchal rigidity. No lymphadenopathy. No thyromegaly. Cer vical spine is nontender. HEART: Regular rate and rhythm without murmurs gallops or rubs. LUNGS: Clear to auscultation bilaterally without wheezes, rales or rhonchi. No retractions or accessory muscle use. ABDOMEN: Positive normal bowel sounds x 4. Soft with generalized tenderness that seems to be worse in the epigastric region. No CVA tenderness. Abdomen is consistent with .. MUSCULOSKELETAL: No muscle atrophy, erythema, or edema noted. Full range of motion in all extremities. No calf tenderness or palpable cord NEURO: Patient was alert and oriented to person place and time. CN II through XII grossly intact. SKIN: The skin was without rashes, erythema, edema, or bruising. Capillary refill less than 2 seconds. Course Administered Medications Butorphanol Tartrate (Stadol) 1 mg IV Q3HWA PRN PRN Reason: Pain Stop: 02/23/20 06:06 Last Admin: 01/24/20 06:26 Dose: 1 mg Documented by: [id number] Cosigned by: [id number] Docusate Sodium (Colace) 100 mg PO BID [place] Stop: 02/23/20 08:59 Last Admin: 01/24/20 09:12 Dose: 100 mg Documented by: [id number] Enoxaparin Sodium (Lovenox) 120 mg SQ Q12 [place] Stop: 02/23/20 08:59 Last Admin: 01/24/20 21:09 Dose: 120 mg Documented by: [id number] Admin: 01/24/20 09:12 Dose: 120 mg Documented by: [id number] Ferrous Sulfate (Feosol) 325 mg PO QAM [place] Stop: 02/23/20 08:59 Last Admin: 01/24/20 09:12 Dose: 325 mg Documented by: [id number] Lactated Ringer's (Lr) 1,000 mls @ 125 mls/hr IV .Q8H PRN; Protocol PRN Reason: L&D Protocol Stop: 02/23/20 04:37 Last Admin: 01/24/20 16:09 Dose: 125 mls/hr Documented by: [id number] Infusion: 01/24/20 15:35 Dose: 125 mls/hr Documented by: [id number] Infusion: 01/24/20 14:50 Dose: 125 mls/hr Documented by: [id number] Admin: 01/24/20 07:35 Dose: 125 mls/hr Documented by: [id number] Infusion: 01/24/20 07:00 Dose: 125 mls/hr Documented by: [id number] Admin: 01/24/20 05:58 Dose: 999 mls/hr Documented by: [id number] Promethazine HCl 25 mg/ Sodium (Chloride) 51 mls @ 204 mls/hr IV Q6H PRN PRN Reason: Nausea And Vomiting Stop: 02/23/20 04:43 Last Infusion: 01/24/20 05:21 Dose: 0 mls/hr Documented by: [id number] Admin: 01/24/20 05:06 Dose: 204 mls/hr Documented by: [id number] Insulin Aspart (Novolog Flexpen) 0 units SC ACHS [facility] Stop: 02/23/20 12:44 Last Admin: 01/24/20 17:16 Dose: 7 units Documented by: [id number] Cosigned by: [id number] Admin: 01/24/20 12:56 Dose: 13 units Documented by: [id number] Cosigned by: [id number] Insulin Glargine (Lantus Solostar Pen) 35 units SQ HS [facility] Stop: 02/23/20 20:59 Last Admin: 01/24/20 21:05 Dose: 35 units Documented by: [id number] Cosigned by: [id number] Levothyroxine Sodium (Synthroid) 25 mcg PO DAILYBB [facility] Stop: 02/23/20 06:29 Last Admin: 01/24/20 06:47 Dose: 25 mcg Documented by: [id number] [facility]oprazole [facility]ix) [facility] Stop: 02/23/20 11:44 Last Admin: 01/24/20 13:00 Dose: 40 mg Documented by: [id number] Prenat Multivit/Russell/Iron/Folic Ac ( Vitamin) [address] [facility] Stop: 02/23/20 08:59 Last Admin: 01/24/20 09:12 Dose: 1 tab Documented by: [id number] Discontinued Medications Betamethasone Acet/Betameth SodPhos (Celestone Soluspan) 12 mg IM NOW STA Stop: 01/24/20 04:39 Last Admin: 01/24/20 05:15 Dose: 12 mg Documented by: [id number] Famotidine (Pepcid) 20 mg PO NOW STA Stop: 01/24/20 04:53 Last Admin: 01/24/20 13:09 Dose: Not Given Documented by: [id number] Sodium Chloride (Nss 1000ml) 1,000 mls @ 999 mls/hr IV .Q1H1M [place] Stop: 01/24/20 02:00 Last Infusion: 01/24/20 02:51 Dose: 0 mls/hr Documented by: [id number] Admin: 01/24/20 01:23 Dose: 999 mls/hr Documented by: [id number] Acetaminophen (Ofirmev) 1,000 mg in 100 mls @ 400 mls/hr IV NOW STA Stop: 01/24/20 01:13 Last Infusion: 01/24/20 01:59 Dose: 0 mls/hr Documented by: [id number] Admin: 01/24/20 01:23 Dose: 400 mls/hr Documented by: [id number] Famotidine (Pepcid 20mg Iv Push) 20 mg in 5 mls @ 2.5 mls/min IV NOW STA Stop: 01/24/20 04:11 Last Admin: 01/24/20 04:17 Dose: 2.5 mls/min Documented by: [id number] Insulin Aspart (Novolog Flexpen) 30 units SC ONE ONE Stop: 01/24/20 09:46 Last Admin: 01/24/20 10:06 Dose: 30 units Documented by: [id number] Cosigned by: [id number] Ondansetron HCl (Zofran) 4 mg IV NOW STA Stop: 01/24/20 01:00 Last Admin: 01/24/20 01:23 Dose: 4 mg Documented by: [id number] Promethazine HCl (Phenergan) Confirm Administered Dose 25 mg .ROUTE .STK-MED ONE Stop: 01/24/20 04:58 Last Admin: 01/24/20 05:06 Dose: Not Given Documented by: [id number] Promethazine HCl (Phenergan) Confirm Administered Dose 25 mg IV .STK-MED ONE Stop: 01/24/20 04:58 Last Admin: 01/24/20 05:06 Dose: Not Given Documented by: [id number] Medical Decision Making Differential Diagnosis Differential diagnosis: Etiologies such as biliary colic, cholecystitis, hepatitis, pancreatitis, cardiac disease, pancreatitis, gastritis, peptic ulcer disease, appendicitis, cystitis, diverticulitis, mesenteric ischemia, inflammatory bowel disease, ileus, bowel obstruction, testicular/adnexal torsion, aortic pathology, shingles, as well as others were considered Laboratory Data Result diagrams: 01/24/20 12:11 01/24/20 12:11 Lab Results 01/24/20 01/24/20 01/24/20 Range/Units 01:00 01:00 01:00 WBC 12.63 H (4.8-10.8) K/uL RBC 3.19 L (4.2-5.4) M/uL Hgb 9.5 L (12.0-16.0) g/dL Hct 29.0 L (37-47) % MCV 90.9 (80-100) fL MCH 29.8 (25-34) pg MCHC 32.8 (32-36) g/dL RDW Std Deviation 63.1 H (36.4-46.3) fL RDW Coeff of Rosita 19.1 H (11.5-14.5) % Plt Count 157 (130-400) K/uL MPV 11.1 H (7.4-10.4) fL Immature Gran % (Auto) 4.6 % Neut % (Auto) 82.0 % Lymph % (Auto) 6.7 % [place] % (Auto) 5.9 % Eos % (Auto) 0.6 % Baso % (Auto) 0.2 % Immature Gran # (Auto) 0.58 H (0.00-0.02) K/uL Neut # (Auto) 10.36 H (1.4-6.5) K/uL Lymph # (Auto) 0.85 L (1.2-3.4) K/uL [place] # (Auto) 0.75 H (0.11-0.59) K/uL Eos # (Auto) 0.07 (0-0.5) K/uL Baso # (Auto) 0.02 (0-0.2) K/uL Absolute Nucleated RBC 0.03 H (0-0) K/uL Nucleated RBC % (auto) 0.3 % Polychromasia 1+ Sodium 137 (136-145) mmol/L Potassium 4.1 (3.5-5.1) mmol/L Chloride 108 H (98-107) mmol/L Carbon Dioxide 24 (21-32) mmol/L Anion Gap 5.0 (3-11) BUN 18 (7-18) mg/dl Creatinine 0.75 (0.6-1.2) mg/dl Est Cr Clr Drug Dosing Not Reportable Est GFR ( Amer) 126.6 Est GFR (Non-Af Amer) 109.2 BUN/Creatinine Ratio 24.4 H (10-20) Glucose 87 (70-99) mg/dl Calcium 8.8 (8.5-10.1) mg/dl Total Bilirubin 0.5 (0.2-1) mg/dl AST 78 H (15-37) U/L ALT 140 H (12-78) U/L Alkaline Phosphatase 146 H (45-117) U/L Total Protein 7.4 (6.4-8.2) gm/dl Albumin 2.7 L (3.4-5.0) gm/dl Globulin 4.7 H (2.5-4.0) gm/dl Albumin/Globulin Ratio 0.6 L (0.9-2) Urine Color Urine Appearance (Clear) Urine pH (4.5-7.5) Ur Specific [place] (1.000-1.030) Urine Protein (Negative) Urine Glucose (UA) (Negative) Urine Ketones (Negative) Urine Blood (Negative) Urine Nitrite (Negative) Urine Bilirubin (Negative) Urine Urobilinogen (Negative) Ur Leukocyte Esterase (Negative) Urine WBC (Auto) (0-5) /hpf Urine RBC (Auto) (0-4) /hpf U Hyaline Cast (Auto) (0-5) /lpf U Epithel Cells (Auto) (0-5) /lpf Urine Bacteria (Auto) (Negative) Urine Opiates Screen (Neg) Ur Methadone, Qual (Neg) Urine Barbiturates (Neg) Ur Phencyclidine (PCP) (Neg) U Amphetamin/Meth Scrn (Neg) MDMA (Ecstasy) Screen (Neg) U Benzodiazepines Scrn (Neg) Ur Cocaine Metabolite (Neg) U Marijuana (THC) Screen (Neg) Hep Bs Antigen Neg (Neg) Hepatitis C Antibody Neg (Neg) Monoscreen (Negative) Influenza Type A Ag (Neg) Influenza Type B Ag (Neg) 01/24/20 01/24/20 01/24/20 Range/Units 01:00 01:10 01:14 WBC (4.8-10.8) K/uL RBC (4.2-5.4) M/uL Hgb (12.0-16.0) g/dL Hct (37-47) % MCV (80-100) fL MCH (25-34) pg MCHC (32-36) g/dL RDW Std Deviation (36.4-46.3) fL RDW Coeff of Rosita (11.5-14.5) % Plt Count (130-400) K/uL MPV (7.4-10.4) fL Immature Gran % (Auto) % Neut % (Auto) % Lymph % (Auto) % [place] % (Auto) % Eos % (Auto) % Baso % (Auto) % Immature Gran # (Auto) (0.00-0.02) K/uL Neut # (Auto) (1.4-6.5) K/uL Lymph # (Auto) (1.2-3.4) K/uL [place] # (Auto) (0.11-0.59) K/uL Eos # (Auto) (0-0.5) K/uL Baso # (Auto) (0-0.2) K/uL Absolute Nucleated RBC (0-0) K/uL Nucleated RBC % (auto) % Polychromasia Sodium (136-145) mmol/L Potassium (3.5-5.1) mmol/L Chloride (98-107) mmol/L Carbon Dioxide (21-32) mmol/L Anion Gap (3-11) BUN (7-18) mg/dl Creatinine (0.6-1.2) mg/dl Est Cr Clr Drug Dosing Est GFR ( Amer) Est GFR (Non-Af Amer) BUN/Creatinine Ratio (10-20) Glucose (70-99) mg/dl Calcium (8.5-10.1) mg/dl Total Bilirubin (0.2-1) mg/dl AST (15-37) U/L ALT (12-78) U/L Alkaline Phosphatase (45-117) U/L Total Protein (6.4-8.2) gm/dl Albumin (3.4-5.0) gm/dl Globulin (2.5-4.0) gm/dl Albumin/Globulin Ratio (0.9-2) Urine Color Yellow Urine Appearance Cloudy A (Clear) Urine pH 5.0 (4.5-7.5) Ur Specific [place] 1.020 (1.000-1.030) Urine Protein Negative (Negative) Urine Glucose (UA) Negative (Negative) Urine Ketones Negative (Negative) Urine Blood Negative (Negative) Urine Nitrite Negative (Negative) Urine Bilirubin Negative (Negative) Urine Urobilinogen Negative (Negative) Ur Leukocyte Esterase 1+ H (Negative) Urine WBC (Auto) 10-30 H (0-5) /hpf Urine RBC (Auto) 0-4 (0-4) /hpf U Hyaline Cast (Auto) 0 (0-5) /lpf U Epithel Cells (Auto) 10-20 H (0-5) /lpf Urine Bacteria (Auto) 1+ H (Negative) Urine Opiates Screen (Neg) Ur Methadone, Qual (Neg) Urine Barbiturates (Neg) Ur Phencyclidine (PCP) (Neg) U Amphetamin/Meth Scrn (Neg) MDMA (Ecstasy) Screen (Neg) U Benzodiazepines Scrn (Neg) Ur Cocaine Metabolite (Neg) U Marijuana (THC) Screen (Neg) Hep Bs Antigen (Neg) Hepatitis C Antibody (Neg) Monoscreen Negative (Negative) Influenza Type A Ag Neg for Influ A (Neg) Influenza Type B Ag Neg for Influ B (Neg) 01/24/20 Range/Units 01:14 WBC (4.8-10.8) K/uL RBC (4.2-5.4) M/uL Hgb (12.0-16.0) g/dL Hct (37-47) % MCV (80-100) fL MCH (25-34) pg MCHC (32-36) g/dL RDW Std Deviation (36.4-46.3) fL RDW Coeff of Rosita (11.5-14.5) % Plt Count (130-400) K/uL MPV (7.4-10.4) fL Immature Gran % (Auto) % Neut % (Auto) % Lymph % (Auto) % [place] % (Auto) % Eos % (Auto) % Baso % (Auto) % Immature Gran # (Auto) (0.00-0.02) K/uL Neut # (Auto) (1.4-6.5) K/uL Lymph # (Auto) (1.2-3.4) K/uL [place] # (Auto) (0.11-0.59) K/uL Eos # (Auto) (0-0.5) K/uL Baso # (Auto) (0-0.2) K/uL Absolute Nucleated RBC (0-0) K/uL Nucleated RBC % (auto) % Polychromasia Sodium (136-145) mmol/L Potassium (3.5-5.1) mmol/L Chloride (98-107) mmol/L Carbon Dioxide (21-32) mmol/L Anion Gap (3-11) BUN (7-18) mg/dl Creatinine (0.6-1.2) mg/dl Est Cr Clr Drug Dosing Est GFR ( Amer) Est GFR (Non-Af Amer) BUN/Creatinine Ratio (10-20) Glucose (70-99) mg/dl Calcium (8.5-10.1) mg/dl Total Bilirubin (0.2-1) mg/dl AST (15-37) U/L ALT (12-78) U/L Alkaline Phosphatase (45-117) U/L Total Protein (6.4-8.2) gm/dl Albumin (3.4-5.0) gm/dl Globulin (2.5-4.0) gm/dl Albumin/Globulin Ratio (0.9-2) Urine Color Urine Appearance (Clear) Urine pH (4.5-7.5) Ur Specific [place] (1.000-1.030) Urine Protein (Negative) Urine Glucose (UA) (Negative) Urine Ketones (Negative) Urine Blood (Negative) Urine Nitrite (Negative) Urine Bilirubin (Negative) Urine Urobilinogen (Negative) Ur Leukocyte Esterase (Negative) Urine WBC (Auto) (0-5) /hpf Urine RBC (Auto) (0-4) /hpf U Hyaline Cast (Auto) (0-5) /lpf U Epithel Cells (Auto) (0-5) /lpf Urine Bacteria (Auto) (Negative) Urine Opiates Screen Neg (Neg) Ur Methadone, Qual Neg (Neg) Urine Barbiturates Neg (Neg) Ur Phencyclidine (PCP) Neg (Neg) U Amphetamin/Meth Scrn Neg (Neg) MDMA (Ecstasy) Screen Neg (Neg) U Benzodiazepines Scrn Neg (Neg) Ur Cocaine Metabolite Neg (Neg) U Marijuana (THC) Screen Neg (Neg) Hep Bs Antigen (Neg) Hepatitis C Antibody (Neg) Monoscreen (Negative) Influenza Type A Ag (Neg) Influenza Type B Ag (Neg) Imaging Data Radiologist's Impression: US gallbladder CLINICAL HISTORY: +preg. Abd pain. Elevated lfts COMPARISON STUDY: 01/15/2020 FINDINGS: The pancreas appears sonographically normal. The gallbladder appears sonographically normal. There is no ductal dilatation. The common bile duct measures 5 mm. There is no right-sided hydronephrosis. There is a 6 mm echogenic focus within the right kidney. This is nonspecific but could represent an angiomyolipoma. There is a nonspecific 4 cm hypoechoic area within the left lobe of the liver. This cannot be further characterized. The liver is slightly heterogeneous in echotexture. IMPRESSION: 1. Ultrasonographically normal gallbladder 2. Slight hepatic heterogeneity. Nonspecific 4 cm hypoechoic area within the left lobe of the liver. This cannot be further characterized on ultrasound. 3. No evidence of ductal dilatation. US OB limited CLINICAL HISTORY: 29 years-old Female presenting with generalized abdominal pain in 31 weeks 4 days , no vaginal bleeding or cramping, . TECHNIQUE: Real-time grayscale and M-mode ultrasound imaging of the pelvis was performed using a transabdominal probe for a third trimester evaluation. COMPARISON: 09/24/2019. FINDINGS: Bladder: Normal. Uterus: Single live intrauterine . size metrics: 1. Head circumference 28.8 cm corresponding to a gestational age of 31 weeks 5 days. 2. Biparietal diameter 7.8 cm corresponding to gestational age 31 weeks 1 day. 3. Femur length 5.7 cm corresponding to an estimated gestational age 29 weeks 6 days. 4. Abdominal circumference 24.9 cm corresponding to an estimated gestational age 29 weeks 1 day. 5. Composite gestational age 30 weeks 1 day corresponding to an estimated date of delivery 04/02/2020, which is likely concordant with the reported gestational age of 31 weeks 4 days. heart rate: 154 beats per minute. Orientation: Cephalic presentation. Gestational sac shape: Normal configuration. Amniotic fluid volume: Borderline low amniotic fluid volume. TAMERA: 5.6 cm. Placenta: Anterior fundal placental implantation. Placental venous lakes suspected, which can be normal. No perigestational fluid to suggest hemorrhage. Cervix: Long and closed. Cervical length: 3.8 cm. Right adnexa: Right ovary: Not visualized. Left adnexa: Left ovary: Not visualized. Other: No large volume free fluid. IMPRESSION: Single live intrauterine third trimester with borderline low amniotic fluid volume raising concern for oligohydramnios. Recommend close clinical and imaging follow-up. MDM Narrative Physical exam and history were performed. Nursing notes, EMR, and Medication List were personally reviewed. Patient appears to have abdominal pain bringing her to the ER. On exam she appears ill but not toxic. IV access was established and labs were obtained. She was hydrated with normal saline and given IV Zofran and IV Tylenol for comfort. and right upper quadrant ultrasounds were performed. The patient's blood work is as above and was reviewed. She is mildly anemic, which may be physiologic from . Her white blood cell count is mildly elevated at 12.6 here in the ER. Lipase is not diagnostic. She does have an elevation of her transaminases. Urine without gross evidence of infection. Ultrasounds were reviewed by myself and radiology, and do not show obvious acute findings for the patient symptoms. Overall I do have concern as the patient does have notably elevated LFTs in the context of . Her platelet count appears normal at 157 and she does not have protein in her urine. The patient continues to have pain despite treatment here in the ER. Because of this the case was discussed with the on-call COMBINER OPERATOR who recommended IV Pepcid. COMBINER OPERATOR will evaluate the patient here in the ER. Please see their dictation for further patient course, plan, and disposition. The chart was completed utilizing [employer] Speech Voice Recognition Software. Grammatical errors, random word insertions, pronoun errors, and incomplete sentences are an occasional consequence of this system due to software limitations, ambient noise, and hardware issues. Any formal questions or concerns about the content, text, or information contained within the body of this dictation should be directly addressed to the provider for clarification. . Impression & Plan Abdominal pain affecting , Nausea and vomiting, Elevated LFTs Discharge Plan Visit Data *Final* Discharge Date/Time: 01/24/20 05:31 Chief Complaint: Abdominal Pain Stated Complaint: ABDOMINAL PAIN/NAUSEA/VOMITING Other Complaint: Vomiting ED Provider: Era Hickey ED Midlevel Provider: Benton Richards Discharge Problem: Abdominal pain affecting , Nausea and vomiting, Elevated LFTs Patient Disposition: Admitted As Inpatient Discharge Instructions Interventions: ED Discharge Assessment Last Done: 01/24/20 05:31 Discharge Problem: Nausea and vomiting Qualifiers: Vomiting type: unspecified Vomiting Intractability: non-intractable Qualified Code(s): R11.2 - Nausea with vomiting, unspecified
[2020-01-25 12:29] LABS: Hepatitis A Antibody IgM NON-REACTIVE (NON-REACTIVE); Hepatitis B Core Antibody IgM NON-REACTIVE (NON-REACTIVE)
[2020-01-28 19:00] LABS: Albumin 2.6 g/dL (3.8-4.8); Alpha 1 Antitrypsin >300 mg/dL (83-199); Alpha 1 Globulin 0.7 g/dL (0.2-0.3); Alpha 2 Globulin 0.7 g/dL (0.5-0.9); Anti Nuclear Antibody Screen POSITIVE (NEGATIVE); Beta-1-Globulin 0.4 g/dL (0.4-0.6); Beta-2-Globulin 0.3 g/dL (0.2-0.5); CMV IgG Antibody <0.60 U/mL; CMV IgM Antibody <30.00 AU/mL; Ceruloplasmin >66 mg/dL (18-53); Chenodeoxycholic Acid 0.7 umol/L (< OR = 3.1); Cholic Acid 1.1 umol/L (< OR = 1.8); Deoxycholic Acid <0.5 umol/L (< OR = 2.4); Epstein Barr Virus Early Ag Ab <9.00 U/mL; Gamma Globulin 0.9 g/dL (0.8-1.7); Herpes Simplex Ab IgG-2 1.17 index; Monoclonal Protein Band 1 DNR g/dL (NONE DETECTED); Monoclonal Protein Band 2 DNR g/dL (NONE DETECTED); Monoclonal Protein Band 3 DNR g/dL (NONE DETECTED); Parvovirus IgG 7.6 (<0.9); Parvovirus IgM 0.1 (<0.9); Smooth Muscle Antibody POSITIVE (NEGATIVE); Total Bile Acids 1.9 umol/L (< OR = 6.8); Total Protein 5.6 g/dL (6.1-8.1)
--- NOTE | 2020-01-30 09:38 | Discharge Summary (DS) ---
CHIEF COMPLAINT: Epigastric pain. HISTORY OF PRESENT ILLNESS: This is a 29-year-old G1, P0, due date 03/23/2020 making her 31 weeks and 4 days on 01/24/2020. The patient's was complicated by history of antiphospholipid antibody syndrome and was on Lovenox, history of pregestational diabetes on insulin and history of a PE in the past. The patient was doing well, otherwise with the until 01/15/2020 when she was seen in the Emergency Room with epigastric pain. In the ER, she presented on 01/24/2020 again to the Emergency Room with similar complaints. Blood pressures were normal. PIH labs were normal except for persistent ALT and AST elevation. This had been unchanged from the prior ER visit, but was not any more elevated than that recorded visit earlier. Ultrasound of the gallbladder was normal. Ultrasound of the fetus showed TAMERA of 5.3. The patient was admitted to labor and delivery for further observation. During this time, GI was called to see patient. Several labs including viral serologies were ordered and are pending. In labor and delivery, the patient's strip was occasionally category 2. This was discussed with Dr. Valladares [facility] at [facility]. Decision was therefore made to transfer patient to [facility] for further care and evaluation. PAST MEDICAL HISTORY: History of PE, diabetes and antiphospholipid antibody syndrome. PAST SURGICAL HISTORY: The patient has had tonsillectomy and adenoids removed in the past. She has also had some dental surgery done in the past. SOCIAL HISTORY: Denies tobacco, drug or alcohol use. FAMILY HISTORY: Noncontributory. ALLERGIES: The patient had no known drug allergy. REVIEW OF SYSTEMS: Negative except as dictated in the HPI. PHYSICAL EXAMINATION: GENERAL: Well-developed, well-nourished white female. VITAL SIGNS: Blood pressure 110/80, pulse 80, respirations 20, temperature 36.4. LABS: As stated above were unremarkable except for elevated LFTs. CONDITION ON DISCHARGE: Stable. OPERATION: Elevated LFTs with epigastric pain, etiology unknown otherwise. DISCHARGE DIAGNOSIS: The patient is transferred to [facility]. PLAN ON DISCHARGE: The patient is given instructions as far as transfer is concern to [facility].
[2020-01-31 08:44] LABS: ANA Pattern Nuclear, Homogeneous; Smooth Muscle Ab Titer 1:20 titer (<1:20)
== END 2020-01-24 22:00 | disposition short-term general hospital (02) ==
LOC: ED 00:46 → 4S1 00:46

== ENCOUNTER 2020-02-06 14:19 | Observation (INO) ==
[2020-02-06 15:13] LABS: Hematocrit (blood only) 28.5 % (37-47); Hemoglobin 8.8 g/dL (12.0-16.0); Mean Corpuscular Hemoglobin 28.9 pg (25-34); Mean Corpuscular Hgb Conc 30.9 g/dL (32-36); Mean Corpuscular Volume 93.8 fL (80-100); Mean Platelet Volume 11.3 fL (7.4-10.4); Platelet Count 132 K/uL (130-400); RDW Coefficient of Variation 19.6 % (11.5-14.5); RDW Standard Deviation 65.3 fL (36.4-46.3); Red Blood Count 3.04 M/uL (4.2-5.4); White Blood Count 8.15 K/uL (4.8-10.8)
[2020-02-06] MEDS ORDERED: ONDANSETRON INJ 2 MG/ML 2 ML VIAL IV STA (15:14)
[2020-02-06] MEDS ORDERED: SODIUM CHLORIDE 0.9% 1000ML 1,000 ML IV ONE (15:14)
[2020-02-06] MEDS ORDERED: ACETAMINOPHEN 325 MG TAB PO STA (15:14)
--- NOTE | 2020-02-06 15:18 | Emergency Department Note ---
Impression & Plan Abdominal pain, Elevated troponin, Anemia ED Provider Note NAME: MADHU DARBY AGE: 29 SEX: F : 1990 ARRIVES VIA: Ambulance INFORMANT: Patient, ED PROVIDER(S): Robin Leavitt DO CHIEF COMPLAINT: Abdominal pain HPI: Patient is a 29-year-old female G1, P1 at 31 weeks and 4 days that presents the ER for epigastric abdominal pain. She has a past medical history of antiphospholipid on Lovenox with previous PEs. She was transferred to [facility] where she had a section the child has been in the NICU. She delivered on 26 January. She notes that the nausea vomiting and diarrhea started this morning. She vomited a total of 6 times and now has been dry heaving. She notes she has had a total of 5 loose watery stools as well with it. She initially notes that she has midsternal chest pain as well but notes that this may be related to her abdominal pain. She does note that the abdominal pain is in the epigastric region. She notes this does not feel like her previous pulmonary embolisms. She denies any swelling of her cast. No other exacerbating or remitting factors. Notes no one around her has been sick. ROS: See above HPI for pertinent positives & negatives. A total of 10 systems reviewed and were otherwise negative. PAST MEDICAL HISTORY:See Below PAST SURGICAL HISTORY:See Below FAMILY HISTORY:See Below SOCIAL HISTORY:See Below HOME MEDICATIONS:See Below ALLERGIES:See Below VITALS:See Below PHYSICAL EXAMINATION: GENERAL: Sitting up in bed, alert, well appearing, well nourished, no distress, non-toxic, obese talking in full sentences EYE EXAM: normal conjunctiva. PERRL and EOM's grossly intact. OROPHARYNX: no exudate, no erythema, lips, buccal mucosa, and tongue normal and mucous membranes are moist NECK: supple, no nuchal rigidity, no adenopathy, non-tender LUNGS: Clear to auscultation. Normal chest wall mechanics HEART: no murmurs, S1 normal and S2 normal ABDOMEN: abdomen soft, acutely tender in the epigastric region, normo-active bowel sounds, no masses, no rebound or guarding. BACK: Back is symmetrical on inspection and there is no deformity, no midline tenderness, no CVA tenderness. SKIN: no rashes and no bruising UPPER EXTREMITIES: upper extremities are grossly normal. LOWER EXTREMITIES: No pitting edema. Calves are equal bilateral NEURO EXAM: Normal sensorium, cranial nerves II-XII grossly intact, normal spe ech, no gross weakness of arms, no gross weakness of legs. MEDICAL DECISION MAKING: Patient is a 29-year-old female who presents the ER is a G1, P1 who delivered 10 days ago. Patient presents with epigastric abdominal pain, nausea, vomiting and diarrhea. Patient delivered with preeclampsia. Patient does have a history of previous PEs and is on Lovenox and has not missed any doses. She denies any true chest pain or new shortness of breath. IV established blood work was obtained shows no significant leukocytosis chronic anemia at 8.8. PTT was elevated at 90 as expected. BMP with a glucose of 108. Troponin was elevated at 0.064. Lipase was normal. CT of the chest shows chronic PEs per radiology. CT abdomen pelvis shows no acute pathology. Patient was updated bedside. Discussed with hospitalist. EKG was nondiagnostic. Uncertain of the true cause of the elevation in the troponin at this time however I do believe that this should be explored further as an inpatient. I do not believe that this consistent with ACS as she has no true chest pain and has no cardiac risk factors. Triage Nursing notes reviewed. Prior medical records reviewed Vital Signs: reviewed and remarkable for hypertension Differential diagnosis: Differential diagnoses includes but is not limited to acute coronary syndrome, myocardial infarction, pericarditis, pulmonary embolus, aortic dissection, pneumonia, pneumothorax, musculoskeletal, shingles, esophageal, gastritis, peptic ulcer disease, GERD, gallbladder disease, pancreatitis, small bowel obstruction, acute coronary syndrome, pericarditis, ischemic bowel, irritable bowel disease, irritable bowel syndrome, appendicitis, diverticulitis, malignancy, hernia, urinary tract infection, torsion, /ectopic (if female), perforation, trauma, infectious. ER treatment provided: See below Diagnostics interpreted by me: ECG: Sinus rhythm rate of 77 Normal axis No PVCs Normal QTC T WI in the septal leads Cardiac Monitoring: Sinus rhythm rate of 76 Laboratory studies: As stated above and show below. Imaging studies: CT Tawanna of the chest shows chronic PEs per radiology. CT abdomen pelvis shows no acute pathology. Consultation(s): [facility] ED COURSE: Procedures: none Critical Care: None Past Med/Surg History Social History Preferred Language: Kinyarwanda Communication Ability: Effective Burrer Hand Required: No Beliefs That Will Affect Care: None marital status: Single Current Living Situation: Parent Feels Safe at Home: Yes Smoking Status: Never smoker Second Hand Exposure: No ; Hx Alcohol Use: No Hx Substance Use: No Allergies Allergies Allergy/AdvReac Type Severity Reaction Status Date / Time No Known Allergies Allergy Verified 02/06/20 14:31 Home Meds Home Medications Medication Instructions Recorded Confirmed enoxaparin 120 mg SUBCUT Q12 09/24/19 02/06/20 PNV [id number] fumarate-FA 1 tab PO QAM 10/20/19 02/06/20 [] ferrous sulfate 325 mg PO QAM 10/20/19 02/06/20 levothyroxine 25 mcg PO QAM 10/20/19 02/06/20 acetaminophen [Tylenol Extra 500 mg PO Q6H PRN 01/15/20 02/06/20 Strength] insulin aspart U-100 [Novolog 30 unit SUBCUT TIDM 01/15/20 02/06/20 Flexpen U-100 Insulin] insulin glargine [Lantus Solostar 35 unit SUBCUT HS 01/15/20 02/06/20 U-100 Insulin] Previous Rx's Medication Instructions Recorded docusate sodium [Colace] 100 mg PO BID #60 cap 12/25/19 Results & Data (ED) Vital Signs Vital Signs - 24 hr 02/06/20 14:23 02/06/20 14:24 02/06/20 14:30 Pulse Rate 102 H 78 84 Pulse Rate [Right Finger] Pulse Rate from SpO2 Sensor 84 Pulse Rhythm Regular Pulse Strength Normal Respiratory Rate 24 20 Respiratory Effort / Characteristics Non-Labored Spontaneous Respiratory Depth Normal Respiratory Pattern Regular Blood Pressure 156/82 H 156/82 H 151/90 H Blood Pressure [Right Arm] Blood Pressure Mean 106 105 104 Blood Pressure Mean [Right Arm] Blood Pressure Position Sitting Blood Pressure Position [Right Arm] Pulse Oximetry 98 99 Oxygen Delivery Method Room Air Room Air Room Air Sepsis Recent Fever Within 48 Hours No Sepsis New/Unexplained Change in Mental Status No Sepsis Action Taken by Nursing No Action Required 02/06/20 14:32 02/06/20 14:40 02/06/20 14:50 Pulse Rate 80 75 92 H Pulse Rate [Right Finger] Pulse Rate from SpO2 Sensor 80 76 91 H Pulse Rhythm Pulse Strength Respiratory Rate 26 H 30 H 27 H Respiratory Effort / Characteristics Respiratory Depth Respiratory Pattern Blood Pressure Blood Pressure [Right Arm] Blood Pressure Mean Blood Pressure Mean [Right Arm] Blood Pressure Position Blood Pressure Position [Right Arm] Pulse Oximetry 99 100 100 Oxygen Delivery Method Room Air Room Air Room Air Sepsis Recent Fever Within 48 Hours Sepsis New/Unexplained Change in Mental Status Sepsis Action Taken by Nursing 02/06/20 15:00 02/06/20 15:10 02/06/20 15:21 Pulse Rate 81 87 88 Pulse Rate [Right Finger] Pulse Rate from SpO2 Sensor 81 83 Pulse Rhythm Pulse Strength Respiratory Rate 27 H 18 19 Respiratory Effort / Characteristics Respiratory Depth Respiratory Pattern Blood Pressure 155/85 H Blood Pressure [Right Arm] Blood Pressure Mean 111 Blood Pressure Mean [Right Arm] Blood Pressure Position Blood Pressure Position [Right Arm] Pulse Oximetry 99 99 Oxygen Delivery Method Room Air Room Air Room Air Sepsis Recent Fever Within 48 Hours Sepsis New/Unexplained Change in Mental Status Sepsis Action Taken by Nursing 02/06/20 15:23 02/06/20 15:24 02/06/20 15:30 Pulse Rate 83 79 Pulse Rate [Right Finger] 75 Pulse Rate from SpO2 Sensor 83 Pulse Rhythm Pulse Strength Respiratory Rate 20 21 26 H Respiratory Effort / Characteristics Non-Labored Spontaneous Respiratory Depth Normal Respiratory Pattern Regular Blood Pressure 146/76 H Blood Pressure [Right Arm] 146/76 H Blood Pressure Mean 107 Blood Pressure Mean [Right Arm] 99 Blood Pressure Position Blood Pressure Position [Right Arm] Lying Pulse Oximetry 98 99 Oxygen Delivery Method Room Air Room Air Room Air Sepsis Recent Fever Within 48 Hours Sepsis New/Unexplained Change in Mental Status Sepsis Action Taken by Nursing 02/06/20 15:40 02/06/20 15:50 02/06/20 16:00 Pulse Rate 77 85 89 Pulse Rate [Right Finger] Pulse Rate from SpO2 Sensor Pulse Rhythm Pulse Strength Respiratory Rate 29 H 31 H 22 Respiratory Effort / Characteristics Respiratory Depth Respiratory Pattern Blood Pressure Blood Pressure [Right Arm] Blood Pressure Mean Blood Pressure Mean [Right Arm] Blood Pressure Position Blood Pressure Position [Right Arm] Pulse Oximetry Oxygen Delivery Method Room Air Room Air Room Air Sepsis Recent Fever Within 48 Hours Sepsis New/Unexplained Change in Mental Status Sepsis Action Taken by Nursing 02/06/20 16:10 02/06/20 17:06 02/06/20 17:10 Pulse Rate 88 76 81 Pulse Rate [Right Finger] Pulse Rate from SpO2 Sensor 74 82 Pulse Rhythm Pulse Strength Respiratory Rate 25 H 17 21 Respiratory Effort / Characteristics Respiratory Depth Respiratory Pattern Blood Pressure 133/73 Blood Pressure [Right Arm] Blood Pressure Mean 78 Blood Pressure Mean [Right Arm] Blood Pressure Position Blood Pressure Position [Right Arm] Pulse Oximetry 98 97 Oxygen Delivery Method Room Air Room Air Room Air Sepsis Recent Fever Within 48 Hours Sepsis New/Unexplained Change in Mental Status Sepsis Action Taken by Nursing 02/06/20 17:20 02/06/20 17:30 Pulse Rate 66 94 H Pulse Rate [Right Finger] Pulse Rate from SpO2 Sensor 66 95 H Pulse Rhythm Pulse Strength Respiratory Rate 22 15 Respiratory Effort / Characteristics Respiratory Depth Respiratory Pattern Blood Pressure 147/84 H Blood Pressure [Right Arm] Blood Pressure Mean 101 Blood Pressure Mean [Right Arm] Blood Pressure Position Blood Pressure Position [Right Arm] Pulse Oximetry 95 99 Oxygen Delivery Method Room Air Room Air Sepsis Recent Fever Within 48 Hours Sepsis New/Unexplained Change in Mental Status Sepsis Action Taken by Nursing Laboratory Data Result diagrams: 02/06/20 14:50 02/06/20 14:50 Lab Results 02/06/20 02/06/20 02/06/20 Range/Units 14:50 14:50 14:50 WBC 8.15 (4.8-10.8) K/uL RBC 3.04 L (4.2-5.4) M/uL Hgb 8.8 L (12.0-16.0) g/dL Hct 28.5 L (37-47) % MCV 93.8 (80-100) fL MCH 28.9 (25-34) pg MCHC 30.9 L (32-36) g/dL RDW Std Deviation 65.3 H (36.4-46.3) fL RDW Coeff of Rosita 19.6 H (11.5-14.5) % Plt Count 132 (130-400) K/uL MPV 11.3 H (7.4-10.4) fL Immature Gran % (Auto) 2.7 % Neut % (Auto) 82.8 % Lymph % (Auto) 9.3 % Hartley % (Auto) 3.9 % Eos % (Auto) 1.2 % Baso % (Auto) 0.1 % Immature Gran # (Auto) 0.22 H (0.00-0.02) K/uL Neut # (Auto) 6.74 H (1.4-6.5) K/uL Lymph # (Auto) 0.76 L (1.2-3.4) K/uL Hartley # (Auto) 0.32 (0.11-0.59) K/uL Eos # (Auto) 0.10 (0-0.5) K/uL Baso # (Auto) 0.01 (0-0.2) K/uL Hypochromasia Present PT 13.1 H (9.0-12.0) Seconds INR 1.3 H (0.9-1.1) APTT 90.2 H* (21.0-31.0) Seconds PTT Ratio 3.2 Sodium 133 L (136-145) mmol/L Potassium 3.5 (3.5-5.1) mmol/L Chloride 107 (98-107) mmol/L Carbon Dioxide 24 (21-32) mmol/L Anion Gap 2.0 L (3-11) BUN 13 (7-18) mg/dl Creatinine 0.79 (0.6-1.2) mg/dl Est Cr Clr Drug Dosing 104.5 ml/min Est GFR ( Amer) 118.9 Est GFR (Non-Af Amer) 102.6 BUN/Creatinine Ratio 16.5 (10-20) Glucose 108 H (70-99) mg/dl POC Glucose (70-99) mg/dl Calcium 9.1 (8.5-10.1) mg/dl Total Bilirubin 0.4 (0.2-1) mg/dl AST 34 (15-37) U/L ALT 51 (12-78) U/L Alkaline Phosphatase 91 (45-117) U/L Troponin I 0.063 H* (0-0.045) ng/ml Total Protein 7.4 (6.4-8.2) gm/dl Albumin 3.0 L (3.4-5.0) gm/dl Globulin 4.4 H (2.5-4.0) gm/dl Albumin/Globulin Ratio 0.7 L (0.9-2) Lipase 127 (73-393) U/L 02/06/20 02/06/20 Range/Units 17:27 17:28 WBC (4.8-10.8) K/uL RBC (4.2-5.4) M/uL Hgb (12.0-16.0) g/dL Hct (37-47) % MCV (80-100) fL MCH (25-34) pg MCHC (32-36) g/dL RDW Std Deviation (36.4-46.3) fL RDW Coeff of Rosita (11.5-14.5) % Plt Count (130-400) K/uL MPV (7.4-10.4) fL Immature Gran % (Auto) % Neut % (Auto) % Lymph % (Auto) % Hartley % (Auto) % Eos % (Auto) % Baso % (Auto) % Immature Gran # (Auto) (0.00-0.02) K/uL Neut # (Auto) (1.4-6.5) K/uL Lymph # (Auto) (1.2-3.4) K/uL Hartley # (Auto) (0.11-0.59) K/uL Eos # (Auto) (0-0.5) K/uL Baso # (Auto) (0-0.2) K/uL Hypochromasia PT (9.0-12.0) Seconds INR (0.9-1.1) APTT (21.0-31.0) Seconds PTT Ratio Sodium (136-145) mmol/L Potassium (3.5-5.1) mmol/L Chloride (98-107) mmol/L Carbon Dioxide (21-32) mmol/L Anion Gap (3-11) BUN (7-18) mg/dl Creatinine (0.6-1.2) mg/dl Est Cr Clr Drug Dosing ml/min Est GFR ( Amer) Est GFR (Non-Af Amer) BUN/Creatinine Ratio (10-20) Glucose (70-99) mg/dl POC Glucose 55 L* 56 L* (70-99) mg/dl Calcium (8.5-10.1) mg/dl Total Bilirubin (0.2-1) mg/dl AST (15-37) U/L ALT (12-78) U/L Alkaline Phosphatase (45-117) U/L Troponin I (0-0.045) ng/ml Total Protein (6.4-8.2) gm/dl Albumin (3.4-5.0) gm/dl Globulin (2.5-4.0) gm/dl Albumin/Globulin Ratio (0.9-2) Lipase (73-393) U/L Administered Medications Ioversol (Optiray 320 125ml) 119 ml IV ONCE PRN PRN Reason: Interaction Checking Stop: 02/10/20 16:19 Last Admin: 02/06/20 16:21 Dose: 119 ml Documented by: [id number] Discontinued Medications Acetaminophen (Tylenol) 650 mg PO NOW STA Stop: 02/06/20 15:15 Last Admin: 02/06/20 15:22 Dose: 650 mg Documented by: [id number] Sodium Chloride (Nss 1000ml) 1,000 mls @ 999 mls/hr IV .Q1H1M ONE Stop: 02/06/20 16:14 Last Infusion: 02/06/20 16:24 Dose: 0 mls/hr Documented by: [id number] Admin: 02/06/20 15:22 Dose: 999 mls/hr Documented by: [id number] Ondansetron HCl (Zofran) 4 mg IV NOW STA Stop: 02/06/20 15:15 Last Admin: 02/06/20 15:21 Dose: 4 mg Documented by: [id number] Discharge Plan Visit Data Chief Complaint: Abdominal Pain Stated Complaint: Epigastric pain ED Provider: Robin Leavitt Discharge Problem: Abdominal pain, Elevated troponin, Anemia Forms Stand Alone Forms: [facility] Prescriptions Prescriptions: No Action docusate sodium [Colace] 100 mg capsule 100 mg PO BID Qty: 60 RF: 1 acetaminophen [Tylenol Extra Strength] 500 mg Tablet 500 mg PO Q6H PRN (Reason: Pain) RF: 0 insulin aspart U-100 [Novolog Flexpen U-100 Insulin] 100 unit/mL (3 mL) insulin pen 30 unit SUBCUT TIDM RF: 0 Lantus Solostar U-100 Insulin 100 unit/mL (3 mL) insulin pen 35 unit SUBCUT HS RF: 0 enoxaparin 100 mg/mL syringe 120 mg subcut Q12 RF: 0 levothyroxine 25 mcg tablet 25 mcg PO QAM RF: 0 ferrous sulfate 325 mg (65 mg iron) tablet 325 mg PO QAM RF: 0 PNV cmb#[id number]-ferrous fumarate-FA [] 28 mg iron- 800 mcg Tablet 1 tab PO QAM RF: 0 Discharge Problem: Abdominal pain Qualifiers: Abdominal location: unspecified location Qualified Code(s): R10.9 - Unspecified abdominal pain Anemia Qualifiers: Anemia type: unspecified type Qualified Code(s): D64.9 - Anemia, unspecified
[2020-02-06 15:25] LABS: BUN Creatinine Ratio 16.5 (10-20); Calcium 9.1 mg/dl (8.5-10.1); Creatinine Clr Calc Pharmacy 104.5 ml/min; Est GFR (African American) 118.9; Est GFR (Non-African American) 102.6; Potassium 3.5 mmol/L (3.5-5.1)
--- NOTE | 2020-02-06 15:31 | Electrocardiogram Report ---
Test Reason : Blood Pressure : / mmHG Vent. Rate : 077 BPM Atrial Rate : 077 BPM P-R Int : 148 ms QRS Dur : 100 ms QT Int : 372 ms P-R-T Axes : 054 082 037 degrees QTc Int : 420 ms Normal sinus rhythm Possible Left atrial enlargement Borderline ECG When compared with ECG of 20-OCT-2019 14:46, No significant change was found Confirmed by Alexander Mart ([id number]) on 02/06/2020 3:30:38 PM Referred By: REFERRED SELF Confirmed By:Alexander Mart
[2020-02-06 15:34] LABS: Basophils # (auto) 0.01 K/uL (0-0.2); Basophils % (auto) 0.1 %; Eosinophils % (auto) 1.2 %; Hypochromasia Present; Immature Granulocytes # (auto) 0.22 K/uL (0.00-0.02); Immature Granulocytes % (auto) 2.7 %; Lymphocytes # (auto) 0.76 K/uL (1.2-3.4); Lymphocytes % (auto) 9.3 %; Monocytes # (auto) 0.32 K/uL (0.11-0.59); Monocytes % (auto) 3.9 %; Neutrophils # (auto) 6.74 K/uL (1.4-6.5); Neutrophils % (auto) 82.8 %
[2020-02-06 15:40] LABS: Albumin Globulin Ratio 0.7 (0.9-2); Bilirubin,Total 0.4 mg/dl (0.2-1); Globulin 4.4 gm/dl (2.5-4.0); Total Protein 7.4 gm/dl (6.4-8.2); Troponin I 0.063 ng/ml (0-0.045)
--- NOTE | 2020-02-06 15:56 | XRay Report ---
XR chest 1V portable HISTORY: 29 years-old Female Chest Pain acute atypical chest pain COMPARISON: CTA chest 10/20/2019, chest radiograph 11/22/2016 TECHNIQUE: Portable AP view the chest FINDINGS: Increased size of the cardiac silhouette is unchanged. There is no pneumothorax, pleural effusion, ai rspace consolidation or overt pulmonary edema. Bones appear grossly intact. IMPRESSION: No acute process. ACT 112: Negative or not required by law. The above report was generated using voice recognition software. It may contain grammatical, syntax o r spelling errors. Electronically signed by: Jayden Petit M.D. 02/06/2020 3:55 PM
[2020-02-06 16:02] LABS: INR 1.3 (0.9-1.1); Partial Thromboplastin Ratio 3.2; Prothrombin Time 13.1 Seconds (9.0-12.0)
[2020-02-06 16:04] LABS: Partial Thromboplastin Time 90.2 Seconds (21.0-31.0)
[2020-02-06] MEDS ORDERED: OPTIRAY 320 125ml IV PRN (16:20)
--- NOTE | 2020-02-06 16:32 | CT Scan Report ---
CT angio chest PE protocol CT DOSE: 1462.51 mGy.cm HISTORY: Chest pain. Dyspnea. +trop previous Pes TECHNIQUE: Multiaxial CT images of the chest were performed following the intravenous administration of contrast to evaluate the pulmonary arteries. Maximal intensity projection images were also obtaine d. A dose lowering technique was utilized adhering to the principles of ALARA. COMPARISON STUDY: 10/20/2019 FINDINGS: Several chronic filling defects involving the pulmonary arterial vasculature bilaterally. T his is considered unchanged from the prior exam with these findings considered chronic. No evidence for new or interval pulmonary embolus. Lungs are grossly clear. Mild stable cardiomegaly. Small unchanged pericardial effusion IMPRESSION: . 1. No evidence for an acute pulmonary embolus. 2. Chronic pulmonary emboli unchanged from the prior study. 3. Lungs are generally clear. 4. Moderate cardiomegaly with a small unchanged pericardial effusion. ACT 112: Negative or not required by law. The above report was generated using voice recognition software. It may contain grammatical, syntax or spelling errors. Electronically signed by: Harsha Oneill M.D. 02/06/2020 4:31 PM
--- NOTE | 2020-02-06 16:36 | CT Scan Report ---
CT abd pelvis IV con only CT DOSE: HISTORY: Pain. Nausea. epigastric abd pain TECHNIQUE: Multiaxial CT images of the abdomen and pelvis were performed following the use of intrave nous contrast. A dose lowering technique was utilized adhering to the principles of ALARA. COMPARISON STUDY: 02/27/2016 FINDINGS: Minimal dependent basilar atelectasis. Diminished fatty infiltration of the liver compared to the prior study. Several hypodensities of the superior aspects of the right as well as left hepati c lobe statistically consistent with small cysts. Mild stable splenomegaly. Pancreas is considered unremarkable. Kidneys enhance uniformly. The bowel pattern overall is nonobstructive. Injection sites the subcutaneous fat over the anterior abdomen are again noted. Bowel pattern overall is nonobstructive. Endometrium is slightly complex and is similar as compared to the prior study. Uterus is slightly bul ky. No evidence for ovarian enlargement. IMPRESSION: 1. Mild stable splenomegaly. 2. No acute process in the abdomen or pelvis. 3. Mild uterine as well as endometrial prominence slightly increased in degree compared to the prior exam. ACT 112: Negative or not required by law. The above report was generated using voice recognition software. It may contain grammatical, syntax or spelling errors. Electronically signed by: Harsha Oneill M.D. 02/06/2020 4:35 PM
[2020-02-06] MEDS ORDERED: FAMOTIDINE 20MG/5ML IV PUSH IV STA (17:45)
--- NOTE | 2020-02-06 18:18 | History & Physical Report ---
Date of Service February 06, 2020 Assessment & Plan (1) Abdominal pain: (2) Vomiting and diarrhea: This is a 29-year-old female who has a significant PMH of antiphospholipid antibody syndrome, history of recurrent PE/DVT on long-term Lovenox, T2DM, bipolar disorder, depression, obesity, hypothyroidism and , anemia in who presents to ED secondary to epigastric pain, emesis and diarrhea x1 day. Recently hospitalized at [facility] [place] secondary to severe preeclampsia and ultimate at 31 weeks and discharged 01/31. Had been doing well after discharge until today when she developed N/V/D. No sick contacts, ? if possible gastroenteritis During pt recent admission prior to transfer to [facility] [place] she did have eval by GI due to elevated LFTS (which have now resolved) which revealed elevated GARY, anti ssm and others admit to PCU supportive care for now IVF +KCL 20meq x 1 L follow labs prn zofran Famotidine 20mg IV x 1 now repeat RUQ US to eval liver/gallbladder if sx persistent consider GI eval given recent work up ? if autoimmune etiology given underlying antiphospholipid antibody syn (3) Elevated troponin: Pt with elevated troponin 0.063 EKG reviewed, no ST or T wave changes noted She does complain of chest pain that seems to be a radiation of her epigastrium Nonetheless we will check troponins q6h, repeat EKG Obtain echocardiogram -there was mention on chest CT of small pericardial effusion this needs evaluated monitor on tele (4) Antiphospholipid antibody syndrome: hx of multiple DVT/PE in past on chronic lovenox therapy, currently on 120mg Q12hr 2/2 to will check anti Xa level as her dose may need to be reduced now she is post continue lovenox (5) Diabetes mellitus type 2 in obese: a1c 01/07/20 4.8 previously 06/21/19 had be 10.3 pt complaining of frequently low blood sugars and has been taking reduced amount of insulin Lantus/novolog per protocol - will reduce regimen and adjust accordingly a1c in a.m. (6) anemia: H&H stable at 8.8 and 28.5 Continue iron supplementation (7) Hypothyroidism: continue levothyroxine check TSH, last 01/24 6.98, now 0.593 (8) Obesity: BMI 37.2 encourage lifestyle modifications FULL CODE DVT ppx: continue lovenox Follow up: PCP Dr. Danny Melendez upon discharge Pt was seen and examined in collaboration with Dr. Loaiza, please see addendum History of Present Illness Chief Complaint: Epigastric pain, vomiting and diarrhea x1 day. Primary Care Provider: Melissa Melendez MD This is a 29-year-old female who has a significant PMH of antiphospholipid antibody syndrome, history of recurrent PE/DVT on long-term Lovenox, T2DM, bipolar disorder, depression, obesity, hypothyroidism and , anemia in who presents to ED secondary to epigastric pain, emesis and diarrhea x1 day. Of significance patient recently hospitalized at [facility] [place] secondary to severe preeclampsia and ultimate at 31 weeks. She has elevated LFTs, BP but no evidence of help syndrome. Her hospital course was mostly unremarkable and she was discharged on 01/31. She has been doing well until this morning when she woke up with severe epigastric pain, occasional radiation to right upper quadrant, constant but waxes and wanes in severity, described as cramping, made worse with inspiration, nothing improves symptoms, associated with 6 episodes of emesis and 6 or 7 episodes of diarrhea. Her last meal was last evening she had whaley and potatoes. Otherwise she has not had anything to eat today. No known sick contacts. She lives at home with her parents and sister. Denies known contact to positive COVID-19 patient. She does also complain of substernal chest pain that feel similar to epigastric pain, constant, described as cramping. She has hx of heartburn but this feels worse. Further denies fever, chills, sweats, lightheadedness, dizziness, syncope, palpitations, shortness of breath, hemoptysis, cough, hematemesis, melena, medic easier, dysuria, increased urgency or frequency with urination, hematuria. Appetite had been well until today. She is currently breast- feeding. In ED she remained hemodynamically stable. Lab work notable for H&H 8.8/28.5, , bun 13, cr 0.79, glucose 108, trop 0.063, LFT WNL. CXR revealed cardiomegaly but no acute cardiopulmonary process. Chest CTA revealed b/l chronic PE, moderate cardiomegaly with small pericardial effusion. In ED she received IVF and IV zofran with moderate relief in symptoms. Allergies Allergy/AdvReac Type Severity Reaction Status Date / Time No Known Allergies Allergy Verified 02/06/20 14:31 Home Medications Home Medications Medication Instructions Recorded Confirmed Type enoxaparin 120 mg SUBCUT Q12 09/24/19 02/06/20 History PNV cmb#95-ferrous fumarate-FA 1 tab PO QAM 10/20/19 02/06/20 History [] ferrous sulfate 325 mg PO QAM 10/20/19 02/06/20 History levothyroxine 25 mcg PO QAM 10/20/19 02/06/20 History docusate sodium [Colace] 100 mg PO BID #60 cap 12/25/19 02/06/20 Rx acetaminophen [Tylenol Extra 500 mg PO Q6H PRN 01/15/20 02/06/20 History Strength] insulin aspart U-100 [Novolog 30 unit SUBCUT TIDM 01/15/20 02/06/20 History Flexpen U-100 Insulin] insulin glargine [Lantus Solostar 35 unit SUBCUT HS 01/15/20 02/06/20 History U-100 Insulin] Past Med/Surg History Medical History Anemia affecting Depression Diabetes mellitus type 2 in obese (Chronic) Hearing loss (Chronic) Hepatic steatosis History of DVT (deep vein thrombosis) (Chronic) "LLE in 2009 and 12/2015" History of pulmonary embolism (Chronic) "06/2010- Multiple segmental and subsegmental pulmonary emboli bilaterally 01/09/16 CTA chest- Small bilateral pulmonary emboli" Hypothyroid in , antepartum Insomnia Learning disorder (Chronic) Obesity (Chronic) Red cell alloimmunization, maternal, antepartum Substernal chest pain (Acute) Subtherapeutic international normalized ratio (INR) (Acute) Surgical History History of dental surgery (Chronic) History of tonsillectomy and adenoidectomy (Chronic) Hx of tympanostomy tubes (Chronic) Family History Grandfather (Maternal) Coronary heart disease CABG Grandmother (Paternal) Coronary heart disease CABG Denies family history of Deep vein thrombosis Hypercoagulable state Social History Preferred Language: Urdu Communication Ability: Effective Senior Data Quality Analyst Required: No Beliefs That Will Affect Care: None marital status: Single Current Living Situation: Parent Other Information That Helps Us Care for You: No Feels Safe at Home: Yes Safety Concerns: Feels Safe At This Time Smoking Status: Never smoker Second Hand Exposure: No ; Hx Alcohol Use: No Hx Substance Use: No Review of Systems Review of Systems: All systems reviewed & are unremarkable except as noted in HPI & below Physical Exam Physical Exam: Constitutional: WD/WN, F, vitals as above, NAD, sitting up in bed, pleasant, conversing easily Head: Normocephalic, Atraumatic Eyes: PERRL, conjunctivae normal, anicteric sclerae ENMT: external ear and nose normal, oropharynx normal Neck: trachea midline, no thyromegaly normal visual inspection Respiratory: normal respiratory effort, lungs clear to auscultation, no wheeze, rales, rhonchi. Normal insp/exp effort, no accessory muscle use Cardiovascular: RRR, normal S1, splitting S2 LUSB, no murmur, no edema Vessels: no JVD or carotid bruit Chest: normal inspection of chest Abdomen: normal bowel sounds, soft, + tenderness to epigastrum and RUQ, no hepatosplenomegaly palpated, suprapubic incision well healed Musculoskeletal: no cyanosis or clubbing, extremities motor strength 5/5 Skin: no rashes, warm and dry normal turgor , numerous tattoos Neurologic: PERRL, EOMI, accommodation nl, no face palsy, no dysarthria CN's II-XI intact bilaterally and moves all extremities Psychiatric: A+Ox3, euthymic affect Lymphatic: no cervical or axillary lymphadenopathy : deferred Results & Data Results & Data ([facility]) Vital Signs (Past 12 Hours) Vital Signs Pulse Pulse Resp BP BP Pulse Ox 02/06/20 17:30 94 H 15 147/84 H 99 02/06/20 17:20 66 22 95 02/06/20 17:10 81 21 97 04/15/20 17:06 76 17 133/73 98 02/06/20 16:10 88 25 H 02/06/20 16:00 89 22 02/06/20 15:50 85 31 H 02/06/20 15:40 77 29 H 02/06/20 15:30 79 26 H 02/06/20 15:24 83 21 146/76 H 99 02/06/20 15:23 75 20 146/76 H 98 02/06/20 15:21 88 19 02/06/20 15:10 87 18 99 02/06/20 15:00 81 27 H 155/85 H 99 02/06/20 14:50 92 H 27 H 100 02/06/20 14:40 75 30 H 100 02/06/20 14:32 80 26 H 99 02/06/20 14:30 84 20 151/90 H 99 02/06/20 14:24 78 24 156/82 H 02/06/20 14:23 102 H 20 156/82 H 98 Laboratory Results Short CBC 02/06/20 Range/Units 14:50 WBC 8.15 (4.8-10.8) K/uL Hgb 8.8 L (12.0-16.0) g/dL Hct 28.5 L (37-47) % Plt Count 132 (130-400) K/uL BMP 02/06/20 14:50 Sodium 133 L Potassium 3.5 Chloride 107 Carbon Dioxide 24 BUN 13 Creatinine 0.79 Glucose 108 H Calcium 9.1 Cardiac Enzymes 02/06/20 Range/Units 14:50 Troponin I 0.063 H* (0-0.045) ng/ml Liver Function 02/06/20 Range/Units 14:50 Total Bilirubin 0.4 (0.2-1) mg/dl AST 34 (15-37) U/L ALT 51 (12-78) U/L Alkaline Phosphatase 91 (45-117) U/L Albumin 3.0 L (3.4-5.0) gm/dl Diagnostic Findings CXR: FINDINGS: Increased size of the cardiac silhouette is unchanged. There is no pneumothorax, pleural effusion, airspace consolidation or overt pulmonary edema. Bones appear grossly intact. IMPRESSION: No acute process. Abd/Pelvis CT: IMPRESSION: 1. Mild stable splenomegaly. Chest CTA: IMPRESSION: 1. No evidence for an acute pulmonary embolus. 2. Chronic pulmonary emboli unchanged from the prior study. Code Status & VTE Plan Code Status Full Code VTE Prophylaxis Plan VTE Prophylaxis will be ordered: Yes Supervising Physician Co-Signing Physician Notes I have seen and examined the patient and have discussed the case with the provider above. I agree with the assessment and plan as stated with the following exceptions. 29 yo F with APL syndrome who gave to her first child two weeks ago. She underwent emergency of her infant at 34 weeks gestation 2/2 pre-eclampsia. She has been feeling well post- and is breast-feeding. She states she and the baby are well. This morning she awoke with nausea, vomiting and watery diarrhea that came on acutely. She reported feeling well last night eating cereal for dinner and whaley for lunch (made by mom). No one else is ill. She denies taking OTC or herbal supplements outside of vitamin. Surgical scar healing well. Physical exam reveals normal cardiac and lung auscultation with severe TTP in RUQ and epigastric area. She has a normal respiratory effort and is mentating clearly. She reports some improvement in nausea with zofran but no improvement with her abdominal pain on APAP. Dilaudid and Tramadol PRN were ordered. K pad given for back pain. Diarrhea stopped prior to arrival and no further episodes. Suspect acute GI illness, and will plan to continue supportive care. CT a/p is within normal limits. Of concern is a mildly elevated trop, which is not rising, in the setting of a pericardial effusion. No recent echo noted to quantify this, which has been ordered. Possibly related to autoimmune disease vs infectious vs other. Cardiology consulted to weigh in. Also, would contact Dr. Uribe regarding her elevated factor XA level, in order to appropriately adjust her Lovenox dosage down prior to any discharge home. DO Josse (1) Abdominal pain Abdominal location: unspecified location Qualified Code(s): R10.9 - Unspecified abdominal pain
[2020-02-06 18:30] LABS: Magnesium 1.7 mg/dl (1.8-2.4); Thyroid Stimulating Hormone 0.593 uIu/ml (0.300-4.500)
[2020-02-06] MEDS ORDERED: ACETAMINOPHEN 500 MG TAB PO PRN (18:37)
[2020-02-06] MEDS ORDERED: DEXTROSE 50% 50 ML SYRINGE IV PRN (18:37)
[2020-02-06] MEDS ORDERED: GLUCOSE 10 TABS/TUBE PO PRN (18:37)
[2020-02-06] MEDS ORDERED: ONDANSETRON INJ 2 MG/ML 2 ML VIAL IV PRN (18:37)
[2020-02-06] MEDS ORDERED: ALUMINUM/MAGNESIUM SUSP 30 ML UDC PO PRN (18:37)
[2020-02-06] MEDS ORDERED: GLUCAGON FOR INJ 1 MG VIAL SQ PRN (18:37)
[2020-02-06] MEDS ORDERED: ACETAMINOPHEN 325 MG TAB PO PRN (18:37)
[2020-02-06] MEDS ORDERED: CARBOHYDRATES FOR HYPOGLYCEMIA PO PRN (18:37)
[2020-02-06] MEDS ORDERED: GLUCOSE 40% GEL 15 GM TUBE PO PRN (18:37)
[2020-02-06] MEDS ORDERED: ACETAMINOPHEN 500 MG TAB ONE (18:42)
[2020-02-06] MEDS ORDERED: NSS + 20MEQ KCL 20 MEQ/1,000 ML BAG IV SCH (19:00)
[2020-02-06] MEDS ORDERED: MAGNESIUM SULFATE / D5W 1 GM/100 ML BAG IV ONE (19:15)
--- NOTE | 2020-02-06 19:37 | Ultrasound Report ---
US abdomen limited HISTORY: Pain. Nausea. RUQ pain. COMPARISON: CT abdomen and pelvis same date FINDINGS: Pancreas: The pancreas demonstrates a normal echotexture. Liver: Unremarkable. Gallbladder: No gallbladder wall thickening. No gallstones. CBD: 5 mm Right kidney: No hydronephrosis. IMPRESSION: No significant abnormality identified within the within the right upper quadrant. ACT 112: Negative or not required by law. The above report was generated using voice recognition software. It may contain grammatical, syntax or spelling errors. Electronically signed by: Harsha Oneill M.D. 02/06/2020 7:36 PM
[2020-02-06] MEDS ORDERED: ENOXAPARIN 100 MG/1ML SYR SQ SCH (20:00)
[2020-02-06] MEDS ORDERED: ONDANSETRON INJ 2 MG/ML 2 ML VIAL IV ONE (20:15)
[2020-02-06] MEDS: INSULIN ASPART 100 UNITS/ML 3 ML PEN SC SCH (20:50)
[2020-02-06] MEDS: INSULIN GLARGINE SOLOSTAR 100 UNITS/ML 3 ML PEN SC SCH (20:50)
[2020-02-06] MEDS: HYDROmorphone INJ 0.5 MG/0.5 ML SYR IV PRN (20:54)
[2020-02-06] MEDS: ENOXAPARIN INJ 120 MG/0.8 ML SYR SQ SCH (20:54)
[2020-02-06] MEDS: TRAMADOL HCL 50 MG TABLET PO PRN (22:57)
[2020-02-06] MEDS: MAGNESIUM SULFATE / D5W 1 GM/100 ML BAG IV SCH (22:57)
[2020-02-07] MEDS: MAGNESIUM SULFATE / D5W 1 GM/100 ML BAG IV SCH (00:35)
[2020-02-07] MEDS: HYDROmorphone INJ 0.5 MG/0.5 ML SYR IV PRN ×5 (01:34→21:34)
[2020-02-07 02:08] LABS: Basophils # (auto) 0.01 K/uL (0-0.2); Basophils % (auto) 0.1 %; Eosinophils % (auto) 1.2 %; Hematocrit (blood only) 24.9 % (37-47); Hemoglobin 7.8 g/dL (12.0-16.0); Immature Granulocytes # (auto) 0.18 K/uL (0.00-0.02); Immature Granulocytes % (auto) 2.2 %; Lymphocytes % (auto) 9.6 %; Mean Corpuscular Hemoglobin 29.3 pg (25-34); Mean Corpuscular Hgb Conc 31.3 g/dL (32-36); Mean Corpuscular Volume 93.6 fL (80-100); Mean Platelet Volume 10.9 fL (7.4-10.4); Monocytes # (auto) 0.44 K/uL (0.11-0.59); Monocytes % (auto) 5.3 %; Neutrophils # (auto) 6.77 K/uL (1.4-6.5); Neutrophils % (auto) 81.6 %; Platelet Count 120 K/uL (130-400); RDW Coefficient of Variation 19.9 % (11.5-14.5); Red Blood Count 2.66 M/uL (4.2-5.4)
[2020-02-07 02:31] LABS: Anisocytosis Present
[2020-02-07 02:32] LABS: Albumin Level 2.7 gm/dl (3.4-5.0); BUN Creatinine Ratio 15.7 (10-20); Calcium 8.2 mg/dl (8.5-10.1); Creatinine Clr Calc Pharmacy 137.6 ml/min; Est GFR (African American) 144.8; Est GFR (Non-African American) 124.9; Magnesium 2.7 mg/dl (1.8-2.4); Potassium 3.5 mmol/L (3.5-5.1)
[2020-02-07 02:34] LABS: Albumin Globulin Ratio 0.7 (0.9-2); Bilirubin,Total 0.4 mg/dl (0.2-1); Globulin 3.9 gm/dl (2.5-4.0); Total Protein 6.6 gm/dl (6.4-8.2)
[2020-02-07 05:55] LABS: Estimated Average Glucose 91 mg/dl; Hemoglobin A1C 4.8 % (4.5-5.6)
[2020-02-07] MEDS: LEVOTHYROXINE SODIUM 25 MCG TABLET PO SCH (06:23)
[2020-02-07] MEDS: ENOXAPARIN INJ 120 MG/0.8 ML SYR SQ SCH (07:47)
[2020-02-07] MEDS: INSULIN ASPART 100 UNITS/ML 3 ML PEN SC SCH ×4 (07:48→20:33)
[2020-02-07] MEDS: INSULIN GLARGINE SOLOSTAR 100 UNITS/ML 3 ML PEN SC SCH ×2 (07:48→20:33)
[2020-02-07] MEDS: FERROUS SULFATE 325 MG TAB PO SCH (07:49)
[2020-02-07] MEDS: PRENATAL VITAMIN 1 TAB PO SCH (07:50)
--- NOTE | 2020-02-07 11:51 | Hospitalist Progress Note ---
Date of Service February 07, 2020 Assessment & Plan (1) Vomiting and diarrhea: symptom has resolved liver USG /Ct abdomen/pelvis : No acute process in the abdomen or pelvis./no significant abnormality on right upper quadrant normal LFT's , lipase level ordered to advance diet to solid HYPONATREMIA : possibly due to poor PO intake , N/V ordered for IV fluid repeat BMP in AM (2) Antiphospholipid antibody syndrome: with hx of PE/DVT cont Lovenox therapeutic dose CTA of chest : 1. No evidence for an acute pulmonary embolus. 2. Chronic pulmonary emboli unchanged from the prior study. 3. Lungs are generally clear. 4. Moderate cardiomegaly with a small unchanged pericardial effusion. mild elevation to troponin , level remains stable no complain of chest pain , doubt it is due to any cardiac or pulm issues ECHO : normal LV function , EF no wall motion abnormality ok to transfer out oF PCU (3) anemia: hb 7.8 pt received 1 unit of PRBC tx at [facility] after her C section 1 week back pt reports of feeling dizzy and lightheaded ordered for iron study pt is continued with iron supplement repeat H&H in am (4) Obesity: BMI 37.2 encourage lifestyle modifications FULL CODE DVT ppx: continue lovenox Follow up: PCP Dr. Danny Melendez upon discharge Admission and Anticipated Discharge Date Admission Date: February 06, 2020 Subjective continues to experience rt upper quadrant and epigastric pain /discomfort no nausea did not had any bowel movement today no complain of chest pain or sob , no cough no fever or chills Review of Systems Review of Systems: All systems reviewed & are unremarkable except as noted in HPI & below Constitutional: + fatigue; no fever and no chills Respiratory: + wheezing; no cough, no dyspnea and no dyspnea on exertion Cardiovascular: no chest pain, no dyspnea, no orthopnea, no palpitations, no lightheadedness, no syncope and no edema Gastrointestinal: + abdominal pain (rt upper quadrant ); no nausea, no vomiting and no diarrhea/loose stools Physical Exam Constitutional: WD/WN, vitals as above + obese; no acute distress Eyes: PERRL, conjunctivae normal, anicteric sclerae ENMT: external ear and nose normal, oropharynx normal Neck: trachea midline, no thyromegaly Respiratory: normal respiratory effort, lungs clear to auscultation Cardiovascular: RRR, no murmur, no edema Gastrointestinal (Abdomen): Inspection/Auscultation: normal bowel sounds Percussion/Palpation: + abdomen tender (right upper quadrant ) and abdomen soft no flank pain Musculoskeletal: no cyanosis or clubbing, extremities motor strength 5/5 Skin: no rashes, warm and dry Neurologic: PERRL, EOMI, accommodation nl, no face palsy, no dysarthria Genitourinary: no CVA tenderness Results & Data Results & Data ([facility]) Vital Signs (Past 12 Hours) Vital Signs Temp Pulse Resp BP Pulse Ox 02/07/20 11:35 37.1 C 77 18 130/80 97 02/07/20 07:33 37.3 C 74 16 134/81 96 02/07/20 03:45 36.7 C 80 16 138/86 94
[2020-02-07] MEDS: TRAMADOL HCL 50 MG TABLET PO PRN ×2 (12:06→20:22)
[2020-02-07] MEDS: LACTATED RINGER'S 1,000 ML IV SCH ×2 (12:31→22:50)
[2020-02-07 13:00] LABS: Ferritin 214.8 ng/ml (8-388)
--- NOTE | 2020-02-07 17:23 | Electrocardiogram Report ---
Test Reason : Blood Pressure : / mmHG Vent. Rate : 073 BPM Atrial Rate : 073 BPM P-R Int : 148 ms QRS Dur : 100 ms QT Int : 394 ms P-R-T Axes : 039 096 046 degrees QTc Int : 434 ms Normal sinus rhythm Rightward axis Borderline ECG When compared with ECG of 06-FEB-2020 14:26, No significant change was found Confirmed by Alexander Mart ([id number]) on 02/07/2020 5:22:27 PM Referred By: REFERRED SELF Confirmed By:Alexander Mart
[2020-02-07] MEDS: ENOXAPARIN 100 MG/1ML SYR SQ SCH (20:21)
[2020-02-08] MEDS: HYDROmorphone INJ 0.5 MG/0.5 ML SYR IV PRN ×5 (01:33→16:37)
[2020-02-08] MEDS: TRAMADOL HCL 50 MG TABLET PO PRN ×2 (04:36→15:59)
[2020-02-08] MEDS: LEVOTHYROXINE SODIUM 25 MCG TABLET PO SCH (05:36)
[2020-02-08 07:56] LABS: Hematocrit (blood only) 25.2 % (37-47)
[2020-02-08] MEDS: ENOXAPARIN 100 MG/1ML SYR SQ SCH (07:59)
[2020-02-08] MEDS: FERROUS SULFATE 325 MG TAB PO SCH (08:01)
[2020-02-08] MEDS: PRENATAL VITAMIN 1 TAB PO SCH (08:01)
[2020-02-08] MEDS: INSULIN ASPART 100 UNITS/ML 3 ML PEN SC SCH ×2 (08:01→13:05)
[2020-02-08] MEDS: INSULIN GLARGINE SOLOSTAR 100 UNITS/ML 3 ML PEN SC SCH (08:02)
[2020-02-08 08:26] LABS: Est GFR (African American) 145.6; Potassium 3.8 mmol/L (3.5-5.1)
[2020-02-08 08:27] LABS: BUN Creatinine Ratio 16.5 (10-20); Calcium 8.5 mg/dl (8.5-10.1); Creatinine Clr Calc Pharmacy 147.2 ml/min; Est GFR (Non-African American) 125.6
[2020-02-08] MEDS: LACTATED RINGER'S 1,000 ML IV SCH (08:58)
--- NOTE | 2020-02-08 16:57 | Discharge Summary ---
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 Of significance patient recently hospitalized at [facility] [place] secondary to severe preeclampsia and ultimate at 31 weeks. She has elevated LFTs, BP but no evidence of help syndrome. Her hospital course was mostly unremarkable and she was discharged on 01/31. She has been doing well until this morning when she woke up with severe epigastric pain, occasional radiation to right upper quadrant, constant but waxes and wanes in severity, described as cramping, made worse with inspiration, nothing improves symptoms, associated with 6 episodes of emesis and 6 or 7 episodes of diarrhea. Her last meal was last evening she had whaley and potatoes. Otherwise she has not had anything to eat today. No known sick contacts. She lives at home with her parents and sister. Denies known contact to positive COVID-19 patient. She does also complain of substernal chest pain that feel similar to epigastric pain, constant, described as cramping. She has hx of heartburn but this feels worse. Further denies fever, chills, sweats, lightheadedness, dizziness, syncope, palpitations, shortness of breath, hemoptysis, cough, hematemesis, melena, medic easier, dysuria, increased urgency or frequency with urination, hematuria. Appetite had been well until today. She is currently breast- feeding. In ED she remained hemodynamically stable. Lab work notable for H&H 8.8/28.5, , bun 13, cr 0.79, glucose 108, trop 0.063, LFT WNL. CXR revealed cardiomegaly but no acute cardiopulmonary process. Chest CTA revealed b/l chronic PE, moderate cardiomegaly with small pericardial effusion. In ED she received IVF and IV zofran with moderate relief in symptoms. Principal Diagnosis Abdominal pain Discharge Exam Constitutional WD/WN, vitals as above + obese; no acute distress Eyes PERRL, conjunctivae normal, anicteric sclerae ENMT external ear and nose normal, oropharynx normal Neck trachea midline, no thyromegaly Respiratory normal respiratory effort, lungs clear to auscultation Cardiovascular RRR, no murmur, no edema Gastrointestinal (Abdomen) Inspection/Auscultation: normal bowel sounds Percussion/Palpation: + abdomen tender (right upper quadrant ) and abdomen soft Musculoskeletal no cyanosis or clubbing, extremities motor strength 5/5 Skin no rashes, warm and dry Neurologic PERRL, EOMI, accommodation nl, no face palsy, no dysarthria Genitourinary no CVA tenderness Discharge Data Allergies Allergy/AdvReac Type Severity Reaction Status Date / Time No Known Allergies Allergy Verified 02/06/20 14:31 Consultations 02/06/20 16:48 ED Decision to Admit Stat Ordered Studies 02/06/20 15:12 CT abd pelvis IV con only Stat 02/06/20 15:41 CT angio chest PE protocol Stat 02/06/20 18:37 US abdomen limited Routine Hospital Course (1) Vomiting and diarrhea: symptom has resolved liver USG /Ct abdomen/pelvis : No acute process in the abdomen or pelvis./no significant abnormality on right upper quadrant normal LFT's , lipase level tolerating solid diet HYPONATREMIA : resolved possibly due to poor PO intake , N/V given IV fluid (2) Antiphospholipid antibody syndrome: with hx of PE/DVT cont Lovenox therapeutic dose dose adjusted to 100 mg BID SC after discussing with [facility] CTA of chest : 1. No evidence for an acute pulmonary embolus. 2. Chronic pulmonary emboli unchanged from the prior study. 3. Lungs are generally clear. 4. Moderate cardiomegaly with a small unchanged pericardial effusion. mild elevation to troponin , level remains stable no complain of chest pain , doubt it is due to any cardiac or pulm issues ECHO : normal LV function , EF no wall motion abnormality (3) anemia: possibly due to post status pt received PRBC tx at [facility] after her C section 1 week back hb 7.8 -> improved > 8 ( given 1 unit of PRBC tx ) iron study : shows Iron def anemia pt is continued with iron supplement repeat H&H in am (4) Obesity: BMI 37.2 encourage lifestyle modifications FULL CODE DVT ppx: continue lovenox Follow up: Discharge home today PCP Dr. Danny Melendez upon discharge Total Time Total Time Spent Total Time Spent (In Minutes): 35 mins Total Time Includes: Discharge Planning and Medication Reconciliation Discharge Plan Discharge Items Patient Disposition: Home - Self-Care Reason For Visit: ABDOMINAL PAIN,ELEVATED TROPONIN Discharge Diagnosis: ABDOMINAL PAIN Activity: Resume your previous activity Non-emergency contact: Primary Care Provider Call non-emergency contact if: you have any medication questions Follow-up/Referrals: Melissa Hough MD [Primary Care Provider] - 02/13/20 10:00 am Diet: Regular Ambulatory Orders: Complete Blood Count no Diff (Routine) Timeframe: 20200211 Location: Determined by Patient Ordered By: Juanita Redd Attending Provider Instructions: REPEAT LAB WORK : COMPLETE BLOOD COUNT ON Tuesday02/11/20 LOVENOX DOSE REDUCED TO 100 MG TWICE DAILY PER COUMADIN CLNIC Pending Studies at Discharge: Yes Studies:: COMPLETE BLOOD COUNT Stand-Alone Forms: [facility] Evi, Smoking Cessation Medications and DC Order Prescriptions: New oxycodone 5 mg capsule 5 mg PO Q8H PRN (Reason: pain) Qty: 10 RF: 0 Continued docusate sodium [Colace] 100 mg capsule 100 mg PO BID Qty: 60 RF: 1 acetaminophen [Tylenol Extra Strength] 500 mg Tablet 500 mg PO Q6H PRN (Reason: Pain) RF: 0 insulin aspart U-100 [Novolog Flexpen U-100 Insulin] 100 unit/mL (3 mL) insulin pen 30 unit SUBCUT TIDM RF: 0 Lantus Solostar U-100 Insulin 100 unit/mL (3 mL) insulin pen 35 unit SUBCUT HS RF: 0 levothyroxine 25 mcg tablet 25 mcg PO QAM RF: 0 ferrous sulfate 325 mg (65 mg iron) tablet 325 mg PO QAM RF: 0 PNV cmb#95-ferrous fumarate-FA [] 28 mg iron- 800 mcg Tablet 1 tab PO QAM RF: 0 Changed enoxaparin 100 mg/mL syringe 100 mg subcut Q12 Qty: 0 RF: 0 Discharge Orders: Discharge Order (Routine); Ordered 02/08/20 Ordered By: Juanita Brown Admission Data Admit Date/Time: 02/06/20 17:17 Attending Provider: Juanita Brown Admit Provider: Nikki Loaiza Primary Care Provider: Melissa Hough Other Providers: Nikki Loaiza Other Interventions: Discharge Summary Assessment (RN) Last Done: 02/08/20 17:01 DC Date/Time DO NOT enter until pt leaves facility: 02/08/20 17:55
[2020-02-08 17:05] LABS: Appearance Urine Clear (Clear); Bacteria Urine Automated Negative (Negative); Bilirubin Urine Negative (Negative); Blood Urine 2+ (Negative); Color Urine Yellow; Epithelial Cell Urine Auto 20-30 /lpf (0-5); Glucose Urine UA Negative (Negative); Ketones Urine Negative (Negative); Leukocyte Esterase Urine Negative (Negative); Nitrite Urine Negative (Negative); Protein Urine Negative (Negative); RBC Urine Automated 0-4 /hpf (0-4); Specific Gravity Urine 1.018 (1.000-1.030); Urobilinogen Urine Negative (Negative); pH Urine 6.5 (4.5-7.5)
== END 2020-02-08 17:55 | disposition home or self-care (01) ==
LOC: ED 14:19 → 2S 14:19 → SUATTDRO 17:17 → 2S 18:08 → 2N 02-07 13:39

== ENCOUNTER 2020-12-20 19:22 | Observation (INO) ==
[2020-12-20] MEDS ORDERED: SODIUM CHLORIDE 0.9% 1000ML 1,000 ML IV ONE ×2 (19:27→19:42)
[2020-12-20] MEDS ORDERED: ACETAMINOPHEN 1,000 MG/100 ML VIAL IV STA (19:42)
--- NOTE | 2020-12-20 19:49 | Emergency Department Note ---
History of Present Illness General Chief complaint: Chest Pain Stated complaint: COVID +, CP, weakness Time Seen by Provider: 12/20/20 19:25 History of Present Illness Provider complaint: Fever, chest pain, weakness, Covid positive Onset (ago): day(s) 6 Maximum Pain Intensity: 5 Associated symptoms: + chest pain, + cough, + fever/chills, + headaches, + nausea/vomiting, + shortness of breath and + weakness; no seizure 30-year-old female who tested positive for COVID-19 presents emergency department for weakness, fever, headache, nausea, vomiting, chest pain, and difficulty breathing. Patient states she has a history of antiphospholipid syndrome and is on chronic Lovenox. Patient denies missing any doses. Patient denies hitting her head. Patient states she feels incredibly weak and felt like she was going to pass out. Patient denies passing out. Patient states that her cough is gotten worse. She reports increased nausea. No chance of per the patient. No hematuria or melena or hematochezia. Home Medications Medication Instructions Recorded Confirmed Type ferrous sulfate 325 mg PO QAM 10/20/19 12/20/20 History levothyroxine 25 mcg PO QAM 10/20/19 12/20/20 History Lantus Solostar U-100 Insulin 7 unit SUBCUT HS 01/15/20 12/20/20 History insulin aspart U-100 [Novolog 0 unit SUBCUT TIDM 01/15/20 12/20/20 History Flexpen U-100 Insulin] enoxaparin 100 mg SUBCUT Q12H 02/12/20 12/20/20 History famotidine 40 mg PO HS #30 tab 02/14/20 12/20/20 Rx metformin 1,000 mg PO BID 12/20/20 12/20/20 History Allergies Allergy/AdvReac Type Severity Reaction Status Date / Time No Known Allergies Allergy Verified 12/20/20 20:56 Past Med/Surg History Medical History (Updated 12/20/20 @ 22:26 by Elian North) Anemia affecting Depression Diabetes mellitus type 2 in obese Hearing loss Hepatic steatosis History of DVT (deep vein thrombosis) "LLE in 2009 and 12/2015" History of pulmonary embolism "06/2010- Multiple segmental and subsegmental pulmonary emboli bilaterally 01/09/16 CTA chest- Small bilateral pulmonary emboli" Hypothyroid in , antepartum Insomnia Learning disorder Obesity Red cell alloimmunization, maternal, antepartum Substernal chest pain Subtherapeutic international normalized ratio (INR) Surgical History History of dental surgery History of tonsillectomy and adenoidectomy Hx of tympanostomy tubes Family History Grandfather (Maternal) Coronary heart disease CABG Grandmother (Paternal) Coronary heart disease CABG Denies family history of Deep vein thrombosis Hypercoagulable state Social History Smoking Status: Never smoker Second Hand Exposure: No; Hx Alcohol Use: No Hx Substance Use: No Preferred Language: Swedish Communication Ability: Effective Living Coach Required: No Beliefs That Will Affect Care: None marital status: Single Current Living Situation: Parent Feels Safe at Home: Yes Assistive Devices: None Review of Systems A total of 10 systems reviewed and were otherwise negative Physical Exam Vital Signs Vital Signs - 24 hr 12/20/20 19:24 12/20/20 19:31 12/20/20 20:21 Temperature 39.4 C H Temperature Source Oral Pulse Rate 114 H Pulse Rate [Apical] Pulse Rate from SpO2 Sensor Respiratory Rate 24 Respiratory Effort / Characteristics Non-Labored Spontaneous Non-Labored Spontaneous SOB on Exertion Respiratory Depth Normal Normal Blood Pressure 101/68 Blood Pressure [Right Arm] Blood Pressure Mean 79 Blood Pressure Mean [Right Arm] Pulse Oximetry 96 94 Oxygen Delivery Method Room Air Room Air Room Air Oxygen Flow Rate 94 Sepsis Recent Fever Within 48 Hours Yes Sepsis New/Unexplained Change in Mental Status No Sepsis Action Taken by Nursing Physician Notified 12/20/20 21:16 12/20/20 21:19 12/20/20 21:58 Temperature Temperature Source Pulse Rate Pulse Rate [Apical] 107 H Pulse Rate from SpO2 Sensor 104 H Respiratory Rate 28 H 23 24 Respiratory Effort / Characteristics Non-Labored Spontaneous Short of Breath SOB on Exertion Respiratory Depth Blood Pressure 114/61 Blood Pressure [Right Arm] 118/79 Blood Pressure Mean 78 Blood Pressure Mean [Right Arm] 92 Pulse Oximetry 94 93 96 Oxygen Delivery Method Room Air Room Air Room Air Oxygen Flow Rate Sepsis Recent Fever Within 48 Hours Sepsis New/Unexplained Change in Mental Status Sepsis Action Taken by Nursing 12/20/20 21:59 Temperature 38.1 C H Temperature Source Oral Pulse Rate Pulse Rate [Apical] Pulse Rate from SpO2 Sensor Respiratory Rate Respiratory Effort / Characteristics Respiratory Depth Blood Pressure Blood Pressure [Right Arm] Blood Pressure Mean Blood Pressure Mean [Right Arm] Pulse Oximetry Oxygen Delivery Method Oxygen Flow Rate Sepsis Recent Fever Within 48 Hours Sepsis New/Unexplained Change in Mental Status Sepsis Action Taken by Nursing Physical Exam GENERAL: She is oriented to person, place, and time. She appears well-developed and well-nourished. She does not appear distressed. HENT: Exam performed. -Head: Normocephalic and atraumatic. -Right Ear: External ear normal. No mastoid tenderness. -Left Ear: External ear normal. No mastoid tenderness. -Mouth/Throat: The oropharynx is clear and moist. No trismus in the jaw. No dental abscesses or uvula swelling. No oropharyngeal exudate or tonsillar abscesses. EYES: Conjunctivae and EOM are normal. Pupils are equal, round, and reactive to light. Right eye exhibits no discharge. Left eye exhibits no discharge. No scleral icterus. NECK: Normal range of motion. Neck supple. No JVD present. No spinous process tenderness present. No carotid bruit present. No rigidity. No tracheal deviation and normal range of motion present. No Brudzinski's sign and no Kernig's sign noted. CV: Tachycardic rate, regular rhythm, normal heart sounds and intact distal pulses. There is no peripheral edema. Palpable radial pulses bue. PULM/CHEST: Breath sounds diminished bilaterally. ABD: The abdomen is soft. Bowel sounds are normal. She has no distension. No mass is present. There is no tenderness. There is no rebound, no guarding, no Carlos's sign and no tenderness at McBurney's point. Rovsig negative MUSC/SKEL: Normal range of motion. There is no peripheral edema, tenderness or deformity. LYMPH: No cervical adenopathy. NEURO: She is alert and oriented to person, place, and time. She has normal strength. No cranial nerve deficit or sensory deficit. Coordination and gait normal. GCS eye subscore is 4. GCS verbal subscore is 5. GCS motor subscore is 6. Cerebellar tests wnl. SKIN: Skin is warm and dry. She is not diaphoretic. PSYCH: She has a normal mood and affect. Behavior is normal. Judgment and thought content normal. Course Course 1924: The patient was evaluated in room B8. A complete history and physical exam was performed. Patient was seen in full airborne precautions. Patient was seen in N95's, gloves, gowns, face shield by myself and staff. Cardiac monitoring: An order was placed for continuous cardiac monitoring. The monitor shows a rate of 115 with sinus rhythm EMR reviewed. Patient was seen in the emergency department yesterday on 12/19. At that time the patient's labs showed a white blood cell count of 3.46, hemoglobin of 10.4. D-dimer was less than 190. Troponin was negative. Urinalysis was negative. Chest x-ray did not show any infiltrates and the patient was discharged home in a stable condition. 2209: Labs show leukopenia of 1.82. Yesterday patient's white blood cell count was greater than 3. Hemoglobin is also one-point lower at 9.3, 10.4 yesterday. Platelet count 130, 143 yesterday. Lactic acid and procalcitonin level within normal limits. Troponin within normal limits. Patient is having antibodies IgG and IgM to COVID. CTA of the chest showed no acute PE but did show chronic PEs. Patient was given her home dose of Lovenox in the emergency department. Given the patient's leukopenia, anemia, and relative thrombocytopenia, it was thought that the patient could be suffering from a tickborne illness. Patient does states she has pets, dogs and cats, but has not noticed any ticks on them. I did discuss the case with [facility] list Dr. Sanchez and both he and I agree that the patient should be admitted to the hospital. Anaplasmosis labs as well as peripheral smear have been ordered. Lyme screen has been ordered as well. I discussed switch antibiotics to give with Dr. Sanchez and both he and I felt it would be good to give the patient Rocephin as well as doxycycline IV. Dr. Sanchez also asked for ultrasound of bilateral lower extremities to be completed. Patient was made aware of the plan to move to the hospital and she is in agreement. Administered Medications Ceftriaxone Sodium (Rocephin) 1,000 mg in 50 mls @ 100 mls/hr IV NOW STA Stop: 12/20/20 22:36 Last Admin: 12/20/20 22:23 Dose: 100 mls/hr Documented by: Discontinued Medications Enoxaparin Sodium (Enoxaparin 100 Mg/1ml Syr) 100 mg SQ NOW ONE Stop: 12/20/20 22:00 Last Admin: 12/20/20 22:07 Dose: 100 mg Documented by: [id number] Sodium Chloride (Nss 1000ml) 1,000 mls @ 999 mls/hr IV .Q1H1M ONE Stop: 12/20/20 20:27 Last Admin: 12/20/20 21:11 Dose: 999 mls/hr Documented by: [id number] Acetaminophen (Ofirmev) 1,000 mg in 100 mls @ 400 mls/hr IV NOW STA Stop: 12/20/20 19:56 Last Infusion: 12/20/20 21:50 Dose: 0 mls/hr Documented by: [id number] Admin: 12/20/20 21:11 Dose: 400 mls/hr Documented by: [id number] Sodium Chloride (Nss 1000ml) 1,000 mls @ 999 mls/hr IV .Q1H1M ONE Stop: 12/20/20 20:42 Last Admin: 12/20/20 21:14 Dose: 999 mls/hr Documented by: [id number] Ioversol (Optiray 320 125ml) 110 ml IV ONCE ONE Stop: 12/20/20 21:41 Last Admin: 12/20/20 21:41 Dose: 110 ml Documented by: [id number] Ondansetron HCl (Ondansetron Inj 2 Mg/Ml 2 Ml Vial) Confirm Administered Dose 4 mg .ROUTE .STK-MED ONE Stop: 12/20/20 21:12 Last Admin: 12/20/20 21:15 Dose: Not Given Documented by: [id number] Ondansetron HCl (Ondansetron Inj 2 Mg/Ml 2 Ml Vial) 4 mg IV NOW STA Stop: 12/20/20 21:14 Last Admin: 12/20/20 21:14 Dose: 4 mg Documented by: [id number] Medical Decision Making Laboratory Data Result diagrams: 12/20/20 20:41 12/20/20 20:41 Lab Results 12/20/20 12/20/20 12/20/20 Range/Units 20:41 20:41 20:41 WBC 1.82 L (4.8-10.8) K/uL RBC 3.27 L (4.2-5.4) M/uL Hgb 9.3 L (12.0-16.0) g/dL Hct 27.7 L (37-47) % MCV 84.7 (80-100) fL MCH 28.4 (25-34) pg MCHC 33.6 (32-36) g/dL RDW Std Deviation 61.2 H (36.4-46.3) fL RDW Coeff of Rosita 19.9 H (11.5-14.5) % Plt Count 130 (130-400) K/uL MPV 10.7 H (7.4-10.4) fL Immature Gran % (Auto) 1.1 % Neut % (Auto) 71.5 % Lymph % (Auto) 19.8 % [place] % (Auto) 7.1 % Eos % (Auto) 0.5 % Baso % (Auto) 0.0 % Neut # (Auto) 1.30 L (1.4-6.5) K/uL Lymph # (Auto) 0.36 L (1.2-3.4) K/uL [place] # (Auto) 0.13 (0.11-0.59) K/uL Eos # (Auto) 0.01 (0-0.5) K/uL Baso # (Auto) 0.00 (0-0.2) K/uL Immature Gran # (Auto) 0.02 (0.00-0.02) K/uL PT 11.5 (9.0-12.0) Seconds INR 1.1 (0.9-1.1) APTT 76.3 H* (21.0-31.0) Seconds PTT Ratio 2.9 VBG pH 7.40 (7.36-7.41) VBG pCO2 39 (38-50) mmHg VBG pO2 34 mmHg VBG HCO3 24 mmol/L VBG O2 Saturation 62.6 % VBG Base Excess -0.9 mEq/L Barometric Pressure 737.5 mm/Hg Sodium (136-145) mmol/L Potassium (3.5-5.1) mmol/L Chloride (98-107) mmol/L Carbon Dioxide (21-32) mmol/L Anion Gap (3-11) BUN (7-18) mg/dl Creatinine (0.6-1.2) mg/dl Est Cr Clr Drug Dosing ml/min Est GFR ( Amer) Est GFR (Non-Af Amer) BUN/Creatinine Ratio (10-20) Glucose (70-99) mg/dl Lactate (0.4-2.0) mmol/L Calcium (8.5-10.1) mg/dl Magnesium (1.8-2.4) mg/dl Total Bilirubin (0.2-1) mg/dl AST (15-37) U/L ALT (12-78) U/L Alkaline Phosphatase (45-117) U/L Troponin I (0-0.045) ng/ml Total Protein (6.4-8.2) gm/dl Albumin (3.4-5.0) gm/dl Globulin (2.5-4.0) gm/dl Albumin/Globulin Ratio (0.9-2) Procalcitonin (0-0.5) ng/ml Anaplasma Smear See Comment COVID-19 Eval Order SARS-CoV-2 IgG & IgM Ab (Negative) 12/20/20 12/20/20 12/20/20 Range/Units 20:41 20:41 20:41 WBC (4.8-10.8) K/uL RBC (4.2-5.4) M/uL Hgb (12.0-16.0) g/dL Hct (37-47) % MCV (80-100) fL MCH (25-34) pg MCHC (32-36) g/dL RDW Std Deviation (36.4-46.3) fL RDW Coeff of Rosita (11.5-14.5) % Plt Count (130-400) K/uL MPV (7.4-10.4) fL Immature Gran % (Auto) % Neut % (Auto) % Lymph % (Auto) % [place] % (Auto) % Eos % (Auto) % Baso % (Auto) % Neut # (Auto) (1.4-6.5) K/uL Lymph # (Auto) (1.2-3.4) K/uL [place] # (Auto) (0.11-0.59) K/uL Eos # (Auto) (0-0.5) K/uL Baso # (Auto) (0-0.2) K/uL Immature Gran # (Auto) (0.00-0.02) K/uL PT (9.0-12.0) Seconds INR (0.9-1.1) APTT (21.0-31.0) Seconds PTT Ratio VBG pH (7.36-7.41) VBG pCO2 (38-50) mmHg VBG pO2 mmHg VBG HCO3 mmol/L VBG O2 Saturation % VBG Base Excess mEq/L Barometric Pressure mm/Hg Sodium 137 (136-145) mmol/L Potassium 3.5 (3.5-5.1) mmol/L Chloride 108 H (98-107) mmol/L Carbon Dioxide 24 (21-32) mmol/L Anion Gap 5.0 (3-11) BUN 18 (7-18) mg/dl Creatinine 0.78 (0.6-1.2) mg/dl Est Cr Clr Drug Dosing 115.0 ml/min Est GFR ( Amer) 119.9 Est GFR (Non-Af Amer) 103.5 BUN/Creatinine Ratio 23.5 H (10-20) Glucose 153 H (70-99) mg/dl Lactate 0.8 (0.4-2.0) mmol/L Calcium 8.1 L (8.5-10.1) mg/dl Magnesium 1.8 (1.8-2.4) mg/dl Total Bilirubin 0.8 (0.2-1) mg/dl AST 29 (15-37) U/L ALT 38 (12-78) U/L Alkaline Phosphatase 76 (45-117) U/L Troponin I < 0.015 (0-0.045) ng/ml Total Protein 7.1 (6.4-8.2) gm/dl Albumin 3.8 (3.4-5.0) gm/dl Globulin 3.3 (2.5-4.0) gm/dl Albumin/Globulin Ratio 1.2 (0.9-2) Procalcitonin < 0.05 (0-0.5) ng/ml Anaplasma Smear COVID-19 Eval Order SARS-CoV-2 IgG & IgM Ab (Negative) 12/20/20 12/20/20 Range/Units 20:41 21:25 WBC (4.8-10.8) K/uL RBC (4.2-5.4) M/uL Hgb (12.0-16.0) g/dL Hct (37-47) % MCV (80-100) fL MCH (25-34) pg MCHC (32-36) g/dL RDW Std Deviation (36.4-46.3) fL RDW Coeff of Rosita (11.5-14.5) % Plt Count (130-400) K/uL MPV (7.4-10.4) fL Immature Gran % (Auto) % Neut % (Auto) % Lymph % (Auto) % [place] % (Auto) % Eos % (Auto) % Baso % (Auto) % Neut # (Auto) (1.4-6.5) K/uL Lymph # (Auto) (1.2-3.4) K/uL [place] # (Auto) (0.11-0.59) K/uL Eos # (Auto) (0-0.5) K/uL Baso # (Auto) (0-0.2) K/uL Immature Gran # (Auto) (0.00-0.02) K/uL PT (9.0-12.0) Seconds INR (0.9-1.1) APTT (21.0-31.0) Seconds PTT Ratio VBG pH (7.36-7.41) VBG pCO2 (38-50) mmHg VBG pO2 mmHg VBG HCO3 mmol/L VBG O2 Saturation % VBG Base Excess mEq/L Barometric Pressure mm/Hg Sodium (136-145) mmol/L Potassium (3.5-5.1) mmol/L Chloride (98-107) mmol/L Carbon Dioxide (21-32) mmol/L Anion Gap (3-11) BUN (7-18) mg/dl Creatinine (0.6-1.2) mg/dl Est Cr Clr Drug Dosing ml/min Est GFR ( Amer) Est GFR (Non-Af Amer) BUN/Creatinine Ratio (10-20) Glucose (70-99) mg/dl Lactate (0.4-2.0) mmol/L Calcium (8.5-10.1) mg/dl Magnesium (1.8-2.4) mg/dl Total Bilirubin (0.2-1) mg/dl AST (15-37) U/L ALT (12-78) U/L Alkaline Phosphatase (45-117) U/L Troponin I (0-0.045) ng/ml Total Protein (6.4-8.2) gm/dl Albumin (3.4-5.0) gm/dl Globulin (2.5-4.0) gm/dl Albumin/Globulin Ratio (0.9-2) Procalcitonin (0-0.5) ng/ml Anaplasma Smear COVID-19 Eval Order [facility]FluRsv at [facility] SARS-CoV-2 IgG & IgM Ab Positive A (Negative) Imaging Data Radiologist's Impression: CT SCAN OF THE BRAIN WITHOUT IV CONTRAST CLINICAL HISTORY: Headache. Covid. COMPARISON STUDY: CT of the brain dated 02/27/2016. TECHNIQUE: Unenhanced axial CT scan of the brain is performed from the vertex to the skull base. A dose lowering technique was utilized adhering to the principles of ALARA. FINDINGS: Brain parenchyma: The brain parenchyma is normal in appearance. There is no hemorrhage, mass effect, or evidence of acute territorial ischemia by CT criteria. Tolbert-white matter differentiation is preserved. No extra-axial fluid collection is seen. Ventricles, sulci, cisterns: Normal in configuration. Intracranial vasculature: The visualized intracranial vasculature at the skull base is normal in appearance. Calvarium: Unremarkable. Sinuses and mastoids: The visualized paranasal sinuses are clear. The mastoid air cells are well pneumatized. Orbits: The bony orbits are grossly intact. IMPRESSION: No acute intracranial abnormality. ACT 112: Negative or not required by law. Electronically signed by: Pro Matt M.D. 12/20/2020 9:47 PM Dictated: 12/20/202143Transcribed: 12/20/202143 CT ANGIOGRAM OF THE CHEST CLINICAL HISTORY: Atypical chest pain. Dyspnea. Covid. COMPARISON STUDY: Chest x-ray dated 12/19/2020. Chest CT dated 02/14/2020. TECHNIQUE: Following the IV administration of 110 cc of Optiray 320, CT angiogram of the chest was performed from the upper abdomen to the thoracic inlet utilizing the pulmonary embolus protocol. Images are reviewed in the axial, sagittal, and coronal planes. 3-D MIPS images are created and assessed. IV contrast was administered without complication. A dose lowering technique was utilized adhering to the principles of ALARA. CT DOSE: 1354.74 mGy.cm FINDINGS: Thyroid: Imaged portions of the thyroid gland are normal in size and attenuation. Thoracic aorta: The thoracic aorta is normal in caliber and demonstrates standard 3-vessel arch anatomy. No dissection is seen. Pulmonary vasculature: The pulmonary trunk appears mildly dilated suggesting pulmonary artery hypertension. There is a small amount of chronic appearing pulmonary embolus identified within the distal right main pulmonary artery extending into the right lower lobe branches. A small amount of chronic pulmonary embolus is also seen within the right upper lobar branches. Chronic appearing thrombus is also seen within branches of the left lower lobe pulmonary artery. This is similar in distribution to the 02/14/2020 examination. No large central pulmonary emboli are identified. Heart: The heart is mildly enlarged and there is a small pericardial effusion. A possible patent ductus arteriosus is unchanged from previous. Lungs and pleural spaces: Mild multifocal groundglass consolidation is seen throughout both lungs. There is trace left pleural effusion. Mediastinum: There is no mediastinal lymphadenopathy. Saida: Clear. Axillae: There is no axillary lymphadenopathy. Upper abdomen: The liver appears steatotic. The spleen is enlarged. A small hiatal hernia is noted. Skeletal structures: No lytic or blastic bony lesions are seen. IMPRESSION: 1. There are chronic appearing bilateral pulmonary emboli as detailed above. These are similar in appearance to the 02/14/2020 examination. 2. No large or central pulmonary embolus is seen. 3. Mild diffuse ground glass consolidation is seen throughout both lungs and consistent with the reported history of viral pneumonia. 4. Trace left pleural effusion. 5. Cardiomegaly and small pericardial effusion. 6. Suspected patent ductus arteriosus is similar to previous. 7. Hepatic steatosis and splenomegaly. 8. Additional findings as above. ACT 112: Negative or not required by law. Electronically signed by: Pro Matt M.D. 12/20/2020 9:57 PM Dictated: 12/20/202147Transcribed: 12/20/202147 ECG Data Indication: + chest pain Rate (beats per minute): 113 Rhythm: + sinus tachycardia ECG Intervals/blocks: + Normal QRS, + Normal ND and + Normal QT-c ECG ST segments: + Normal ST segments [place] Narrative 1925: The patient was evaluated in room B8. A complete history and physical exam was performed. Patient was seen in full airborne precautions. Patient was seen in N95's, gl oves, gowns, face shield by myself and staff. Cardiac monitoring: An order was placed for continuous cardiac monitoring. The monitor shows a rate of 115 with sinus rhythm EMR reviewed. Patient was seen in the emergency department yesterday on 12/19/2020. At that time the patient's labs showed a white blood cell count of 3.46, hemoglobin of 10.4. D-dimer was less than 190. Troponin was negative. Urinalysis was negative. Chest x-ray did not show any infiltrates and the patient was discharged home in a stable condition. 2210: Labs show leukopenia of 1.82. Yesterday patient's white blood cell count was greater than 3. Hemoglobin is also one-point lower at 9.3, 10.4 yesterday. Platelet count 130, 143 yesterday. Lactic acid and procalcitonin level within normal limits. Troponin within normal limits. Patient is having antibodies IgG and IgM to COVID. CTA of the chest showed no acute PE but did show chronic PEs. Patient was given her home dose of Lovenox in the emergency department. Given the patient's leukopenia, anemia, and relative thrombocytopenia, it was thought that the patient could be suffering from a tickborne illness. Patient does states she has pets, dogs and cats, but has not noticed any ticks on them. I did discuss the case with [facility] list Dr. Sanchez and both he and I agree that the patient should be admitted to the hospital. Anaplasmosis labs as well as peripheral smear have been ordered. Lyme screen has been ordered as well. I discussed switch antibiotics to give with Dr. Sanchez and both he and I felt it would be good to give the patient Rocephin as well as doxycycline IV. Dr. Sanchez also asked for ultrasound of bilateral lower extremities to be completed. Patient was made aware of the plan to move to the hospital and she is in agreement. Impression & Plan Sepsis Discharge Plan Visit Data Chief Complaint: Chest Pain Stated Complaint: COVID +, CP, weakness ED Provider: Elian North Discharge Problem: Sepsis Patient Disposition: Being Evaluated by Hospitalist Forms Stand Alone Forms: My [facility] Prescriptions Prescriptions: No Action insulin aspart U-100 [Novolog Flexpen U-100 Insulin] 100 unit/mL (3 mL) insulin pen 0 unit SUBCUT TIDM RF: 0 Lantus Solostar U-100 Insulin 100 unit/mL (3 mL) insulin pen 7 unit SUBCUT HS RF: 0 famotidine 40 mg tablet 40 mg PO HS Qty: 30 RF: 0 metformin 500 mg tablet 1,000 mg PO BID RF: 0 levothyroxine 25 mcg tablet 25 mcg PO QAM RF: 0 ferrous sulfate 325 mg (65 mg iron) tablet 325 mg PO QAM RF: 0 enoxaparin 100 mg/mL syringe 100 mg subcut Q12H RF: 0 Referrals Referrals: Melissa Hough MD [Primary Care Provider] - Discharge Problem: Sepsis Qualifiers: Sepsis type: sepsis due to unspecified organism Sepsis acute organ dysfunction status: unspecified Qualified Code(s): A41.9 - Sepsis, unspecified organism
[2020-12-20 20:56] LABS: Base Excess VBG -0.9 mEq/L; Oxygen Saturation VBG 62.6 %; pH VBG 7.4 (7.36-7.41)
[2020-12-20 21:01] LABS: Eosinophils # (auto) 0.01 K/uL (0-0.5); Eosinophils % (auto) 0.5 %; Hematocrit (blood only) 27.7 % (37-47); Hemoglobin 9.3 g/dL (12.0-16.0); Immature Granulocytes # (auto) 0.02 K/uL (0.00-0.02); Immature Granulocytes % (auto) 1.1 %; Lymphocytes # (auto) 0.36 K/uL (1.2-3.4); Lymphocytes % (auto) 19.8 %; Mean Corpuscular Hemoglobin 28.4 pg (25-34); Mean Corpuscular Hgb Conc 33.6 g/dL (32-36); Mean Corpuscular Volume 84.7 fL (80-100); Mean Platelet Volume 10.7 fL (7.4-10.4); Monocytes # (auto) 0.13 K/uL (0.11-0.59); Monocytes % (auto) 7.1 %; Neutrophils % (auto) 71.5 %; Platelet Count 130 K/uL (130-400); RDW Coefficient of Variation 19.9 % (11.5-14.5); RDW Standard Deviation 61.2 fL (36.4-46.3); Red Blood Count 3.27 M/uL (4.2-5.4); White Blood Count 1.82 K/uL (4.8-10.8)
[2020-12-20] MEDS ORDERED: ONDANSETRON INJ 2 MG/ML 2 ML VIAL ONE (21:11)
[2020-12-20] MEDS ORDERED: ONDANSETRON INJ 2 MG/ML 2 ML VIAL IV STA (21:13)
[2020-12-20 21:18] LABS: Albumin Level 3.8 gm/dl (3.4-5.0); BUN Creatinine Ratio 23.5 (10-20); Blood Urea Nitrogen 18 mg/dl (7-18); Calcium 8.1 mg/dl (8.5-10.1); Carbon Dioxide 24 mmol/L (21-32); Chloride 108 mmol/L (98-107); Est GFR (African American) 119.9; Est GFR (Non-African American) 103.5; Glucose 153 mg/dl (70-99); Magnesium 1.8 mg/dl (1.8-2.4); Potassium 3.5 mmol/L (3.5-5.1); Sodium 137 mmol/L (136-145)
[2020-12-20 21:21] LABS: INR 1.1 (0.9-1.1); Partial Thromboplastin Ratio 2.9; Prothrombin Time 11.5 Seconds (9.0-12.0)
[2020-12-20 21:23] LABS: Alanine Aminotransferase 38 U/L (12-78); Albumin Globulin Ratio 1.2 (0.9-2); Alkaline Phosphatase 76 U/L (45-117); Aspartate Aminotransferase 29 U/L (15-37); Bilirubin,Total 0.8 mg/dl (0.2-1); Globulin 3.3 gm/dl (2.5-4.0); Total Protein 7.1 gm/dl (6.4-8.2); Troponin I < 0.015 ng/ml (0-0.045)
[2020-12-20] MEDS ORDERED: OPTIRAY 320 125ml IV ONE (21:40)
[2020-12-20 21:41] LABS: Partial Thromboplastin Time 76.3 Seconds (21.0-31.0)
[2020-12-20 21:45] LABS: CoV2 Total Antibody Positive (Negative)
--- NOTE | 2020-12-20 21:48 | CT Scan Report ---
CT SCAN OF THE BRAIN WITHOUT IV CONTRAST CLINICAL HISTORY: Headache. Covid. COMPARISON STUDY: CT of the brain dated 02/27/2016. TECHNIQUE: Unenhanced axial CT scan of the brain is performed from the vertex to the skull base. A d ose lowering technique was utilized adhering to the principles of ALARA. FINDINGS: Brain parenchyma: The brain parenchyma is normal in appearance. There is no hemorrhage, mass effect, or evidence of acute territorial ischemia by CT criteria. Tolbert-white matter differentiation is preser antwon. No extra-axial fluid collection is seen. Ventricles, sulci, cisterns: Normal in configuration. Intracranial vasculature: The visualized intracranial vasculature at the skull base is normal in appe arance. Calvarium: Unremarkable. Sinuses and mastoids: The visualized paranasal sinuses are clear. The mastoid air cells are well pneu matized. Orbits: The bony orbits are grossly intact. IMPRESSION: No acute intracranial abnormality. ACT 112: Negative or not required by law. Electronically signed by: Pro Matt M.D. 12/20/2020 9:47 PM
--- NOTE | 2020-12-20 21:58 | CT Scan Report ---
CT ANGIOGRAM OF THE CHEST CLINICAL HISTORY: Atypical chest pain. Dyspnea. Covid. COMPARISON STUDY: Chest x-ray dated 12/19/2020. Chest CT dated 02/14/2020. TECHNIQUE: Following the IV administration of 110 cc of Optiray 320, CT angiogram of the chest was pe rformed from the upper abdomen to the thoracic inlet utilizing the pulmonary embolus protocol. Images are reviewed in the axial, sagittal, and coronal planes. 3-D MIPS images are created and assessed. I V contrast was administered without complication. A dose lowering technique was utilized adhering to the principles of ALARA. CT DOSE: 1354.74 mGy.cm FINDINGS: Thyroid: Imaged portions of the thyroid gland are normal in size and attenuation. Thoracic aorta: The thoracic aorta is normal in caliber and demonstrates standard 3-vessel arch anato my. No dissection is seen. Pulmonary vasculature: The pulmonary trunk appears mildly dilated suggesting pulmonary artery hyperte nsion. There is a small amount of chronic appearing pulmonary embolus identified within the distal ri ght main pulmonary artery extending into the right lower lobe branches. A small amount of chronic pul monary embolus is also seen within the right upper lobar branches. Chronic appearing thrombus is also seen within branches of the left lower lobe pulmonary artery. This is similar in distribution to the 02/14/2020 examination. No large central pulmonary emboli are identified. Heart: The heart is mildly enlarged and there is a small pericardial effusion. A possible patent duct us arteriosus is unchanged from previous. Lungs and pleural spaces: Mild multifocal groundglass consolidation is seen throughout both lungs. Th ere is trace left pleural effusion. Mediastinum: There is no mediastinal lymphadenopathy. Saida: Clear. Axillae: There is no axillary lymphadenopathy. Upper abdomen: The liver appears steatotic. The spleen is enlarged. A small hiatal hernia is noted. Skeletal structures: No lytic or blastic bony lesions are seen. IMPRESSION: 1. There are chronic appearing bilateral pulmonary emboli as detailed above. These are similar in dereck earance to the 02/14/2020 examination. 2. No large or central pulmonary embolus is seen. 3. Mild diffuse ground glass consolidation is seen throughout both lungs and consistent with the repo rted history of viral pneumonia. 4. Trace left pleural effusion. 5. Cardiomegaly and small pericardial effusion. 6. Suspected patent ductus arteriosus is similar to previous. 7. Hepatic steatosis and splenomegaly. 8. Additional findings as above. ACT 112: Negative or not required by law. Electronically signed by: Pro Matt M.D. 12/20/2020 9:57 PM
[2020-12-20] MEDS ORDERED: ENOXAPARIN 100 MG/1ML SYR SQ ONE (21:59)
[2020-12-20] MEDS ORDERED: DOXYCYCLINE HYCLATE 100 MG in DEXTROSE 5% 100 ML IV STA (22:07)
[2020-12-20] MEDS ORDERED: cefTRIAXone SODIUM 1,000 MG/50 ML BAG IV STA (22:07)
[2020-12-20 22:15] LABS: Influenza A virus by PCR Negative (Neg); Influenza B virus by PCR Negative (Neg); RSV by PCR Negative (Neg)
[2020-12-20 22:43] LABS: SARS CoV2 RNA(COVID-19) InHosp POSITIVE (Negative)
--- NOTE | 2020-12-20 22:44 | History & Physical Report ---
Date of Service December 20, 2020 Assessment & Plan (1) Chest pain: (2) Antiphospholipid antibody syndrome: (3) Anemia: (4) History of DVT (deep vein thrombosis): (5) Diabetes mellitus type 2 in obese: (6) History of pulmonary embolism: History of Present Illness Primary Care Provider: Melissa Melendez MD Allergies Allergy/AdvReac Type Severity Reaction Status Date / Time No Known Allergies Allergy Verified 12/20/20 20:56 Home Medications Medication Instructions Recorded Confirmed Type ferrous sulfate 325 mg PO QAM 10/20/19 12/20/20 History levothyroxine 25 mcg PO QAM 10/20/19 12/20/20 History Lantus Solostar U-100 Insulin 7 unit SUBCUT HS 01/15/20 12/20/20 History insulin aspart U-100 [Novolog 0 unit SUBCUT TIDM 01/15/20 12/20/20 History Flexpen U-100 Insulin] enoxaparin 100 mg SUBCUT Q12H 02/12/20 12/20/20 History famotidine 40 mg PO HS #30 tab 02/14/20 12/20/20 Rx metformin 1,000 mg PO BID 12/20/20 12/20/20 History Past Med/Surg History Medical History (Updated 12/20/20 @ 22:26 by Elian North) Anemia affecting Depression Diabetes mellitus type 2 in obese Hearing loss Hepatic steatosis History of DVT (deep vein thrombosis) "LLE in 2009 and 12/2015" History of pulmonary embolism "06/2010- Multiple segmental and subsegmental pulmonary emboli bilaterally 01/09/16 CTA chest- Small bilateral pulmonary emboli" Hypothyroid in , antepartum Insomnia Learning disorder Obesity Red cell alloimmunization, maternal, antepartum Substernal chest pain Subtherapeutic international normalized ratio (INR) Surgical History History of dental surgery History of tonsillectomy and adenoidectomy Hx of tympanostomy tubes Family History Grandfather (Maternal) Coronary heart disease CABG Grandmother (Paternal) Coronary heart disease CABG Denies family history of Deep vein thrombosis Hypercoagulable state Social History Smoking Status: Never smoker Second Hand Exposure: No; Hx Alcohol Use: No Hx Substance Use: No Preferred Language: Greek Communication Ability: Effective Attending Physician Required: No Beliefs That Will Affect Care: None marital status: Single Current Living Situation: Parent Feels Safe at Home: Yes Assistive Devices: None Results & Data Results & Data ([facility]) Vital Signs (Past 12 Hours) Vital Signs Temp Pulse Pulse Resp BP BP Pulse Ox 12/20/20 21:59 38.1 C H 12/20/20 21:58 24 114/61 96 12/20/20 21:19 23 93 12/20/20 21:16 107 H 28 H 118/79 94 12/20/20 20:21 94 12/20/20 19:24 39.4 C H 114 H 24 101/68 96 (1) Chest pain Chest pain type: unspecified Qualified Code(s): R07.9 - Chest pain, unspecified (2) Anemia Anemia type: unspecified type Qualified Code(s): D64.9 - Anemia, unspecified
[2020-12-20 22:46] LABS: Lyme Ab IgG w/WB Rflx Negative (Negative); Lyme Ab IgM w/WB Rflx Negative (Negative)
--- NOTE | 2020-12-20 23:31 | Ultrasound Report ---
ULTRASOUND BILATERAL LOWER EXTREMITY VENOUS CLINICAL HISTORY: Pulmonary embolus. Covid. COMPARISON STUDY: Bilateral lower extremity venous ultrasound dated 10/20/2019. TECHNIQUE: Real-time, grayscale, and color Doppler sonography of the deep veins of the right and left lower extremity was performed from the inguinal crease to the calf. Compression and augmentation wer e utilized. FINDINGS: Right lower extremity: There is nonocclusive chronic appearing thrombus identified within the common femoral vein, throughout the superficial femoral vein, and within the popliteal vein. The greater sap henous vein and the profunda femoris vein at the junction with the common femoral vein are clear. The visualized calf veins are patent. Left lower extremity: There is nonocclusive chronic appearing thrombus identified within the poplitea l vein. The common femoral vein and the superficial femoral vein are patent and normally compressible . The greater saphenous vein and the profunda femoris vein at the junction with the common femoral ve in are clear. The visualized calf veins are patent. IMPRESSION: There is chronic appearing nonocclusive deep venous thrombosis identified in both legs. T his is similar to the 10/20/2018 examination. ACT 112: Negative or not required by law. Electronically signed by: Pro Matt M.D. 12/20/2020 11:29 PM
[2020-12-21] MEDS ORDERED: CYCLOBENZAPRINE HCL 5 MG TAB PO STA (00:11)
[2020-12-21] MEDS ORDERED: Heparin IV Adult Wt-Based Standard *NO* Bolus Protocol IV SCH (00:18)
--- NOTE | 2020-12-21 00:30 | History & Physical Report ---
Date of Service December 21, 2020 Assessment & Plan (1) COVID-19: 30-year-old female with a history of antiphospholipid antibody syndrome on Lovenox at home, history of PE and DVT, type 2 diabetes, obesity who presented to room with chest pain was admitted for lymphopenia, anemia and concern for new or worsening PE secondary to Covid. Covid positive on 12/18 as well as 12/20 Patient continues to be febrile as high as 39.4 Celsius in the ER Tylenol 500 mg every 4 hours as needed for fever Pulmonary toilet: Flutter valve, incentive spirometry, scheduled DuoNebs, guaifenesin, Tessalon Perles to help control cough Flexeril 5 mg x 1 to aid with sleep and body aches Isolation precautions for Covid Zofran 4 mg IV every 6 hours for nausea Not a candidate for remdesivir at this time. Will initiate daily dexamethasone (2) Chest pain: Troponin negative No EKG changes ACS unlikely in this age range; appears to be pleuritic, more likely secondary to chronic or worsening PEs and frequent coughing Consider ambulatory pulse ox in a.m. to corroborate increasing oxygen requirement versus musculoskeletal pain Currently satting 94% on room air (3) Antiphospholipid antibody syndrome: Previously diagnosed Patient was taking 100 mg of subcu Lovenox twice daily at home and has not missed any doses in the past week Concern for failure of Lovenox treatment in the setting of acute chest pain and chronic bilateral DVTs and history of PEs CTA of chest showing chronic appearing bilateral pulmonary emboli similar to CTA of chest in January 2020, mild diffuse groundglass consolidation in both lungs consistent with COVID-19. Lower extremity Dopplers showing chronic appearing nonocclusive DVTs in both legs similar to previous exam in 2018 Hematology consulted for consideration of changing outpatient management Heparin drip without bolus for anticoagulation instead of Lovenox in the meantime (4) Anemia: Chronic, patient appears to have a between hemoglobin of 8.6 and 10 MCV 84.7, hematocrit 27.7 Transfusion criteria hemoglobin less than 7.0 or symptomatic and less than 10 CBC daily (5) History of DVT (deep vein thrombosis): (6) Diabetes mellitus type 2 in obese: Outpatient regimen comprised of Metformin 1000 mg p.o. twice daily, 7 units Lantus subcu at bedtime and sliding scale aspart with meals Metformin held, Lantus 7 units at bedtime continued, sliding scale insulin with meals Diabetic carb conscious diet (7) History of pulmonary embolism: (8) Lymphopenia associated with COVID-19: White blood cell count of 1.82 down from 3.46 yesterday Emphasized 0.36 today down from 0.87 yesterday Neutropenia new today at 1.30 down from 2.21 yesterday Continue to trend CBC daily Patient received 1 dose of doxycycline and ceftriaxone in ER for coverage of possible Lyme or anaplasmosis infection Anaplasma smear and Lyme antibody titers negative as well as influenza and RSV Blood cultures pending (9) Hypothyroidism: Continue home levothyroxine dosing DVT prophylaxis: Heparin drip FEN/GI: Maintenance fluids at 125 cc normal saline x3 bags, famotidine increased to PPI for gastric protection, carb consistent diet CODE STATUS: Full code Dispo: PCU/telemetry History of Present Illness 30-year-old female with a history of bilateral PE, DVT, type 2 diabetes, antiphospholipid antibody syndrome on Lovenox at home, recent diagnosis of COVID-19 on 12/18/2020 who presents to the ER today for acute onset chest pain that started this morning and full body fatigue. She states her Covid symptoms started on 12/14/2020 with fever, chills, cough. She was tested on the at an outside location and tested positive. She states that only today that she started having full body aches, weakness, chest pain with inspiration and increasing shortness of breath with exertion. She states that she also has new upper back pain that she thinks secondary to the coughing. She also has been having nausea and vomiting. He denies any diarrhea, loss of sense of taste or sense of smell. She has continued to have fevers and chills at home. She denies any changes to medications or missed doses of Lovenox during this last week. Main complaint at this time is full body muscle and joint pain and inability to sleep secondary to that pain. ED course significant for CTA of chest showing chronic appearing bilateral pulmonary emboli similar to CTA of chest in January 2020, mild diffuse groundglass consolidation in both lungs consistent with COVID-19. Lower extremity Dopplers showing chronic appearing nonocclusive DVTs in both legs similar to previous exam in 2017. Some concern for Lyme versus anaplasmosis given rapid onset of symptoms however patient denies any recent or previous tick exposures, recent hiking trips, known or suspected tick bites. Primary Care Provider: Melissa Melendez MD Allergies Allergy/AdvReac Type Severity Reaction Status Date / Time No Known Allergies Allergy Verified 12/20/20 20:56 Home Medications Medication Instructions Recorded Confirmed Type ferrous sulfate 325 mg PO QAM 10/20/19 12/20/20 History levothyroxine 25 mcg PO QAM 10/20/19 12/20/20 History Lantus Solostar U-100 Insulin 7 unit SUBCUT HS 01/15/20 12/20/20 History insulin aspart U-100 [Novolog 0 unit SUBCUT TIDM 01/15/20 12/20/20 History Flexpen U-100 Insulin] enoxaparin 100 mg SUBCUT Q12H 02/12/20 12/20/20 History famotidine 40 mg PO HS #30 tab 02/14/20 12/20/20 Rx metformin 1,000 mg PO BID 12/20/20 12/20/20 History Past Med/Surg History Medical History (Updated 12/21/20 @ 17:15 by Nikki Loaiza, ) Anemia affecting Depression Diabetes mellitus type 2 in obese Hearing loss Hepatic steatosis History of DVT (deep vein thrombosis) "LLE in 2009 and 12/2015" History of pulmonary embolism "06/2010- Multiple segmental and subsegmental pulmonary emboli bilaterally 01/09/16 CTA chest- Small bilateral pulmonary emboli" Hypothyroid in , antepartum Insomnia Learning disorder Obesity Red cell alloimmunization, maternal, antepartum Substernal chest pain Subtherapeutic international normalized ratio (INR) Surgical History History of dental surgery History of tonsillectomy and adenoidectomy Hx of tympanostomy tubes Family History Grandfather (Maternal) Coronary heart disease CABG Grandmother (Paternal) Coronary heart disease CABG Denies family history of Deep vein thrombosis Hypercoagulable state Social History Smoking Status: Never smoker Second Hand Exposure: No; Hx Alcohol Use: No Hx Substance Use: No Preferred Language: Montenegrin Communication Ability: Effective Pipe Threader Required: No Beliefs That Will Affect Care: None marital status: Single Current Living Situation: Family Other Information That Helps Us Care for You: No Feels Safe at Home: Yes Safety Concerns: Feels Safe At This Time Assistive Devices: None Review of Systems Constitutional: + fever, + chills, + sweats, + body aches, + fatigue, + malaise, + weakness and + insomnia Ear, Nose, Mouth, Throat: no nasal congestion Respiratory: + cough, + dyspnea on exertion and + pain with cough Cardiovascular: + chest pain and + dyspnea on exertion; no chest pain with activity, no dyspnea at rest, no orthopnea, no palpitations and no edema Gastrointestinal: + nausea and + vomiting; no abdominal pain, no constipation, no diarrhea/loose stools and no blood in stools Musculoskeletal: + back pain, + myalgia, + muscle weakness and + body aches Neurologic: no falls, no tingling, no numbness and no paresthesia Physical Exam Physical Exam: Constitutional: obese, visibly uncomfortable and in pain Eyes: EOMI, pupils equal and reactive bilaterally, no scleral icterus Cardiac: tachycardic, regular rhythm, no murmurs, gallops or rubs. Normal S1, S2 Pulm: frequent coughing, CTA BL, no wheezes, rhonchi, or crackles, moving air well throughout both lungs Abd: soft, +epigastric tenderness, nondistended, normal bowel sounds, no rebound or guarding Extremities: 2+ peripheral pulses, no edema Neuro: no focal deficits, moving all 4 limbs, A&Ox3 Skin: warm to touch, facial flushing Results & Data Results & Data ([facility]) Vital Signs (Past 12 Hours) Vital Signs Temp Pulse Pulse Resp BP BP Pulse Ox 12/20/20 23:56 22 110/71 94 12/20/20 23:23 37.2 C 12/20/20 22:31 23 132/69 95 12/20/20 21:59 38.1 C H 12/20/20 21:58 24 114/61 96 12/20/20 21:19 23 93 12/20/20 21:16 107 H 28 H 118/79 94 12/20/20 20:21 94 12/20/20 19:24 39.4 C H 114 H 24 101/68 96 Laboratory Results WBC 1.82 K/uL (4.8-10.8) L 12/20/20 20:41 RBC 3.27 M/uL (4.2-5.4) L 12/20/20 20:41 Hgb 9.3 g/dL (12.0-16.0) L 12/20/20 20:41 Hct 27.7 % (37-47) L 12/20/20 20:41 MCV 84.7 fL (80-100) 12/20/20 20:41 MCH 28.4 pg (25-34) 12/20/20 20:41 MCHC 33.6 g/dL (32-36) 12/20/20 20:41 RDW Std Deviation 61.2 fL (36.4-46.3) H 12/20/20 20:41 RDW Coeff of Rosita 19.9 % (11.5-14.5) H 12/20/20 20:41 Plt Count 130 K/uL (130-400) 12/20/20 20:41 MPV 10.7 fL (7.4-10.4) H 12/20/20 20:41 Immature Gran % (Auto) 1.1 % 12/20/20 20:41 Neut % (Auto) 71.5 % 12/20/20 20:41 Lymph % (Auto) 19.8 % 12/20/20 20:41 Nance % (Auto) 7.1 % 12/20/20 20:41 Eos % (Auto) 0.5 % 12/20/20 20:41 Baso % (Auto) 0.0 % 12/20/20 20:41 Neut # (Auto) 1.30 K/uL (1.4-6.5) L 12/20/20 20:41 Lymph # (Auto) 0.36 K/uL (1.2-3.4) L 12/20/20 20:41 Nance # (Auto) 0.13 K/uL (0.11-0.59) 12/20/20 20: Eos # (Auto) 0.01 K/uL (0-0.5) 12/20/20 20:41 Baso # (Auto) 0.00 K/uL (0-0.2) 12/20/20 20:41 Immature Gran # (Auto) 0.02 K/uL (0.00-0.02) 12/20/20 20:41 PT 11.5 Seconds (9.0-12.0) 12/20/20 20:41 INR 1.1 (0.9-1.1) 12/20/20 20:41 APTT 76.3 Seconds (21.0-31.0) H* 12/20/20 20:41 PTT Ratio 2.9 12/20/20 20:41 VBG pH 7.40 (7.36-7.41) 12/20/20 20:41 VBG pCO2 39 mmHg (38-50) 12/20/20 20:41 VBG pO2 34 mmHg 12/20/20 20:41 VBG HCO3 24 mmol/L 12/20/20 20:41 VBG O2 Saturation 62.6 % 12/20/20 20:41 VBG Base Excess -0.9 mEq/L 12/20/20 20:41 Barometric Pressure 737.5 mm/Hg 12/20/20 20:41 Sodium 137 mmol/L (136-145) 12/20/20 20:41 Potassium 3.5 mmol/L (3.5-5.1) 12/20/20 20:41 Chloride 108 mmol/L (98-107) H 12/20/20 20:41 Carbon Dioxide 24 mmol/L (21-32) 12/20/20 20:41 Anion Gap 5.0 (3-11) 12/20/20 20:41 BUN 18 mg/dl (7-18) 12/20/20 20:41 Creatinine 0.78 mg/dl (0.6-1.2) 12/20/20 20:41 Est Cr Clr Drug Dosing 115.0 ml/min 12/20/20 20:41 Est GFR ( Amer) 119.9 12/20/20 20:41 Est GFR (Non-Af Amer) 103.5 12/20/20 20:41 BUN/Creatinine Ratio 23.5 (10-20) H 12/20/20 20:41 Glucose 153 mg/dl (70-99) H 12/20/20 20:41 Lactate 0.8 mmol/L (0.4-2.0) 12/20/20 20:41 Calcium 8.1 mg/dl (8.5-10.1) L 12/20/20 20:41 Magnesium 1.8 mg/dl (1.8-2.4) 12/20/20 20:41 Total Bilirubin 0.8 mg/dl (0.2-1) 12/20/20 20:41 AST 29 U/L (15-37) 12/20/20 20:41 ALT 38 U/L (12-78) 12/20/20 20:41 Alkaline Phosphatase 76 U/L (45-117) 12/20/20 20:41 Troponin I < 0.015 ng/ml (0-0.045) 12/20/20 20:41 Total Protein 7.1 gm/dl (6.4-8.2) 12/20/20 20:41 Albumin 3.8 gm/dl (3.4-5.0) 12/20/20 20:41 Globulin 3.3 gm/dl (2.5-4.0) 12/20/20 20:41 Albumin/Globulin Ratio 1.2 (0.9-2) 12/20/20 20:41 Procalcitonin < 0.05 ng/ml (0-0.5) 12/20/20 20:41 Anaplasma Smear See Comment 12/20/20 20:41 Lyme Disease IgG Ab Negative (Negative) 12/20/20 20:41 Lyme Disease IgM Ab Negative (Negative) 12/20/20 20:41 COVID-19 Eval Order CovFluRsv at [facility] 12/20/20 21:25 SARS-CoV-2 (PCR) POSITIVE (Negative) A* 12/20/20 21:25 Influenza Type A (PCR) Negative (Neg) 12/20/20 21:25 Influenza Type B (PCR) Negative (Neg) 12/20/20 21:25 RSV (RT-PCR) Negative (Neg) 12/20/20 21:25 SARS-CoV-2 IgG & IgM Ab Positive (Negative) A 12/20/20 20:41 Code Status & VTE Plan VTE Prophylaxis Plan VTE Prophylaxis will be ordered: Yes Supervising Physician Co-Signing Physician Notes Attending addendum: I have physically seen this patient, have supervised the medical residents activities, and agree with the H&P unless as otherwise noted. Assessment and Plan: COVID-19 infection- Dexamethasone 6 mg IV every morning Duonebs every 4 hours while awake and every 2 hours when necessary. Not a candidate for either remdesivir or convalescent plasma Concern regarding the additive hypercoagulability to her already pre-existing issues with pulmonary emboli and DVT Chest pain- The patient will be admitted to telemetry for serial cardiac enzymes, serial EKG's, cardiac rhythm monitoring and a 2-D echocardiogram with Dopplers. CT angiography suggest PEs are chronic. Lower extremity venous Doppler suggest DVTs are chronic. Still with concern regarding possible failure of Lovenox, with history of phospholipid antibody syndrome and hypercoagulability associated with Covid 19 Convert to heparin drip, consult hematology. Remaining orders and notations as noted Resident Activity Tracking Resident Involvement: Resident Care Provided Care Provided: Adult Hospital Medicine (1) Anemia Anemia type: unspecified type Qualified Code(s): D64.9 - Anemia, unspecified (2) Chest pain Chest pain type: unspecified Qualified Code(s): R07.9 - Chest pain, unspecified
[2020-12-21] MEDS ORDERED: ONDANSETRON INJ 2 MG/ML 2 ML VIAL IV PRN (01:04)
[2020-12-21] MEDS ORDERED: POLYETHYLENE (MIRALAX) 17 GM PACK PO PRN (01:04)
[2020-12-21] MEDS ORDERED: ALUMINUM/MAGNESIUM SUSP 30 ML UDC PO PRN (01:04)
[2020-12-21] MEDS ORDERED: MAGNESIUM HYDROXIDE SUSP 30 ML UDC PO PRN (01:04)
[2020-12-21] MEDS ORDERED: guaiFENesin/CODEINE 100MG/10MG 5ML UDC PO PRN ×2 (01:04→12:31)
[2020-12-21] MEDS ORDERED: GLUCOSE 10 TABS/TUBE PO PRN (01:30)
[2020-12-21] MEDS ORDERED: GLUCAGON FOR INJ 1 MG VIAL IM PRN (01:30)
[2020-12-21] MEDS ORDERED: CARBOHYDRATES FOR HYPOGLYCEMIA PO PRN (01:30)
[2020-12-21] MEDS ORDERED: DEXTROSE 50% 50 ML SYRINGE IV PRN (01:30)
[2020-12-21] MEDS ORDERED: GLUCOSE 40% GEL 15 GM TUBE PO PRN (01:30)
[2020-12-21] MEDS: SODIUM CHLORIDE 0.9% 1000ML 1,000 ML IV SCH ×2 (02:22→09:14)
[2020-12-21] MEDS ORDERED: HEPARIN SODIUM/DEXTROSE 25,000 UNITS/500 ML BAG IV SCH (06:00)
[2020-12-21 06:15] LABS: Eosinophils # (auto) 0.02 K/uL (0-0.5); Eosinophils % (auto) 1.2 %; Hematocrit (blood only) 25.8 % (37-47); Hemoglobin 8.4 g/dL (12.0-16.0); Immature Granulocytes # (auto) 0.02 K/uL (0.00-0.02); Immature Granulocytes % (auto) 1.2 %; Lymphocytes # (auto) 0.41 K/uL (1.2-3.4); Mean Corpuscular Hemoglobin 27.7 pg (25-34); Mean Corpuscular Hgb Conc 32.6 g/dL (32-36); Mean Corpuscular Volume 85.1 fL (80-100); Mean Platelet Volume 10.8 fL (7.4-10.4); Monocytes # (auto) 0.15 K/uL (0.11-0.59); Monocytes % (auto) 9.1 %; Neutrophils # (auto) 1.04 K/uL (1.4-6.5); Neutrophils % (auto) 63.5 %; Platelet Count 113 K/uL (130-400); RDW Coefficient of Variation 20.2 % (11.5-14.5); Red Blood Count 3.03 M/uL (4.2-5.4); White Blood Count 1.64 K/uL (4.8-10.8)
[2020-12-21 06:39] LABS: Anisocytosis Present; Giant Platelets 1+; Spherocytes 1+
[2020-12-21 06:50] LABS: Partial Thromboplastin Ratio 2.7
[2020-12-21 06:51] LABS: BUN Creatinine Ratio 22.3 (10-20); Calcium 7.2 mg/dl (8.5-10.1); Creatinine Clr Calc Pharmacy 159.7 ml/min; Est GFR (African American) 145.4; Est GFR (Non-African American) 125.4; Potassium 3.6 mmol/L (3.5-5.1)
[2020-12-21 06:53] LABS: Partial Thromboplastin Time 71.3 Seconds (21.0-31.0)
[2020-12-21] MEDS: LEVOTHYROXINE SODIUM 25 MCG TABLET PO SCH (07:56)
[2020-12-21] MEDS: ACETAMINOPHEN 325 MG TAB PO PRN ×3 (08:09→20:45)
[2020-12-21] MEDS ORDERED: CHLORASEPTIC 1.4% SOLN 180 ML BTL MT PRN (08:41)
[2020-12-21] MEDS ORDERED: IBUPROFEN 200 MG TAB PO STA (08:47)
[2020-12-21] MEDS ORDERED: INSULIN GLARGINE SOLOSTAR 100 UNITS/ML 3 ML PEN SC SCH (09:00)
[2020-12-21] MEDS: ENOXAPARIN 100 MG/1ML SYR SQ SCH ×2 (09:11→19:47)
[2020-12-21] MEDS: dexAMETHasone 6 MG in SYRINGE 0 ML IV SCH (09:14)
--- NOTE | 2020-12-21 09:16 | Electrocardiogram Report ---
Test Reason : Blood Pressure : / mmHG Vent. Rate : 113 BPM Atrial Rate : 113 BPM P-R Int : 142 ms QRS Dur : 100 ms QT Int : 324 ms P-R-T Axes : 057 105 039 degrees QTc Int : 444 ms Sinus tachycardia Incomplete right bundle branch block Rightward axis Borderline ECG When compared with ECG of 19-DEC-2020 10:16, Premature atrial complexes are no longer Present QRS axis Shifted right Confirmed by Sam He ([id number]) on 12/21/2020 9:15:58 AM Referred By: REFERRED SELF Confirmed By:Sam He
[2020-12-21] MEDS: BENZONATATE 100 MG CAPSULE PO PRN (09:28)
[2020-12-21 10:09] LABS: Appearance Urine Clear (Clear); Bacteria Urine Automated Negative (Negative); Bilirubin Urine Negative (Negative); Blood Urine Negative (Negative); Color Urine Yellow; Epithelial Cell Urine Auto >30 /lpf (0-5); Glucose Urine UA Negative (Negative); Ketones Urine 2+ (Negative); Leukocyte Esterase Urine Trace (Negative); Nitrite Urine Negative (Negative); Protein Urine Negative (Negative); RBC Urine Automated 0-4 /hpf (0-4); Urobilinogen Urine Negative (Negative)
--- NOTE | 2020-12-21 12:13 | Hospitalist Progress Note ---
Date of Service December 21, 2020 Assessment & Plan (1) COVID-19: Improved with supportive care and decadron overnight. Will check CRP with am labs and continue to monitor clinically. Her oxygen levels were never low enough to technically qualify for steroids and she continues to breathe normally on room air. She apparently was hospitalized for vomiting and inability to tolerate PO, which is improving. Would continue the steroids for now, as she is doing better. No indication for remdesivir at this time. Patient is not septic and remains hemodynamically stable overnight. (2) Lymphopenia associated with COVID-19: Likely related to acute infection. Expected to improve as this improves. Rickettsial illness was also considered and she has a pending anaplasma, however, there is no tick exposure recently. (3) Thrombocytopenia: Likely consumptive process related to infection. Monitor CBC daily. Cont current Lovenox therpay. (4) anemia: around her recent baseline. No evidence of active bleeding. No need for transfusion at this time. (5) Vomiting and diarrhea: Vomiting has resolved and she is tolerating some food this morning. Diarrhea continues 1-2 episodes per day and is likely related to extrapulmonary manifestation of covid that is known. (6) Hypothyroidism: Cont synthroid per home regimen. (7) Antiphospholipid antibody syndrome: h/o this in records. (8) DVT, bilateral lower limbs: Known h/o bilat DVT seen on venous doppler legs. Cont current home Lovenox therapy. (9) Bilateral pulmonary embolism: No changes from prior CT in 2018 to indicate a new acute PE is present. No increased work of breathing or chest pain or hypoxia is present. Cont home Lovenox therapy . (10) Diabetes mellitus type 2 in obese: Cont basal bolus insulin wicho in light of added steroids. Check A1C (11) DVT prophylaxis: Lovenox-full dose Full Code Dispo-to home in next 1-2 days once she is reliably eating and feeling improved. Nikki Loaiza DO [facility] Hospitalist Admission and Anticipated Discharge Date Admission Date: December 20, 2020 Subjective 30 yo F with APLS and h/o DVT and PE presented after being diagnosed as outpatient with COVID-19. She reports symptoms for the past 7 days including fevers, chills, vomiting, diarrhea, fatigue, malaise and headache. She denies shortness of breath or chest pain. She reports some coughing and some back pain secondary to coughing so much. She has a 10 month old son who is also infected but she states "he is doing better than I am." She has been able to tolerate food this morning and is feeling somewhat better since yesterday on admission. Review of Systems Review of Systems: All systems reviewed & are unremarkable except as noted in Subjective Physical Exam Physical Exam: CONSTITUTIONAL: obese, vitals as above, generally ill- appearing, appears fatigued, flat affect. EYES: normal conjunctivae, no scleral icterus ENT: external ear and nose normal, MMM RESPIRATORY: clear to auscultation bilaterally, no crackles, rales or wheezes, normal respiratory effort CARDIOVASCULAR: regular rate and rhythm, S1 and 2 heard without murmurs, gallops or rubs, no JVD, no peripheral edema GASTROINTESTINAL: soft, nontender, nondistended, no guarding MUSCULOSKELETAL: generalized weakness SKIN: warm and diaphoretic NEUROLOGIC: CN 2-12 grossly intact, normal cognition, normal speech, no tremor. No gross focal deficits. PSYCHIATRIC: alert cooperative and oriented to person, place and time. Results & Data Results & Data ([facility]) Vital Signs (Past 12 Hours) Vital Signs Temp Pulse Pulse Resp BP BP Pulse Ox 12/21/20 12:03 36.6 C 83 19 113/65 97 12/21/20 08:14 36.8 C 84 16 122/69 99 12/21/20 00:45 84 12/21/20 00:34 37 C 86 21 116/61 96 Laboratory Results Short CBC 12/20/20 12/21/20 Range/Units 20:41 05:23 WBC 1.82 L 1.64 L (4.8-10.8) K/uL Hgb 9.3 L 8.4 L (12.0-16.0) g/dL Hct 27.7 L 25.8 L (37-47) % Plt Count 130 113 L (130-400) K/uL BMP 12/20/20 12/21/20 20:41 05:23 Sodium 137 140 Potassium 3.5 3.6 Chloride 108 H 112 H Carbon Dioxide 24 23 BUN 18 13 Creatinine 0.78 0.58 L Glucose 153 H 139 H Calcium 8.1 L 7.2 L Cardiac Enzymes 12/20/20 Range/Units 20:41 Troponin I < 0.015 (0-0.045) ng/ml Liver Function 12/20/20 Range/Units 20:41 Total Bilirubin 0.8 (0.2-1) mg/dl AST 29 (15-37) U/L ALT 38 (12-78) U/L Alkaline Phosphatase 76 (45-117) U/L Albumin 3.8 (3.4-5.0) gm/dl Urine 12/21/20 Range/Units Unknown Urine Color Yellow Urine Appearance Clear (Clear) Urine pH 5.0 (4.5-7.5) Ur Specific [place] 1.030 (1.000-1.030) Urine Protein Negative (Negative) Urine Glucose (UA) Negative (Negative) Medications Administered Current Inpatient Medications Acetaminophen (Acetaminophen 325 Mg Tab) 650 mg PO Q4H PRN PRN Reason: Pain or Fever Stop: 01/20/21 01:03 Last Admin: 12/21/20 08:09 Dose: 650 mg Documented by: Al Hydrox/Mg Hydrox/Simethicone (Aluminum/Magnesium Susp 30 Ml Udc) 15 ml PO Q4H PRN PRN Reason: Dyspepsia Stop: 01/20/21 01:03 Benzonatate (Benzonatate 100 Mg Capsule) 100 mg PO BID PRN PRN Reason: Cough Stop: 01/20/21 01:03 Last Admin: 12/21/20 09:28 Dose: 100 mg Documented by: Dextrose (Dextrose 50% 50 Ml Syringe) 25 - 50 ml IV UD PRN; Protocol PRN Reason: Hypoglycemia Protocol Stop: 01/20/21 01:29 Enoxaparin Sodium (Enoxaparin 100 Mg/1ml Syr) 100 mg SQ Q12H [place] Stop: 01/20/21 08:59 Last Admin: 12/21/20 09:11 Dose: 100 mg Documented by: Famotidine (Famotidine 40 Mg Tablet) 40 mg PO HS [place] Stop: 01/20/21 20:59 Glucagon (Glucagon For Inj 1 Mg Vial) 1 mg IM UD PRN; Protocol PRN Reason: Hypoglycemia Protocol Stop: 01/20/21 01:29 Glucose (Glucose 40% Gel 15 Gm Tube) 15 - 30 gm PO UD PRN; Protocol PRN Reason: Hypoglycemia Protocol Stop: 01/20/21 01:29 Glucose (Glucose 10 Tabs/Tube) 4 - 8 tabs PO UD PRN; Protocol PRN Reason: Hypoglycemia Protocol Stop: 01/20/21 01:29 Guaifenesin/Codeine Phosphate (Guaifenesin/Codeine 100mg/10mg 5ml Udc) 5 ml PO Q6H PRN PRN Reason: Cough Stop: 01/20/21 01:03 Last Admin: 12/21/20 09:28 Dose: 5 ml Documented by: Sodium Chloride (Nss 1000ml) 1,000 mls @ 125 mls/hr IV .Q8H [place] Stop: 12/22/20 01:03 Last Admin: 12/21/20 09:14 Dose: 125 mls/hr Documented by: Dexamethasone 6 mg/ Syringe 1.5 mls @ 1 mls/min IV DAILY [facility] Stop: 12/31/20 08:59 Last Admin: 12/21/20 09:14 Dose: 1 mls/min Documented by: Insulin Aspart (Insulin Aspart 100 Units/Ml 3 Ml Pen) 0 units SC ACHS [facility] Stop: 01/20/21 11:29 Insulin Glargine (Insulin Glargine Solostar 100 Units/Ml 3 Ml Pen) 15 units SC BID [facility] Stop: 01/20/21 08:59 Last Admin: 12/21/20 09:00 Dose: 15 units Documented by: Levothyroxine Sodium (Levothyroxine Sodium 25 Mcg Tablet) 25 mcg PO DAILYBB [facility] Stop: 01/20/21 06:29 Last Admin: 12/21/20 07:56 Dose: 25 mcg Documented by: Magnesium Hydroxide (Magnesium Hydroxide Susp 30 Ml Udc) 30 ml PO Q12H PRN PRN Reason: Constipation Stop: 01/20/21 01:03 Miscellaneous (Carbohydrates For Hypoglycemia ) 15 - 30 gm PO UD PRN PRN Reason: Hypoglycemia Treatment Stop: 01/20/21 01:29 Ondansetron HCl (Ondansetron Inj 2 Mg/Ml 2 Ml Vial) 4 mg IV Q6H PRN PRN Reason: Nausea Stop: 01/20/21 01:03 Phenol (Chloraseptic 1.4% Soln 180 Ml Btl) 2 sprays MT Q2H PRN PRN Reason: sore throat Stop: 01/20/21 08:40 Polyethylene Glycol (Polyethylene (Miralax) 17 Gm Pack) 17 gm PO DAILY PRN PRN Reason: Constipation Stop: 01/20/21 01:03 (1) DVT, bilateral lower limbs Affected thrombotic vein of extremity: unspecified vein of extremity Chronicity: unspecified Qualified Code(s): I82.403 - Acute embolism and thrombosis of unspecified deep veins of lower extremity, bilateral
[2020-12-21] MEDS: INSULIN ASPART 100 UNITS/ML 3 ML PEN SC SCH ×3 (12:47→21:09)
[2020-12-21] MEDS ORDERED: INSULIN GLARGINE SOLOSTAR 100 UNITS/ML 3 ML PEN SQ SCH (21:00)
[2020-12-21] MEDS ORDERED: FAMOTIDINE 40 MG TABLET PO SCH ×3 (21:00)
--- NOTE | 2020-12-21 21:08 | Billing Data ---
Date of Service December 21, 2020 Coding Level of Care Code 63958 Initial Inpt Care Lvl 3
[2020-12-21] MEDS: INSULIN GLARGINE SOLOSTAR 100 UNITS/ML 3 ML PEN SC SCH (21:09)
[2020-12-21] MEDS ORDERED: traMADol HCL 50 MG TABLET PO PRN (22:29)
[2020-12-21] MEDS ORDERED: KETOROLAC TROMETHAMINE 15 MG/ML VIAL IV ONE (22:31)
[2020-12-22] MEDS: LEVOTHYROXINE SODIUM 25 MCG TABLET PO SCH (06:21)
[2020-12-22] MEDS: dexAMETHasone 6 MG in SYRINGE 0 ML IV SCH (08:12)
[2020-12-22] MEDS: ENOXAPARIN 100 MG/1ML SYR SQ SCH (08:12)
[2020-12-22] MEDS: INSULIN ASPART 100 UNITS/ML 3 ML PEN SC SCH ×2 (08:30→12:38)
[2020-12-22] MEDS: INSULIN GLARGINE SOLOSTAR 100 UNITS/ML 3 ML PEN SC SCH (08:30)
[2020-12-22 09:17] LABS: BUN Creatinine Ratio 25.3 (10-20); C Reactive Protein 0.35 mg/dl (0-0.29); Calcium 8.7 mg/dl (8.5-10.1); Creatinine Clr Calc Pharmacy 154.4 ml/min; Est GFR (African American) 143.8; Magnesium 2.1 mg/dl (1.8-2.4); Potassium 3.6 mmol/L (3.5-5.1)
[2020-12-22 09:51] LABS: Hematocrit (blood only) 28.9 % (37-47); Hemoglobin 9.2 g/dL (12.0-16.0); Mean Corpuscular Hemoglobin 27.4 pg (25-34); Mean Corpuscular Hgb Conc 31.8 g/dL (32-36); Platelet Count 124 K/uL (130-400); RDW Coefficient of Variation 20.5 % (11.5-14.5); RDW Standard Deviation 62.6 fL (36.4-46.3); Red Blood Count 3.36 M/uL (4.2-5.4); White Blood Count 3.45 K/uL (4.8-10.8)
[2020-12-22 09:53] LABS: Anisocytosis Present; Basophils # (auto) 0.03 K/uL (0-0.2); Basophils % (auto) 0.9 %; Eosinophils # (auto) 0.05 K/uL (0-0.5); Eosinophils % (auto) 1.4 %; Immature Granulocytes # (auto) 0.07 K/uL (0.00-0.02); Lymphocytes # (auto) 0.89 K/uL (1.2-3.4); Lymphocytes % (auto) 25.8 %; Monocytes # (auto) 0.22 K/uL (0.11-0.59); Monocytes % (auto) 6.4 %; Neutrophils # (auto) 2.19 K/uL (1.4-6.5); Neutrophils % (auto) 63.5 %
[2020-12-22 10:10] LABS: Estimated Average Glucose 126 mg/dl
[2020-12-22] MEDS: BENZONATATE 100 MG CAPSULE PO PRN (11:17)
[2020-12-22] MEDS: ACETAMINOPHEN 325 MG TAB PO PRN (11:17)
--- NOTE | 2020-12-22 11:28 | Discharge Summary ---
Date of Service December 22, 2020 Admission HPI Per Admitting Provider 30-year-old female with a history of bilateral PE, DVT, type 2 diabetes, antiphospholipid antibody syndrome on Lovenox at home, recent diagnosis of COVID-19 on 12/18/2020 who presents to the ER today for acute onset chest pain that started this morning and full body fatigue. She states her Covid symptoms started on 12/14/2020 with fever, chills, cough. She was tested on the at an outside location and tested positive. She states that only today that she started having full body aches, weakness, chest pain with inspiration and increasing shortness of breath with exertion. She states that she also has new upper back pain that she thinks secondary to the coughing. She also has been having nausea and vomiting. He denies any diarrhea, loss of sense of taste or sense of smell. She has continued to have fevers and chills at home. She denies any changes to medications or missed doses of Lovenox during this last week. Main complaint at this time is full body muscle and joint pain and inability to sleep secondary to that pain. ED course significant for CTA of chest showing chronic appearing bilateral pulmonary emboli similar to CTA of chest in January 2020, mild diffuse groundglass consolidation in both lungs consistent with COVID-19. Lower extremity Dopplers showing chronic appearing nonocclusive DVTs in both legs similar to previous exam in 2018. Some concern for Lyme versus anaplasmosis given rapid onset of symptoms however patient denies any recent or previous tick exposures, recent hiking trips, known or suspected tick bites. Admission Exam Per Admitting Provider Constitutional: obese, visibly uncomfortable and in pain Eyes: EOMI, pupils equal and reactive bilaterally, no scleral icterus Cardiac: tachycardic, regular rhythm, no murmurs, gallops or rubs. Normal S1, S2 Pulm: frequent coughing, CTA BL, no wheezes, rhonchi, or crackles, moving air well throughout both lungs Abd: soft, +epigastric tenderness, nondistended, normal bowel sounds, no rebound or guarding Extremities: 2+ peripheral pulses, no edema Neuro: no focal deficits, moving all 4 limbs, A&Ox3 Skin: warm to touch, facial flushing Principal Diagnosis COVID-19 Discharge Exam General: A&Ox3 HENT: NCAT, MMM, EOMI Eyes: PERRLA Neck: Supple, normal range of motion CVS: normal rate and rhythm Resp: b/l good breath sounds Abdomen: Soft, nondistended Extremities: No c/c/e Neuro: No gross focal deficits appreciated Skin: warm and dry, no rashes/lesions/errythema MSK: normal ROM, no joint swelling/erythema Discharge Data Allergies Allergy/AdvReac Type Severity Reaction Status Date / Time No Known Allergies Allergy Verified 12/20/20 20:56 Consultations 12/20/20 22:09 ED Decision to Admit Stat 12/21/20 01:04 Consult Hematology Routine Ordered Studies 12/20/20 19:27 CT angio chest PE protocol Stat 12/20/20 19:41 CT head/brain wo con Stat 12/20/20 22:08 US venous doppler [facility] Stat Hospital Course (1) COVID-19: On the day of discharge patient was doing okay. She was on room air. Hemodynamically patient was doing fine. Pancytopenia improved. Patient was never truly hypoxic therefore did not receive remdesivir did receive Decadron an d was discharged on 4 days of Decadron therapy. Final blood and urine cultures were pending at time of discharge but were negative on the day of discharge. (2) Lymphopenia associated with COVID-19: Improved prior to discharge; likely can due to COVID-19 (3) Thrombocytopenia: Improved prior to discharge; likely can due to COVID-19 (4) anemia: Stable, no evidence of any active (5) Vomiting and diarrhea: Improved. On the day of discharge patient did have breakfast and was tolerating it. Appetite is improved. (6) Hypothyroidism: Cont synthroid per home regimen. (7) Antiphospholipid antibody syndrome: h/o this in records. (8) DVT, bilateral lower limbs: Known h/o bilat DVT seen on venous doppler legs. CT PE study was negative for any new PE lower extremity duplex was negative for any new DVT. Cont current home Lovenox therapy. I did speak to her validation specialist Dr. Sandy on the day of discharge. Patient will follow up with validation specialist as an outpatient. Continue with home Lovenox therapy. (9) Bilateral pulmonary embolism: No changes from prior CT in 2018 to indicate a new acute PE is present. No increased work of breathing or chest pain or hypoxia is present. Cont home Lovenox therapy . (10) Diabetes mellitus type 2 in obese: HbA1c of 6. It was recommended to check her glucose levels daily while she is on Decadron therapy. Total Time Total Time Spent Total Time Spent (In Minutes): 35 Discharge Plan Discharge Items Patient Disposition: Home - Self-Care Reason For Visit: CHEST PAIN Discharge Diagnosis: COVID-19 Activity: Resume your previous activity Non-emergency contact: Primary Care Provider Call non-emergency contact if: your symptoms worsen Follow-up/Referrals: Melissa Hough MD [Primary Care Provider] - 12/26/20 12:00 pm (Date & Time 12/26/2020 12:00 PM Provider Feliciano Downing MD Department Internal Medicine [facility] PLEASE NOTE THAT THIS IS A TELEVIDEO APPOINTMENT. PLEASE FOLLOW THE INSTRUCTIONS PROVIDED IN YOUR EMAIL. IF YOU HAVE ANY QUESTIONS ABOUT YOUR APPOINTMENT OR WOULD LIKE TO CHANGE THE APPOINTMENT, PLEASE CALL ) Diet: Heart Healthy Addtl Attending Provider Instructions: Follow-up with your primary care physician within 1 week. An appointment has been requested. Follow-up with your validation specialist on an urgent appointment. An appointment has been requested. Take Decadron 60 mg daily for 4 more days. Monitor your glucose levels for increase short acting insulin requirement while you are on Decadron. You will need repeat the blood count and basic metabolic panel at your primary care physician appointment to check your pancytopenia and renal function. Pending Studies at Discharge: No Stand-Alone Forms: My [place] [facility], Smoking Cessation Medications and DC Order Prescriptions: New dexamethasone [Decadron] 6 mg tablet 6 mg PO DAILY Qty: 4 RF: 0 Continued insulin aspart U-100 [Novolog Flexpen U-100 Insulin] 100 unit/mL (3 mL) insulin pen 0 unit SUBCUT TIDM RF: 0 Lantus Solostar U-100 Insulin 100 unit/mL (3 mL) insulin pen 7 unit SUBCUT HS RF: 0 famotidine 40 mg tablet 40 mg PO HS Qty: 30 RF: 0 metformin 500 mg tablet 1,000 mg PO BID RF: 0 levothyroxine 25 mcg tablet 25 mcg PO QAM RF: 0 ferrous sulfate 325 mg (65 mg iron) tablet 325 mg PO QAM RF: 0 enoxaparin 100 mg/mL syringe 100 mg subcut Q12H RF: 0 Discharge Orders: Discharge Order (Routine); Ordered 12/22/20 Ordered By: Missy Robbins/Other Patient Handouts: Managing Type 2 Diabetes, A1C Admission Data Admit Date/Time: 12/20/20 23:50 Attending Provider: Missy Tejeda Admit Provider: Maricruz Sheets Primary Care Provider: Melissa Hough Other Providers: Edmund Young ; Benton Kahn V.
--- NOTE | 2020-12-22 14:06 | Electrocardiogram Report ---
Test Reason : Blood Pressure : / mmHG Vent. Rate : 081 BPM Atrial Rate : 081 BPM P-R Int : 158 ms QRS Dur : 106 ms QT Int : 386 ms P-R-T Axes : 068 089 050 degrees QTc Int : 448 ms Normal sinus rhythm Normal ECG When compared with ECG of 20-DEC-2020 19:29, No significant change was found Confirmed by Jorje Reece ([id number]) on 12/22/2020 2:06:16 PM Referred By: REFERRED SELF Confirmed By:Jorje Reece
== END 2020-12-22 14:11 | disposition home or self-care (01) ==
LOC: ED 19:22 → INTOOBSV 23:50 → 2S 23:50 → SUATTDRO 23:50 → 2S 12-21 00:13